=== PATIENT | female | born 1975 | race Caucasian/White ===

== ENCOUNTER → 2019-05-12 | Outpatient (CLI) | payer BC ==
[2019-05-12 15:09] LABS: FREE T4 (FREE THYROXINE) 0.85 NG/DL (0.70-1.48)
--- NOTE | 2019-05-12 15:35 | Diagnostic Imaging Report ---
PROCEDURE: US Thyroid. TECHNIQUE: Multiple real-time grayscale images were obtained of the thyroid in various projections. INDICATION: Hoarseness. COMPARISON: No prior studies are available for comparison. FINDINGS: Right lobe of thyroid measures 5.0 x 1.3 x 1.2 cm and the left lobe measures 5.2 x 2.8 x 2.4 cm. Isthmus is 4 mm in thickness. Hypoechoic nodule in lower pole right lobe measures 7 mm x 3 mm x 5 mm. Left lobe contains numerous solid nodules. Nodule in the upper pole measures 2.0 x 2.2 x 1.0 cm. This is wider than it is tall. No associated microcalcifications are seen. Midlobe solid nodule also is wider than tall measuring 1.3 x 1.0 x 1.5 cm. No microcalcifications are seen. Lower pole nodule is solid measuring 1.1 x 0.8 x 1.0 cm. No microcalcifications are seen. IMPRESSION: Multinodular thyroid with the largest nodule upper pole left lobe. Fine-needle aspiration of the dominant nodule in the left upper lobe could be performed. Dictated by: Dictated on workstation # [id number]
== END ==
LOC: RAD 14:20
PROVIDERS: ATTEND Otolaryngology Otolaryngology/Facial Plastic Surgery
DX: E04.2 Nontoxic multinodular goiter (principal)
CPT/HCPCS: 36415; 76536; 84439; 84443

== ENCOUNTER → 2019-06-11 | Outpatient (CLI) | payer OTHER ==
[~2019-06-11] VITALS: Ht 165.1 cm; Wt 129.5 kg
[~2019-06-11] MED LIST: LIDOCAINE 1% INJ 20 ML 20 ML VIAL INJ ONE
--- NOTE | 2019-06-11 12:13 | Diagnostic Imaging Report ---
INDICATION: Left thyroid nodule. Patient presents for ultrasound-guided fine-needle aspiration. FINDINGS: Patient was brought to the procedure room and placed on the table in the supine position. Ultrasound imaging of the left neck was performed to evaluate appropriate entry site. The left neck was then prepped and draped in the usual sterile fashion. A small amount of 1% lidocaine was utilized for local anesthesia. Total of four passes were made into the dominant nodule in the left isthmus/upper pole of the left lobe, utilizing 25-gauge needles and fine-needle aspiration technique. Patient tolerated the procedure well and left the department in stable condition. IMPRESSION: Successful ultrasound-guided fine-needle aspiration of left isthmus nodule. Pathology results are currently pending. Dictated by: Dictated on workstation # [id number]
== END ==
LOC: RAD 09:48
PROVIDERS: ATTEND Otolaryngology Otolaryngology/Facial Plastic Surgery
DX: E04.1 Nontoxic single thyroid nodule (principal)
CPT/HCPCS: 88173; 88305

== ENCOUNTER 2019-06-18 12:42 | Outpatient (RCR) | payer OTHER | END 2019-06-18 14:00 | disposition home or self-care (01) | PROVIDERS: ATTEND Otolaryngology Otolaryngology/Facial Plastic Surgery | DX: R49.0 Dysphonia (principal) ==

== ENCOUNTER → 2020-01-21 | Outpatient (CLI) | payer OTHER ==
[~2020-01-21] MED LIST changes: +ACET-2840 PO; +ACET325T49 PO; +APIX2.5T PO; +BISA10SU8 RC; +BLOO1EAC87 MC; +BUSP10TA95 PO; +COLE1TAB PO; +DOCU100C37 PO; +ELDE1CAP PO; +ENOX40DI13 SQ; +FEN12TD TD; +GLIP10TA13 PO; +GLIP5TAB13 PO; +HYDR4TAB PO; +INSU100I34 SQ; +LANC1COM6 MC; +LEVO75TA6 PO; -LIDOCAINE 1% INJ 20 ML 20 ML VIAL INJ ONE; +LORA10TA7 PO; +MOM10U PO; +MULT-1021 PO; +MULT-1136 PO; +NEED1DIS MC; +OMEP20CA18 PO; +OXYC1TAB87 PO; +PEN-53 MC; +SENN-20 PO
--- NOTE | 2020-01-21 11:55 | Diagnostic Imaging Report ---
INDICATION: Right wrist pain. Time of exam 11:06 AM 3 views right wrist were obtained. Distal radius and ulna are intact. Carpus is intact. Metacarpals are unremarkable. No fractures are seen. IMPRESSION: No acute bony abnormality is detected. Dictated by: Dictated on workstation # [id number]
== END ==
LOC: RAD FS 10:53
PROVIDERS: ATTEND Nurse Practitioner Family
DX: M25.531 Pain in right wrist (principal)
CPT/HCPCS: 73110

== ENCOUNTER 2020-03-31 20:39 | Outpatient (CLI) | payer OTHER | END 2020-04-01 06:47 | disposition home or self-care (01) | LOC: SLEEP 20:39 | PROVIDERS: ATTEND Nurse Practitioner Family | DX: G47.33 Obstructive sleep apnea (adult) (pediatric) (principal); G47.36 Sleep related hypoventilation in conditions classified elsewhere; G47.61 Periodic limb movement disorder | CPT/HCPCS: 95810 ==

== ENCOUNTER → 2020-05-16 | Outpatient (CLI) | payer OTHER | LOC: LAB FS 10:40 | PROVIDERS: ATTEND Nurse Practitioner Family | DX: Z01.812 Encounter for preprocedural laboratory examination (principal); Z20.828 Contact with and (suspected) exposure to other viral communicable diseases | CPT/HCPCS: 87635 ==

== ENCOUNTER → 2020-05-23 | Outpatient (CLI) | payer OTHER | LOC: SLEEP 19:17 | PROVIDERS: ATTEND Nurse Practitioner Family | DX: G47.33 Obstructive sleep apnea (adult) (pediatric) (principal) | CPT/HCPCS: 95811 ==

== ENCOUNTER 2020-06-28 12:15 | Inpatient (IN) | payer OTHER ==
[~2020-06-28] VITALS: Ht 165 cm; Wt 134.1 kg
[2020-06-28] MEDS ORDERED: CYAN-41 PO (13:14)
[2020-06-28] MEDS ORDERED: HYDR2TAB6 PO (13:14)
[2020-06-28] MEDS ORDERED: INSU100I34 SQ (13:14)
[2020-06-28] MEDS ORDERED: ACET-2650 PO (13:14)
[2020-06-28] MEDS ORDERED: CALC500T64 PO (13:14)
[2020-06-28] MEDS ORDERED: CYCL10TA9 PO (13:14)
[2020-06-28] MEDS ORDERED: DULA1.5P2 SQ (13:14)
[2020-06-28] MEDS ORDERED: ACET-2267 PO (13:14)
[2020-06-28] MEDS ORDERED: ASPI-1238 PO (13:14)
[2020-06-28] MEDS ORDERED: FOLI1TAB33 PO (13:14)
[2020-06-28] MEDS ORDERED: FLUO20CA46 PO (13:14)
[2020-06-28] MEDS ORDERED: L.AC1CAP6 PO (13:14)
[2020-06-28] MEDS ORDERED: MULT-1136 PO (13:14)
[2020-06-28] MEDS ORDERED: GLIP-30 PO (13:14)
[2020-06-28] MEDS ORDERED: NAPR-915 PO (13:14)
[2020-06-28] MEDS ORDERED: BUSP10TA95 PO (13:14)
[2020-06-28] MEDS ORDERED: diphenhydrAMINE 25 MG TAB (BENADRYL) PO PRN (14:00)
[2020-06-28] MEDS ORDERED: ALPRAZolam 0.25 MG (XANAX) TAB PO PRN (14:00)
[2020-06-28] MEDS ORDERED: MELATONIN 3 MG TABLET PO PRN (14:00)
[2020-06-28] MEDS ORDERED: LACTULOSE SYRUP 10GM/15ML (ENULOSE) 30ML UDC PO PRN (14:00)
[2020-06-28] MEDS ORDERED: guaiFENesin/CODEINE (ROBITUSSIN AC) 10ML UDC PO PRN (14:00)
[2020-06-28] MEDS ORDERED: DOCUSATE SODIUM 100 MG (COLACE) CAP PO PRN (14:00)
[2020-06-28] MEDS ORDERED: LOPERAMIDE 2 MG (IMODIUM) TABLET PO PRN (14:00)
[2020-06-28] MEDS ORDERED: CALCIUM CARBONATE 500 MG (TUMS) TAB.CHEW PO PRN (14:00)
[2020-06-28] MEDS ORDERED: BISACODYL 10 MG SUPP (DULCOLAX) PR PRN (14:00)
[2020-06-28] MEDS ORDERED: ONDANSETRON 4 MG (ZOFRAN) ORAL DISSOLVE TAB PO PRN (14:00)
[2020-06-28] MEDS ORDERED: FLEET ENEMA ADULT 1 EA BTL PR PRN (14:00)
[2020-06-28] MEDS ORDERED: ERGO50006 PO (15:00)
[2020-06-28] MEDS ORDERED: GLIP5TAB13 PO (15:00)
[2020-06-28] MEDS ORDERED: CNC1KV IM (15:00)
--- NOTE | 2020-06-28 15:21 | Occupational Therapy Eval ---
OT Evaluation-General/PLF Medical Diagnosis Admission Date Jun 28, 2020 at 15:06 Medical Diagnosis: ORIF R femur with IMN Onset Date: Jun 23, 2020 Therapy Diagnosis Therapy Diagnosis: debility, decreased ADL Status Precautions Precautions/Isolations: Fall Prevention, Standard Precautions Weight Bear Status Weight Bearing Restriction: Touch Toe Bearing Location Restriction: R LE Referral Physician: Jung Ignacio Reason: Evaluation/Treatment Medical History Pertinent Medical History: DM, HTN Additional Medical History cholecystectomy, hypothyroidism, obesity. Current History 12/20/2019 ORIF RLE with plates/screws. 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 06/23/2020 ORIF R femur with IMN Social History Home: Single Level Current Living Status: Alone Entry Into Home: Stairs With Railing Steps Into Home: 3 Pt's Parents house: ramp. Pt's house 3 steps to enter with rails. Plans to return to parents if needed at discharge, but wants to return to her apartment. ADL-Prior Level of Function SCALE: Activities may be completed with or without assistive devices. 9-Qypmhtcuyj-qtmxjan completes the activity by him/herself with no assistance from a helper. 5-Set-up or Clean-up Assistance-helper sets up or cleans up; patient completes activity. [place] assists only prior to or following the activity. 4-Supervision or Touching Assistance-helper provides verbal cues and/or touching/steadying and/or contact guard assistance as patient completes activity. Assistance may be provided throughout the activity or intermittently. 3-Partial/Moderate Assistance-helper does LESS THAN HALF the effort. [place] lifts, holds or supports trunk or limbs, but provides less than half the effort. 2-Substantial/Maximal Assistance-helper does MORE THAN HALF the effort. [place] lifts or holds trunk or limbs and provides more than half the effort. 5-Zhuhwqgwf-onimgo does ALL the effort. Patient does none of the effort to complete the activity. Or, the assistance of 2 or more helpers is required for the patient to complete the activity. If activity was not attempted, code reason: 7-Patient Refused. 9-Not Applicable-not attempted and the patient did not perform the activity before the current illness, exacerbation or injury. 10-Not Attempted due to Environmental Limitations-(lack of equipment, weather restraints, etc.). 88-Not Attempted due to Medical Conditions or Safety Concerns. ADL PLOF Comments Pt independent with all ADLS/IADLS at PLOF, and functional mobility using bilateral canes. Pt has a tub/shower at both parents house and her own house. She owns a commode for over the toilet, umbrella finisher, tub bench, w/c with elevated leg rests, and BUE platform walker. In pt's apartment there is 1 grab bar in her shower, and in her parent's house, grab bars in shower and by toilet. Self Care: Independent Functional Cognition: Independent DME/Equipment: Bath Bench, Bedside Commode, Grab Bars, Reachers, Tub/Shower Drive Self: Yes OT Current Status Subjective Pt agreeable to OT evaluation then OT/PT cotreat. Pt reports 3/10 pain at start of tx, asking for pain medicine, nurse notified. Mental Status/Objective Patient Orientation: Person, Place, Time, Situation Attachments: Drains, Knee Immobilizer Current Glasses/Contacts: Yes Hearing Aids: No Dentures/Partials: No Hand Dominance: Right Upper Extremity ROM WFL, BUE shoulder flexion to approx 150 degrees, able to touch back of head with hands. Upper Extremity Coordination WFL thumb to finger opposition Upper Extremity Sensation WFL, pt denies tingling/numbness BUEs Upper Extremity Strength grossly 4+/5 MMT ADL-Treatment Eating (QC): 6 (Per pt report and clinical judgement) Oral Hygiene (QC): 7 Shower/Bathe Self (QC): 3 (Min A, pt able to wash UEs, chest/abdomen, periarea, buttocks, and LEs. Slight assistance washing R foot.) Upper Body Dressing (QC): 5 (set up assist, pt doffed/donned bra and pulley mortiser operator shirt.) Lower Body Dressing (QC): 3 (Pt able to doff/don pants, assist with donning/doffing knee immobilizer due to difficulty reaching lower straps.) On/Off Footwear (QC): 3 (Pt able to doff bilateral gripper socks, don L sock. Pt able to thread R sock over toes but assist managing up.) Toileting Hygiene (QC): 4 (CGA, pt able to manage clothing and perform hygiene.) Other Treatments R knee immobilizer with activity, can be off in bed or recliner with legs elevated. OT evaluation complete. OT/PT cotreat due to skill of 2 clinicians required which a rehabilitation psychologist could not perform in order to coordinate UE/LEs with tasks, and due to pt's limitations in strength, activity tolerance, standing balance, and mobility. OT focused on UE placement, cues for sequencing and safety and ADLs. PT focused on LE placement, gross overall movement, transfers, and ambulation. Pt used BUE platform walker to perform functional mobility over uneven surface, then transfer in/out of car simulation (see PT eval for QC). Pt then went to room, transferring onto toilet, completed toileting, then used platform walker to stand at sink to wash hands. Pt transferred to recliner, stating fatigue requiring rest break. Pt completed dressing and sponge bath at recliner, assistance with knee immobilizer. Pt then transferred to bed, polar pack in place. Post tx, pt laying in bed, call light in reach and all needs met. Education OT Patient Education: Correct positioning, Energy conservation, Modified ADL techniques, Progress toward Goal/Update tx plan, Purpose of tx/functional activities, Rehab process, Safety issues Teaching Recipient: Patient Teaching Methods: Discussion Response to Teaching: Verbalize Understanding OT Short Term Goals Short Term Goals Time Frame: Jul 05, 2020 Oral hygiene: 5 Toileting hygiene: 5 Shower/bathe self: 5 Lower body dressin OT Alf Goals Gyroscopic Instrument Tester Goals Time Frame: Jul 14, 2020 Eating (QC): 6 Oral Hygiene (QC): 6 Toileting Hygiene (QC): 6 Shower/Bathe Self (QC): 6 Upper Body Dressing (QC): 6 Lower Body Dressing (QC): 6 On/Off Footwear (QC): 6 Additional Goals: 1-Demonstrate ADL Tasks, 2-Verbalize Understanding, 3-Improv eStrength/Zoë 1=Demonstrate adherence to instructed precautions during ADL tasks. 2=Patient will verbalize/demonstrate understanding of assistive devices/modifications for ADL. 3=Patient will improve strength/tolerance for activity to enable patient to p erform ADL's. OT Education/Plan Problem List/Assessment Assessment: Decreased Activ Tolerance, Decreased UE Strength, Impaired Funct Balance, Impaired I ADL's, Impaired Self-Care Skills Discharge Recommendations Plan/Recommendations: Continue POC Treatment Plan/Plan of Care Patient would benefit from OT for education, treatment and training to promote independence in ADL's, mobility, safety and/or upper extremity function for ADL's. Plan of Care: ADL Retraining, Functional Mobility, Group Exercise/Act as Ind, U E Funct Exercise/Act Treatment Duration: Jul 14, 2020 Frequency: At least 5 of 7 days/Wk (IRF) Estimated Hrs Per Day: 1.5 hours per day Agreement: Yes Rehab Potential: Good Time/GCodes Start Time: 14:50 Stop Time: 16:00 Total Time Billed (hr/min): 70 Billed Treatment Time 7047-8841 OT evaluation, [id number] OT/PT cotreat 1, EVM (10'), FA (15'), ADL 3 (45') LETY MACARIO OT Jun 28, 2020 15:21
[2020-06-28] MEDS ORDERED: busPIRone 10 MG (BUSPAR) TAB PO PRN (15:30)
[2020-06-28] MEDS ORDERED: NON-FORMULARY MEDICATION 1 EA EA (Dulaglutide (Trulicity) 1.5 MG) SQ SCH (15:30)
[2020-06-28] MEDS ORDERED: CYANOCOBALAMIN INJ 1000 MCG/ML IM SCH (15:30)
[2020-06-28] MEDS ORDERED: VITAMIN D2 1.25 MG (50,000 UNITS) CAP PO SCH (15:30)
--- NOTE | 2020-06-28 15:32 | Physical Therapy Evaluation ---
PT Evaluation-General Medical Diagnosis Admission Date Jun 28, 2020 at 15:06 Medical Diagnosis: ORIF R femur with IMN Onset Date: Jun 23, 2020 Therapy Diagnosis Therapy Diagnosis: impaired mobility, strength, endurance, ROM Precautions Precautions/Isolations: Fall Prevention, Standard Precautions Weight Bear Status Right Lower Extremity: Right Touch Toe Bearing right knee immobilizer on with activity, she can have it off when in bed or in recliner with legs elevated Referral Physician: Yarelis Feng DO Reason for Referral: Evaluation/Treatment Medical History Pertinent Medical History: DM, Heart Failure, HTN Reviewed History: Yes Social History Home: Single Level Current Living Status: Alone Entry Into Home: Stairs With Railing PT Steps Into Home: 3 Patient states she has been staying with her parents since her issues with her leg and their house has a ramp. Prior Prior Level of Function SCALE: Activities may be completed with or without assistive devices. 6-Zzutoujwua-ductwin completes the activity by him/herself with no assistance from a helper. 5-Set-up or Clean-up Assistance-helper sets up or cleans up; patient completes activity. [place] assists only prior to or following the activity. 4-Supervision or Touching Assistance-helper provides verbal cues and/or touching/steadying and/or contact guard assistance as patient completes activity. Assistance may be provided throughout the activity or intermittently. 3-Partial/Moderate Assistance-helper does LESS THAN HALF the effort. [place] lifts, holds or supports trunk or limbs, but provides less than half the effort. 2-Substantial/Maximal Assistance-helper does MORE THAN HALF the effort. [place] lifts or holds trunk or limbs and provides more than half the effort. 5-Btbmuygid-dpplvh does ALL the effort. Patient does none of the effort to complete the activity. Or, the assistance of 2 or more helpers is required for the patient to complete the activity. If activity was not attempted, code reason: 7-Patient Refused. 9-Not Applicable-not attempted and the patient did not perform the activity before the current illness, exacerbation or injury. 10-Not Attempted due to Environmental Limitations-(lack of equipment, weather restraints, etc.). 88-Not Attempted due to Medical Conditions or Safety Concerns. Bed Mobility: 6 Transfers (B,C,W/C): 6 Gait: 6 Indoor Mobility (Ambulation): Independent Prior Device Use: bilateral platform walker and two single point canes PT Evaluation-Current Subjective Patient in WC pre tx, agrees to PT, has 3/10 pain in right leg. Will be co- treating with OT for part of tx due to poor patient mobility, strength, endurance, coordinate UE and LE during activity, safety and reduce risk of falls. Pt/Family Goals to be independent at home Objective Patient Orientation: Person, Place, Situation right knee immobilizer ROM/Strength ROM Lower Extremities WNL in LLE Strength Lower Extremities LLE hip flexion 4+/5, knee flexion 5/5, knee extension 5/5, dorsiflexion 5/5 Sensory Vision: Wears Glasses Hearing: Functional Sensation Right Lower Extremit: Intact Sensation Left Lower Extremity: Intact Transfers Roll Left & Right (QC): 6 Sit to Lying (QC): 3 Lying to Sitting/Side of Bed(Q: 3 Sit to Stand (QC): 4 Chair/Zog-nq-Zycei Xfer(QC): 4 Toilet Transfer (QC): 4 Car Transfer (QC): 4 Patient performs bed mobility with independence, supine <-> sit min assist, sit <-> stand CGA, transfers CGA, car transfer CGA. Occasional cues for positioning. Gait Does the Patient Walk?: Yes Mode of Locomotion: Walk Anticipated Mode of Locomotion: Walk Walk 10 feet (QC): 4 Walk 50 ft with 2 Turns(QC): 4 Walk 150 ft (QC): 88 Walking 10ft/uneven surface-QC: 4 Distance: 60'x2 Gait Assistive Device: Walker Platform (bilateral) Comments/Gait Description Patient can ambulate 60' with a bilateral platform walker with CGA (including 50' with at least 2 turns of 90 degrees and 10' over an uneven surface). P malia has occasional unsteadiness but no LOB, she needs occasional cues to maintain TTWB on the right side but is mostly compliant. Wheelchair Training Does the Pt Use a Wheelchair?: No Wheel 50 ft with 2 turns (QC): 9 Wheel 150 ft (QC): 9 Stairs 1 Step (curb) (QC): 88 4 Steps (QC): 88 12 Steps (QC): 88 Balance Sitting Static: Normal Sitting Dynamic: Normal Standing Static: Good Standing Dynamic: Good Picking up an Object (QC): 88 Treatment PT performed bed mobility and transfers, ambulation, assisted with positioning and standing during toileting and bathing and dressing, OT worked on toileting and bathing and dressing, UE positioning and safety during activity. Assessment/Needs Patient has impaired mobility, strength, endurance, ROM. Patient in bed post tx with nurse call, phone, tray, [facility] care on, all needs met. Patient cannot ambulate with a regular rolling walker because it hurts her hands/wrists, patient is CGA with transfers and ambulation. Rehab Potential: Fair PT Short Term Goals Short Term Goals Time Frame: Jul 05, 2020 Roll Left & Right: 6 Sit to lyin Lying to sitting on side of be: 6 Sit to stand: 6 Chair/lnt-to-qmidi transfer: 5 Walk 10 feet: 5 Walk 50 feet with two turns: 5 Walk 150 feet: 5 PT Senior Care Goals Senior Care Goals PT Cardiac Nurse Goals Time Frame: Jul 19, 2020 Roll Left & Right (QC): 6 Sit to Lying (QC): 6 Lying-Sitting on Side/Bed(QC): 6 Sit to Stand (QC): 6 Chair/Jtr-bp-Pxvhx Xfer(QC): 6 Toilet Transfer (QC): 6 Car Transfer (QC): 6 Does the Patient Walk: Yes Walk 10 feet (QC): 6 Walk 50ft with 2 Turns (QC): 6 Walk 150 ft (QC): 6 Walking 10ft on Uneven Surface: 6 1 Step (curb) (QC): 6 4 Steps (QC): 3 12 Steps (QC): 88 Picking up an Object (QC): 88 Wheel 50 feet with 2 turns (QC: 9 Wheel 150 feet: 9 PT Plan Problem List Problem List: Activity Tolerance, Functional Strength, Safety, Balance, Gait, Transfer, Bed Mobility, ROM Treatment/Plan Treatment Plan: Continue Plan of Care Treatment Plan: Bed Mobility, Education, Functional Activity Zoë, Functional Strength, Group Therapy, Gait, Safety, Therapeutic Exercise, Transfers Treatment Duration: Jul 19, 2020 Frequency: At least 5 of 7 days/Wk (IRF) Estimated Hrs Per Day: 1.5 hours per day Patient and/or Family Agrees t: Yes Safety Risks/Education Patient Education: Gait Training, Transfer Techniques, Reviewed Precautions, Correct Positioning, Reviewed Don/Doff Brace, Disease Process Teaching Recipient: Patient Teaching Methods: Demonstration, Discussion Response to Teaching: Reinforcement Needed Discharge Recommendations Plan Patient will perform bed mobility and transfer training, balance and endurance training, functional strengthening, stair training, gait training, and education, to improve functional mobility and independence at home. Therapy Discharge Recommendati: Home & Family Time/GCodes Time In: 1440 Time Out: 1600 Total Billed Treatment Time: 70 Total Billed Treatment 1 visit EVM 10' FA 60' PT eval from [id number], OT eval from [id number], co-treat from [id number]. LORI CHAMBERLAIN PT Jun 28, 2020 15:32
--- NOTE | 2020-06-28 15:37 | PM&R Post Admission Assessment ---
PM&R Date of Visit: Jun 28, 2020 Time of Visit: 18:00 History of Present Illness CC: Right femur fracture bucky breakage with ORIF Revision HPI: This is a 45yoWF known to us from rehab stay December of last year for a right femur fracture- was non-weight bearing at that point and went home with her parents, she is S/P revision of the ORIF of the right femur on 06/23/[address] Randhawa along with Dr Kerr with bone graft and removal of deep-ortho implant, she has a history of type II DM, obesity, hypothyroidism and post-op anemia, her Hgb is 8.6, she will return home with her parents, she is at this current time minimum assist for bed mobility, transfers, and gait is 40 feet with a platform walker. Overall she is doing very well and will benefit from inpatient rehab. BM+ today. Received iron infusions while at [facility]. Diet changed to accommodate her choices. Assessment: s/p right distal hip fracture Morbid obesity BMI 51 RAY on CPAP Night time hypoxia DM with variable sugars Plan: Monitor sugar closely May need DC OHA and transition to insulin IRF protocol Previous IRF stay 12/25/19: Monitor sugar 200's consistently Dietary consult Friday Pain control but decrease as much as possible 12/26/19: Fentanyl patch 12mcg low dose in addition to Dilaudid breakthrough BM regimen Carb restriction working well Dietary consult tomorrow 12/27/19: Continue Fentanyl Hemoglobin 8.4 dropped 2 points will check Iron level will likely need Iron Infusions Pain only at a 4 right now Needs to have a bowel movement will be given Laxatives Dietary consult for minimizing carbs 12/28/19: Work on decreasing Carbohydrates Dietary consult appreciated Pain control improved 12/29/19: Start low dose Levemir Blood sugar management aggressively Minimize Carbohydrates 12/30/19: Continue Fentanyl patch may need to increase to the 25 Increase Diabetic medication Monitor closely 12/31/19: Iron infusions to complete Blood sugar management Monitor closely 01/01/2020: Continue insulin Glyburide 5 mg twice daily has been a good change Anxiety treatment Pain control with Fentanyl patch 01/02/20: Pain controlled Bowel regimen Monitor closely DC 01/03/20: Hemoglobin 9.3 Will need one more dose of IV Iron before she goes home on Friday Bowels moved yesterday Continue pain control 01/04/20: It [birth year] birthday today Mid line was replaced yesterday Blood sugars are reasonable Giving her her own insulin injections Bowels moved yesterday Discharge tomorrow Hospital course: Pt had an uneventful hospital course for twelve days after suffering a right distal femur fracture. She did respond to Fentanyl patch of 12 micrograms along with Dilaudid along with Tylenol with good results. Narcotic bowel resolved with laxatives and she was able to participate in therapy with wheelchair mobility and regain enough of her ADLs in order to return home. Overall she did well, was discharged in improved condition, started her on insulin and will monitor pt closely with a close follow-up with PCP. Past Ympwujo-Bglpwd-Vtcius Hx Past Med/Social Hx: Reviewed Nursing Past Med/Soc Hx, Reviewed and Corrections made Patient Social History Marrital Status: single Employed/Student: employed Alcohol Use: Denies Use Smoking Status: Never a Smoker Recent Hopitalizations: Yes Seasonal Allergies Seasonal Allergies: No Past Medical History Surgeries: Orthopedic (right femur x 2) Respiratory: Sleep Apnea Currently Using CPAP: Yes Currently Using BIPAP: No Cardiac: High Cholesterol, Hypertension Neurological: Neuropathy Gastrointestinal: Gastroesophageal Reflux, Chronic Diarrhea Musculoskeletal: Arthritis Endocrine: Diabetes, Non-Insulin dep History of Blood Disorders: No Adverse Reaction to Blood [place]: No Self Care: Independent Functional Cognition: Independent 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 Drive Self: Yes PM&R Allergy/Meds/Data Review Allergies Coded Allergies: tramadol (Unverified Allergy, Unknown, Nausea, 12/24/19) dizzy, nausea, inability to think hydrocodone (Unverified Adverse Reaction, Unknown, Nausea, 12/24/19) dizzy, nausea, inability to think oxycodone (Unverified Adverse Reaction, Unknown, Nausea, 12/24/19) dizzy, nausea, inabiity to think Home Medications Scheduled Acetaminophen (Tylenol Extra Strength), 1,000 MG PO Q8H, (Reported) Aspirin (Aspirin EC), 81 MG PO BID, (Reported) Calcium Carbonate (Calcium Carbonate), 500 MG PO DAILY, (Reported) Colestipol HCl (Colestipol HCl), 1 GM PO BID, (Reported) Cyanocobalamin (Cyanocobalamin Injection), 1,000 MCG IM MONTHLY, (Reported) Cyanocobalamin (Vitamin B-12) (Vitamin B-12), 1,000 MCG PO DAILY, (Reported) Dulaglutide (Trulicity), 1.5 MG SQ WED, (Reported) Elderberry Fruit and Flower (Black Elderberry 575 mg Cap), 1 EACH PO DAILY, (Reported) Ergocalciferol (Vitamin D2) (Vitamin D2), 1,250 MCG PO TU,FRI, (Reported) Fluoxetine HCl (Fluoxetine HCl), 20 MG PO DAILY, (Reported) Folic Acid (Folic Acid), 1 MG PO DAILY, (Reported) Glipizide (Glipizide), 5 MG PO DAILY, (Reported) Insulin Glargine,Hum.rec.anlog (Basaglar Kwikpen U-100), 10 UNIT SQ BID, (Rep orted) L.acidoph & Paracasei,B.lactis (Probiotic), 1 EACH PO DAILY, (Reported) Levothyroxine Sodium (Levothyroxine Sodium), 75 MCG PO DAILY, (Reported) Loratadine (Loratadine), 10 MG PO HS, (Reported) Multivitamin (Multivitamin), 1 EACH PO DAILY, (Reported) Naproxen (Naproxen), 500 MG PO BID, (Reported) Omeprazole (Omeprazole), 20 MG PO BID, (Reported) Scheduled PRN Acetaminophen (Tylenol Arthritis), 650 MG PO TID PRN for PAIN-MILD (1-4), (Reported) Buspirone HCl (Buspirone HCl), 10 MG PO TID PRN for ANXIETY, (Reported) Cyclobenzaprine HCl (Cyclobenzaprine HCl), 10 MG PO Q8H PRN for SPASMS, (Reported) Hydromorphone HCl (Hydromorphone HCl), 1 MG PO Q4H PRN for PAIN-SEVERE (8-10), (Reported) Discontinued Medications Acetaminophen (Acetaminophen), 650 MG PO Q4H PRN for PAIN-MILD (1-4) Discontinued Reason: Duplicate Order Apixaban (Eliquis), 2.5 MG PO BID Discontinued Reason: No Longer Taking Blood-Glucose Meter (Blood Glucose Meter), EACH , (DME) Discontinued Reason: Duplicate Order Buspirone HCl (Buspirone HCl), 10 MG PO TID PRN for ANXIETY Discontinued Reason: Duplicate Order Fentanyl (Fentanyl Patch 12 MCG), 12 MCG TD Q72H Discontinued Reason: Duplicate Order Glipizide (Glipizide), 5 MG PO BIDAC Discontinued Reason: Duplicate Order Glipizide (Glipizide Xl), 5 MG PO, (Reported) Discontinued Reason: Duplicate Order Hydromorphone HCl (Hydromorphone HCl), 4 MG PO Q6HR PRN for PAIN-SEVERE (5-10) Discontinued Reason: Duplicate Order Insulin Glargine,Hum.rec.anlog (Basaglar Kwikpen U-100), 10 UNIT SQ BID Discontinued Reason: Duplicate Order Lancets/Blood Glucose Strips (Lancet 30G-Glucose Test Strip), EACH MC, (DME) Discontinued Reason: Duplicate Order Multivits-Min/Iron/FA/Lutein (Centrum Silver Women Tablet), 1 EACH PO DAILY, (Reported) Discontinued Reason: Duplicate Order [place], Insulin Disposable (Pen [place]), EACH MC, (DME) Discontinued Reason: Duplicate Order Pen Needle, Diabetic (Advocate Pen Needle), EACH MC BID, (DME) Discontinued Reason: Duplicate Order Sennosides/Docusate Sodium (Senna-Time S Tablet), 1 EA PO BID Discontinued Reason: Duplicate Order Current Medications Current Medications Reviewed Review of Systems Constitutional: see HPI, malaise, weakness EENTM: no symptoms reported Respiratory: no symptoms reported Cardiovascular: no symptoms reported Gastrointestinal: no symptoms reported Genitourinary: no symptoms reported Musculoskeletal: joint pain (right leg pain) Skin: no symptoms reported Psychiatric/Neurological: No Symptoms Reported All Other Systems Reviewed Negative Unless Noted: Yes Physical Exam Physical Exam Vital Signs Capillary Refill : Height, Weight, BMI Height: '" Weight: lbs. oz. kg; 51.50 BMI Method: General Appearance: No Apparent Distress, WD/WN, Obese, Other (pale) Eyes: Bilateral Eye Normal Inspection, Bilateral Eye PERRL HEENT: PERRL/EOMI, Normal ENT Inspection, Pharynx Normal Neck: Full Range of Motion, Normal Inspection, Non Tender, Supple, Carotid Bruit Respiratory: Chest Non Tender, Lungs Clear, Normal Breath Sounds, No Accessory Muscle Use, No Respiratory Distress Cardiovascular: Regular Rate, Rhythm, No Edema, No Gallop, No JVD, No Murmur, Normal Peripheral Pulses Gastrointestinal: Normal Bowel Sounds, No Organomegaly, No Pulsatile Mass, Non Tender, Soft Back: Normal Inspection, No CVA Tenderness, No Vertebral Tenderness Extremity: Normal Capillary Refill, Normal Inspection, Normal Range of Motion (except right leg), Non Tender, No Calf Tenderness, No Pedal Edema Neurologic/Psychiatric: Alert, Oriented x3, No Motor/Sensory Deficits, Normal Mood/Affect, Motor Weakness (right leg) Skin: Normal Color, Warm/Dry Lymphatic: No Adenopathy PM&R Medical Assessment & Plan REHAB/MEDICAL ASSESSMENT AND PLAN: REHAB IMPAIRMENT GROUP: Right hip fracture revision due to breakage of bucky ETIOLOGIC DIAGNOSIS: Right hip fracture revision due to breakage of bucky The comorbidities that impact the patients function and/or functional outcome by: obesity, DM, anxiety, severe pain issues, anemia, iron deficiency, RAY on CPAP REHAB PLAN: The patient is being admitted to our comprehensive inpatient rehabilitation facility and can tolerate the intensity of service consisting of at least: 180 minutes of therapy a day, 5 out of 7 days a week Rehab treatment will consist of: PT OT will focus on regaining function of ambulation with right leg limitations and gain independence in ADL's in order to return home to live independently The patient/family has a good understanding of our discharge process and will benefit from an interdisciplinary inpatient rehabilitation program. The patient has potential to make improvement and is in need of at least two of the following multidisciplinary therapies including but not limited to physical, occupational, speech, and prosthetics and orthotics. Additionally the patient will need services from respiratory, nutritional services, wound care, ps ychology, etc. (Customize this to each patient). Given the patients complex condition and risk of further medical complications, rehabilitation services cannot be safely or effectively provided at a lower level of care such as a custodial facility. BARRIERS TO DISCHARGE: weight bearing limitations ESTIMATED LOS: 14 days DISPOSITION: Home RELEVANT CHANGES SINCE PREADMISSION SCREENING: I have compared the patients medical and functional status at the time of the preadmission screening and there are: no changes PROGNOSIS: Good REHABILITATION GOALS: 1. PT OT will focus on regaining function of ambulation with right leg limitations and gain independence in ADL's in order to return home to live independently All the above goals were reviewed with the patient and he/she is in agreement. By signing this document, I acknowledge that I have personally performed a full physical examination on this patient within 24 hours of admission to this inpatient rehabilitation facility and have determined the patient to be able to tolerate the above course of treatment at an intensive level for a reasonable period of time. I will be completing a detailed individualized Plan of Care for this patient by day #4 of the patients stay based upon the Preadmission Screen, the Post-Admission Evaluation, and the therapy evaluations. Admission Dx/Comorbidities: (1) History of revision of total replacement of right hip joint ICD Codes: Z96.641 - Presence of right artificial hip joint (2) Diabetes ICD Codes: E11.9 - Type 2 diabetes mellitus without complications (3) Obesity, morbid, BMI 50 or higher ICD Codes: E66.01 - Morbid (severe) obesity due to excess calories (4) RAY on CPAP ICD Codes: G47.33 - Obstructive sleep apnea (adult) (pediatric); Z99.89 - Dependence on other enabling machines and devices Assessment/Plan Assessment and Plan Assess & Plan/Chief Complaint Assessment: s/p right distal hip fracture bucky breakage s/p revision 06/23/[address] [facility] [address] Randhawa with removal of deep implant and replacement Morbid obesity BMI 47 RAY on CPAP Night time hypoxia DM with variable sugars Post op anemia due to acute blood loss HTN GERD Plan: IRF protocol Pain control Monitor hgb Iron infusions? RAHUL BRIDGES DO Jun 28, 2020 15:37
[2020-06-28] MEDS: inSUlin ASPART (NovoLOG) 1 UNIT/0.01 ML (CHARGE PER UNIT) SC SCH ×2 (16:00→20:28)
[2020-06-28] MEDS: HYDROmorphone (DILAUDID) 2 MG TAB PO PRN ×2 (16:23→20:50)
--- NOTE | 2020-06-28 16:39 | Progress Note ---
CALLY ROSENBERG MED STUDENT 06/28/20 0476: Progress Note CC: Revision ORIF R femur HPI: This is a 45 year old female presenting to the inpatient rehab facility transferred from [facility] complaining of 3/10 pain along her femur. She had a commuted distal femur fracture after ORIF in 2019. On 06/23/2020, she had a revision of the ORIF of the right femur with IMN, bone graft, and removal of deep ortho implant. She had a unilateral right hip fract ure prothesis that was a nonunion of the fracture site and plate breakage. She states that she received 2 blood transfusions during the surgery. She received iron yesterday and today. She states she needs 2 more iron transfusions and then a repeat of the series. Hb was 8.6. She has a Prevena plus VAC placed on the right hip/knee incision s/p revision of ORIF. She cannot function independently or do ALDs. She states she is on nonweightbearing exercises and can flex her foot. She is unable to flex at the knee but hoping she will regain some function. Her goal is to function enough to become independent and not have to go back to live with her parents. She is on fall precautions. Her PCP is Amisha Clemens NP. PMH: DM2, obesity, hypothyroid ([place]), post op anemia (Hb 8.6), arthritis PSH: cholecystectomy. ORIF right femur, right ankle surgery ALL: tramadol, hydrocodone, oxycodoneHome Meds: colestipol (for diarrhea from gallbadder removal), loratadine, multivitamins, omeprazole, acetaminophen, buspirone (for anxiety after surgery), calcium carbonate, diphenhydramine, dulaglutide, fluoxetine, glipizide, insulin glargine, levothyroixine, mecobalamin, meloxicam (for arthritis in shoulder after fall), probiotics, sambuscus SH: previously independent with ADLs. 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 Negative for DUKES, cough, SOB, fever. Exam: Patient is WN and in no acute distress. Lungs are clear bilaterally without retractions. Heart is RRR. Right leg is in brace. A&O x3. Labs/Imaging: Labs: N/A CT - large area of fibrous union X-ray - 06/23/20. Femur 2 views Rt. Thigh 2 views RT. Reason: post op. There is a long intramedullary bucky in place stabilizing the distal femoral metaphysics. Screws are in place stabilizing the metaphysics region. Considerations again given for osteomyelitis distal femur now stabilized by intramedullary bucky. Prominent arthritic change of the knee is noted. The hip shoes moderate osteoarthritis. Cutaneous surgical clips are multiple. Danilo Love DO A:Revision ORIF right femur Post operative anemia DM Hypothyroid P: Revision ORIF right femur - consult PT/OT. continue PT and OT Post op anemia - follow up with Luis about the blood and iron transfusions whether they need to be continued. DM - continue medications Hypothyroid - continue Levothyroxine Supervisory-Addendum Brief Verification & Attestation Results interpretation: Verified all documentation YARELIS BRIDGES DO 06/29/20 1102: Supervisory-Addendum Brief Verification & Attestation Participated in pt care: history, MDM, physical Personally performed: exam, history, MDM, supervision of care Care discussed with: Medical Student Procedures: n/a Results interpretation: Verified all documentation Verification and Attestation of Medical Student E/M Service A medical student performed and documented this service in my presence. I reviewed and verified all information documented by the medical student and made modifications to such information, when appropriate. I personally performed the physical exam and medical decision making. Yarelis Bridges, Jun 29, 2020,11:02 CALLY ROSENBERG MED STUDENT Jun 28, 2020 16:39 YARELIS BRIDGES DO Jun 29, 2020 11:02
[2020-06-28] MEDS: ACETAMINOPHEN 500 MG TAB (TYLENOL) PO SCH (17:34)
[2020-06-28 17:49] VITALS: BP 133/55
[2020-06-28] MEDS ORDERED: ACETAMINOPHEN 325 MG TABLET PO PRN (18:00)
[2020-06-28] MEDS: NAPROXEN 250 MG (NAPROSYN) TABLET PO SCH (20:49)
[2020-06-28] MEDS: LORATADINE (CLARITIN) 10 MG TAB PO SCH (20:49)
[2020-06-28] MEDS: ASPIRIN E.C. 81 MG (ECOTRIN) TAB PO SCH (20:49)
[2020-06-28] MEDS: SENNA W/DOCUSATE (SENOKOT S) TABLET PO SCH (20:50)
[2020-06-28] MEDS: COLESTIPOL 1 GM (COLESTID) TAB PO SCH (20:50)
[2020-06-28] MEDS: DOCUSATE SODIUM 100 MG (COLACE) CAP PO SCH (20:50)
[2020-06-28] MEDS: polyethylene glycoL POWDER 17 GM (MIRALAX) PACK PO SCH (20:50)
[2020-06-29] MEDS: ACETAMINOPHEN 500 MG TAB (TYLENOL) PO SCH ×3 (00:47→15:37)
[2020-06-29] MEDS: HYDROmorphone (DILAUDID) 2 MG TAB PO PRN ×5 (01:06→20:51)
[2020-06-29 05:21] LABS: HEMATOCRIT 26 % (35-52); MONOCYTES # (AUTO) 0.4 10^3/uL (0.0-1.0); MONOCYTES % (AUTO) 7 % (0-12)
[2020-06-29 05:22] LABS: BASOPHILS % (AUTO) 1 % (0-10); EOSINOPHILS # (AUTO) 0.2 10^3/uL (0.0-0.3); EOSINOPHILS % (AUTO) 3 % (0-10); HEMOGLOBIN 8.6 g/dL (11.5-16.0); LYMPHOCYTES # (AUTO) 1.4 10^3/uL (1.0-4.0); LYMPHOCYTES % (AUTO) 23 % (12-44); MEAN CORPUSCULAR HEMOGLOBIN 31 pg (25-34); MEAN CORPUSCULAR HGB CONC 33 g/dL (32-36); MEAN CORPUSCULAR VOLUME 93 fL (80-99); MEAN PLATELET VOLUME 10.4 fL (9.0-12.2); NEUTROPHILS # (AUTO) 3.9 10^3/uL (1.8-7.8); NEUTROPHILS % (AUTO) 63 % (42-75); PLATELET COUNT 145 10^3/uL (130-400); WHITE BLOOD COUNT 6.1 10^3/uL (4.3-11.0)
[2020-06-29 05:39] LABS: ALANINE AMINOTRANSFERASE 16 U/L (0-55); ALBUMIN 2.7 GM/DL (3.2-4.5); ALKALINE PHOSPHATASE 79 U/L (40-136); BILIRUBIN,TOTAL 0.4 MG/DL (0.1-1.0); BUN/CREATININE RATIO 12; CALCIUM 8.8 MG/DL (8.5-10.1); CARBON DIOXIDE 24 MMOL/L (21-32); CHLORIDE 107 MMOL/L (98-107); GFR ESTIMATED > 60; GLUCOSE 149 MG/DL (70-105); SODIUM 140 MMOL/L (135-145); TOTAL PROTEIN 5.3 GM/DL (6.4-8.2)
[2020-06-29 06:25] VITALS: BP 109/54
[2020-06-29] MEDS: inSUlin ASPART (NovoLOG) 1 UNIT/0.01 ML (CHARGE PER UNIT) SC SCH ×4 (06:25→20:59)
[2020-06-29] MEDS: glipiZIDE 5 MG (GLUCOTROL) TAB PO SCH (08:07)
[2020-06-29] MEDS: SENNA W/DOCUSATE (SENOKOT S) TABLET PO SCH ×2 (08:07→20:59)
[2020-06-29] MEDS: COLESTIPOL 1 GM (COLESTID) TAB PO SCH ×2 (08:07→20:59)
[2020-06-29] MEDS: DOCUSATE SODIUM 100 MG (COLACE) CAP PO SCH ×2 (08:07→20:58)
[2020-06-29] MEDS: ASPIRIN E.C. 81 MG (ECOTRIN) TAB PO SCH ×2 (08:07→20:49)
[2020-06-29] MEDS: PANTOPRAZOLE 20 MG TABLET (PROTONIX) PO SCH (08:07)
[2020-06-29] MEDS: FLUoxetine HCL 20 MG (PROzac) CAP PO SCH (08:07)
[2020-06-29] MEDS: CALCIUM CARBONATE 500 MG (TUMS) TAB.CHEW PO SCH (08:07)
[2020-06-29] MEDS: MULTIVIT W/MINERALS TAB (THERAGRAN M) PO SCH (08:07)
[2020-06-29] MEDS: CYANOCOBALAMIN 1,000 MCG (VITAMIN B-12) TABLET PO SCH (08:07)
[2020-06-29] MEDS: NAPROXEN 250 MG (NAPROSYN) TABLET PO SCH ×2 (08:08→20:49)
[2020-06-29] MEDS: LEVOTHYROXINE 75 MCG (LEVOTHROID) TABLET PO SCH (08:08)
[2020-06-29] MEDS: FOLIC ACID 1 MG TAB PO SCH (08:08)
[2020-06-29] MEDS: polyethylene glycoL POWDER 17 GM (MIRALAX) PACK PO SCH ×2 (08:08→20:50)
[2020-06-29] MEDS: LACTOBACILLUS ACIDOPHILUS (PROBIOTIC) CAPSULE PO SCH (08:08)
[2020-06-29] MEDS ORDERED: NON-FORMULARY MEDICATION 1 EA EA (Elderberry Fruit and Flower (Black Elderberry 575 mg Cap PO SCH (09:00)
--- NOTE | 2020-06-29 09:00 | Physical Therapy Daily Note ---
PT Daily Note-Current Subjective Patient in WC pre tx, agrees to PT, has 4/10 pain in right leg, has to get her bra on and brush her teeth which she does without assist. Appearance Patient in WC post tx with nurse call, phone, tray, polar care on. Mental Status Patient Orientation: Person, Place, Situation Attachments: Polar Pack Transfers SCALE: Activities may be completed with or without assistive devices. 9-Sllhicsyoa-krxszjp completes the activity by him/herself with no assistance from a helper. 5-Set-up or Clean-up Assistance-helper sets up or cleans up; patient completes activity. [place] assists only prior to or following the activity. 4-Supervision or Touching Assistance-helper provides verbal cues and/or touching/steadying and/or contact guard assistance as patient completes activity. Assistance may be provided throughout the activity or intermittently. 3-Partial/Moderate Assistance-helper does LESS THAN HALF the effort. [place] lifts, holds or supports trunk or limbs, but provides less than half the effort. 2-Substantial/Maximal Assistance-helper does MORE THAN HALF the effort. [place] lifts or holds trunk or limbs and provides more than half the effort. 8-Wjumqzqmt-xpueda does ALL the effort. Patient does none of the effort to complete the activity. Or, the assistance of 2 or more helpers is required for the patient to complete the activity. If activity was not attempted, code reason: 7-Patient Refused. 9-Not Applicable-not attempted and the patient did not perform the activity before the current illness, exacerbation or injury. 10-Not Attempted due to Environmental Limitations-(lack of equipment, weather restraints, etc.). 88-Not Attempted due to Medical Conditions or Safety Concerns. Roll Left & Right (QC): 6 Sit to Lying (QC): 6 Lying to Sitting/Side of Bed(Q: 6 Sit to Stand (QC): 6 Chair/Lcd-bm-Sbixd Xfer(QC): 6 Weight Bearing Right Lower Extremity: Right Touch Toe Bearing right knee immobilizer on with activity, she can have it off when in bed or in recliner with legs elevated Gait Training Distance: 60'x4 Walk 10 feet (QC): 4 Walk 50 ft with 2 Turns(QC): 4 Gait Persons Needed: 1 Gait Assistive Device: Parallel Bars (bilateral) SBA, compliant with TTWB on the right side Wheelchair Training Does the Pt Use a Wheelchair?: Yes Wheel 150 ft (QC): 6 Type of Wheelchair: Manual Exercises Supine Ex: Ankle pumps, Quad Set, Glut sets Supine Reps: 20 (right side) standing hip flexion on right side with extended knee x20, ankle pumps on right side, heel raises on left side and mini squats on left side, all x20 Treatments bed mobility and transfers, ambulation, LE ROM Assessment Current Status: Fair Progress improving general mobility PT Short Term Goals Short Term Goals Time Frame: Jul 05, 2020 Roll Left & Right: 6 Sit to lyin Lying to sitting on side of be: 6 Sit to stand: 6 Chair/zhe-sw-jtuwq transfer: 5 Walk 10 feet: 5 Walk 50 feet with two turns: 5 Walk 150 feet: 5 PT Assisted Goals Assisted Goals PT Assisted Goals Time Frame: Jul 19, 2020 Roll Left & Right (QC): 6 Sit to Lying (QC): 6 Lying-Sitting on Side/Bed(QC): 6 Sit to Stand (QC): 6 Chair/Ush-gd-Tnclf Xfer(QC): 6 Toilet Transfer (QC): 6 Car Transfer (QC): 6 Does the Patient Walk: Yes Walk 10 feet (QC): 6 Walk 50ft with 2 Turns (QC): 6 Walk 150 ft (QC): 6 Walking 10ft on Uneven Surface: 6 1 Step (curb) (QC): 6 4 Steps (QC): 3 12 Steps (QC): 88 Picking up an Object (QC): 88 Wheel 50 feet with 2 turns (QC: 9 Wheel 150 feet: 9 PT Plan Problem List Problem List: Activity Tolerance, Functional Strength, Safety, Balance, Gait, Transfer, Bed Mobility, ROM Treatment/Plan Treatment Plan: Continue Plan of Care Treatment Plan: Bed Mobility, Education, Functional Activity Zoë, Functional Strength, Group Therapy, Gait, Safety, Therapeutic Exercise, Transfers Treatment Duration: Jul 19, 2020 Frequency: At least 5 of 7 days/Wk (IRF) Estimated Hrs Per Day: 1.5 hours per day Patient and/or Family Agrees t: Yes Safety Risks/Education Patient Education: Gait Training, Transfer Techniques, Correct Positioning, Safety Issues Teaching Recipient: Patient Teaching Methods: Demonstration, Discussion Response to Teaching: Reinforcement Needed Time/GCodes Time In: 0800 Time Out: 0900 Total Billed Treatment Time: 60 Total Billed Treatment 1 visit GT 30' EX 30' LORI CHAMBERLAIN PT Jun 29, 2020 09:00
--- NOTE | 2020-06-29 10:24 | ST Cognitive Linguistic Eval ---
Speech Evaluation-General Medical Diagnosis ORIF R femur with IMN Onset Date: Jun 23, 2020 Therapy Diagnosis Therapy Diagnosis: Cognitive-communication Referral Referring Physician: Dr. Feng Medical History Pertinent Medical History: DM, HTN Reviewed History: Yes Social History Current Living Status: Alone Speech PLF-Current Status Prior Level of Function Patient lives in her home alone and was independent with her daily needs. 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 Subjective Patient was pleasant and cooperative with the cognitive assessment. Language Eval: Auditory Comprehends Simple Yes/No Ques: Functional Indent/Objects Multiple [place]: Functional Ident/Pics in Multiple [place]: Functional Follows 1-Step Commands: Functional Follows Complex Directions: Functional Follows General Conversations: Functional Language Eval: Verbal Language Completes Spontaneous Greeting: Functional Produces Auto, Serial Info: Functional Imitates Simple Words/Phrases: Functional Word Finding: Functional Requests Basic Needs: Functional States Basic Personal Info: Functional Expresses Complex Ideas: Functional Objective Cognitive Domain Attention: WNL Memory: WNL Problem Solving: Functional Executive Functions: WNL Visuospatial Skills: WNL Composite Severity Rating: WNL Clock Drawing Severity Rating: WNL Objective Formal/Standardized Tests [facility] Mental Status ([facility]) Results 29/30, within normal range of function Oral Motor/Speech Production Within Normal Limits Impression Patient is a pleasant 45 y/o female who was admitted to the ARU following a revision surgery of her right leg. Patient was given the SLUMS with a score of 29/30 obtained. Patient's score is within the normal range of function and does not indicate the need for further ST services at this time. Speech Patient Assess Expression of Ideas/Wants: Expression (4) Understanding Verbal Content: Understands (4) Brief Interview-Mental Status: Yes Repetition of Three Words: Three (3) Temporal Orientation: Year: Correct (3) Temporal Orientation: Month: Accurate within 5 days(2) Temporal Orientation: Day: Correct (1) Recall : Wear to say "Sock": Yes, no cue required (2) Recall : Color: Yes, no cue required (2) Recall : Bed: Yes, no cue required (2) Memory/Recall Ability: Current season, Location of own room, Staff names and faces, That he or she is in a hsp/hsp unit Speech-Plan Patient/Family Goals Patient/Family Goals: Patient plans on returning to her home where she lives alone. She will have family and episcopal support for her needs. Treatment Plan Speech Therapy Treatment Plan: Discontinue ST Treatment Duration: Jun 29, 2020 Frequency: 1 time per week Estimated Hrs Per Day: .5 hour per day Rehab Potential: Fair Barriers to Learning: None identified Pt/Family Agrees to Plan: Yes Safety Risks/Education Teaching Recipient: Patient Teaching Methods: Discussion Response to Teaching: Verbalize Understanding Education Topics Provided: Safety within her room and communication of wants/needs Time Speech Therapy Time In: 09:30 Speech Therapy Time Out: 10:00 Total Billed Time: 30 Billed Treatment Time 1, SPSNDCOMP SHRADDHA Marin Jun 29, 2020 10:24
--- NOTE | 2020-06-29 11:24 | PM&R Progress Note ---
Subjective HPI/CC On Admission Date Seen by Provider: Jun 29, 2020 Time Seen by Provider: 11:30 Subjective/Events-last exam 06/29/20: Wound vac management graciously accepted by Dr Sosa Midline will be placed for additional iron infusions Vit B12 maintained also Hgb stable at 8.6 Pain controlled Sugar low this am so will monitor that closely Objective Exam Vital Signs Vital Signs Date Time Temp Pulse Resp B/P (MAP) Pulse Ox O2 Delivery O2 Flow Rate FiO2 06/29/20 20:55 Room Air 06/29/20 18:00 36.6 81 18 128/58 (81) 96 Capillary Refill : Less Than 3 Seconds General Appearance: No Apparent Distress, WD/WN, Obese, Other (pale) HEENT: PERRL/EOMI, Normal ENT Inspection, Pharynx Normal Neck: Full Range of Motion, Normal Inspection, Non Tender, Supple, Carotid Bruit Respiratory: Chest Non Tender, Lungs Clear, Normal Breath Sounds, No Accessory Muscle Use, No Respiratory Distress Cardiovascular: Regular Rate, Rhythm, No Edema, No Gallop, No JVD, No Murmur, Normal Peripheral Pulses Gastrointestinal: Normal Bowel Sounds, No Organomegaly, No Pulsatile Mass, Non Tender, Soft Back: Normal Inspection, No CVA Tenderness, No Vertebral Tenderness Extremity: Normal Capillary Refill, Normal Inspection, Normal Range of Motion (except right leg), Non Tender, No Calf Tenderness, No Pedal Edema Neurologic/Psychiatric: Alert, Oriented x3, No Motor/Sensory Deficits, Normal Mood/Affect, Motor Weakness (right leg) Skin: Normal Color, Warm/Dry Lymphatic: No Adenopathy Results/Procedures Lab Patient resulted labs reviewed. FIM Transfers Therapy Code Descriptions/Definitions Functional [place] Measure: 0=Not Assessed/NA 4=Minimal Assistance 1=Total Assistance 5=Supervision or Setup 2=Maximal Assistance 6=Modified [place] 3=Moderate Assistance 7=Complete IndependenceSCALE: Activities may be completed with or without assistive devices. 0-Asfeyegplo-mlhxsbv completes the activity by him/herself with no assistance from a helper. 5-Set-up or Clean-up Assistance-helper sets up or cleans up; patient completes activity. [place] assists only prior to or following the activity. 4-Supervision or Touching Assistance-helper provides verbal cues and/or touching/steadying and/or contact guard assistance as patient completes activity. Assistance may be provided throughout the activity or intermittently. 3-Partial/Moderate Assistance-helper does LESS THAN HALF the effort. [place] lifts, holds or supports trunk or limbs, but provides less than half the effort. 2-Substantial/Maximal Assistance-helper does MORE THAN HALF the effort. [place] lifts or holds trunk or limbs and provides more than half the effort. 8-Kcpmtbkja-ocgsuh does ALL the effort. Patient does none of the effort to complete the activity. Or, the assistance of 2 or more helpers is required for the patient to complete the activity. If activity was not attempted, code reason: 7-Patient Refused. 9-Not Applicable-not attempted and the patient did not perform the activity before the current illness, exacerbation or injury. 10-Not Attempted due to Environmental Limitations-(lack of equipment, weather restraints, etc.). 88-Not Attempted due to Medical Conditions or Safety Concerns. Roll Left to Right (QC): 6 Sit to Lying (QC): 6 Sit to Stand (QC): 6 Chair/Phu-rc-Pbddp Xfer(QC): 6 Car Transfer (QC): 4 Gait Training Does the Patient Walk?: Yes Distance: 60'x4 Walk 10 feet (QC): 4 Walk 50 ft with 2 Turns(QC): 4 Walk 150 ft (QC): 88 Walking 10ft/uneven surface-QC: 4 Gait Persons Needed: 1 Gait Assistive Device: Parallel Bars (bilateral) Wheelchair Training Does the Pt Use a Wheelchair?: Yes Wheel 50 ft with 2 turns (QC): 9 Wheel 150 ft (QC): 6 Type of Wheelchair: Manual Stair Training 1 Step (curb) (QC): 88 4 Steps (QC): 88 12 Steps (QC): 88 Balance Picking up an Object (QC): 88 ADL-Treatment Eating (QC): 6 (Per pt report and clinical judgement) Oral Hygiene (QC): 7 Shower/Bathe Self (QC): 3 (Min A, pt able to wash UEs, chest/abdomen, periarea, buttocks, and LEs. Slight assistance washing R foot.) Upper Body Dressing (QC): 5 (set up assist, pt doffed/donned bra and chute puller shirt.) Lower Body Dressing (QC): 3 (Pt able to doff/don pants, assist with donning/doffing knee immobilizer due to difficulty reaching lower straps.) On/Off Footwear (QC): 3 (Pt able to doff bilateral gripper socks, don L sock. Pt able to thread R sock over toes but assist managing up.) Toileting Hygiene (QC): 4 (CGA, pt able to manage clothing and perform hygiene.) Assessment/Plan Assessment and Plan Assess & Plan/Chief Complaint Assessment: s/p right distal hip fracture bucky breakage s/p revision 06/23/[address] [facility] [address] [facility] with removal of deep implant and replacement Morbid obesity BMI 47 RAY on CPAP Night time hypoxia DM with variable sugars Post op anemia due to acute blood loss HTN GERD Plan: IRF protocol Pain control Monitor hgb Iron infusions? 06/29/20: Midline Venofer Dr Sosa for wound vac management and is appreciated Pain control Monitor hypoglycemia (1) History of revision of total replacement of right hip joint (2) Diabetes (3) Obesity, morbid, BMI 50 or higher (4) RAY on CPAP RAHUL BRIDGES DO Jun 29, 2020 11:24
--- NOTE | 2020-06-29 11:25 | Individualized Plan of Care ---
Individualized Plan of Care Rehab Nursing IPOC Order Admission Date Jun 28, 2020 at 15:06 Current Orders Orders Admission Order(Inpt,Obs,Sdc) (06/28/20 13:57) Vital Signs: Per Unit Policy ( ,16,00 (06/28/20 13:57) Bart Keita (06/28/20 13:57) Sequential Compression Device Q4H (06/28/20 13:57) Dance Historian-Inpt Rehab Con (06/28/20 13:57) Rehab Nursing Orders-Ipoc (06/28/20 13:57) Physical Therapy Rehab Orders (06/28/20 13:57) Occupational Therapy Rehab Ord (06/28/20 13:57) Speech Therapy Rehab Orders (06/28/20 13:57) Cbc With Automated Diff (06/29/20 06:00) Comprehensive Metabolic Panel (06/29/20 06:00) Intake & Output 06,14,22 (06/28/20 13:57) Precautions (Aru) (06/28/20 13:57) Weekly Weight WEEK (06/28/20 13:57) Rehab-Intensity Of Therapy (06/28/20 13:57) Initiate Admission Nursing Pro .admission (06/28/20 13:57) Alprazolam Tablet (Xanax Tablet) (06/28/20 14:00) Calcium Carbonate Chew Tablet (Antacid C (06/28/20 14:00) Diphenhydramine Tablet (Benadryl Tablet) (06/28/20 14:00) Docusate Sodium Capsule (Colace Capsule) (06/28/20 21:00) Docusate Sodium Capsule (Colace Capsule) (06/28/20 14:00) Bisacodyl Suppository (Dulcolax Supposit (06/28/20 14:00) Lactulose Oral Solution (Enulose Oral So (06/28/20 14:00) Na Phos/Na Biphos Enema (Fleet Enema [place] (06/28/20 14:00) Guaifenesin/Codeine Syrup (Robitussin Ac (06/28/20 14:00) Loperamide Tablet (Imodium Tablet) (06/28/20 14:00) Melatonin Tablet (Melatonin Tablet) (06/28/20 14:00) Polyethylene Glycol Powder Pkt (Miralax (06/28/20 21:00) Ondansetron Oral Dissolve Tab (Zofran (06/28/20 14:00) Senna S Tablet (Senokot S Tablet) (06/28/20 21:00) Code/Resuscitation (06/28/20 13:57) Initiate Admission Nursing Pro .admission (06/28/20 13:57) Accucheck Achs ACHS (06/28/20 14:07) Cho 60g/M 1snack (16-2000 [place]) (06/28/20 Lunch) Acetaminophen Tablet (Tylenol Tablet) (06/28/20 15:30) Aspirin Enteric Coated Tablet (Ecotrin T (06/28/20 21:00) Buspirone Tablet (Buspar Tablet) (06/28/20 15:30) Colestipol Tablet (Colestid Tablet) (06/28/20 21:00) Cyanocobalamin Injection (Vitamin B-12 I (06/28/20 15:30) Cyanocobalamin Tablet (Vitamin B-12 Tabl (06/29/20 09:00) Cyclobenzaprine Tablet (Flexeril Tablet) (06/28/20 15:30) Ergocalciferol Capsule (Vitamin D2 Capsu (06/28/20 15:30) Fluoxetine Capsule (Prozac Capsule) (06/29/20 09:00) Folic Acid Tablet (Folic Acid Tablet) (06/29/20 09:00) Glipizide Tablet (Glucotrol Tablet) (06/29/20 09:00) Hydromorphone Tablet (Dilaudid Tablet) (06/28/20 15:30) Levothyroxine Tablet (Synthroid Tablet) (06/29/20 09:00) Loratadine Tablet (Claritin Tablet) (06/28/20 21:00) Acetaminophen Tablet/Caplet (Tylenol T (06/28/20 18:00) Calcium Carbonate Chew Tablet (Antacid C (06/29/20 09:00) (Nf) Dulaglutide (Trulicity) (06/28/20 15:30) Insulin Determir (Per Unit) (Levemir (Pe (06/28/20 21:00) Lactobacillus Acidophilus Cap (Acidophil (06/29/20 09:00) Therapeutic Multivitamin Tab (Vitamins, (06/29/20 09:00) Naproxen Tablet (Naprosyn Tablet) (06/28/20 21:00) Cho 75g/M 0snack (21-2400 E[place]) (06/28/20 Dinner) Accucheck Achs ACHS (06/28/20 15:31) Insulin Aspart (Novolog) (Novolog (Charg (06/28/20 16:00) Patient Visit (06/28/20 ) Pt Eval Moderate Complexity (06/28/20 ) Functional Activities, Ea 15 (06/28/20 ) Glucerna (06/28/20 16:23) Pantoprazole Tablet (Protonix Tablet) (06/29/20 09:00) Iron Test (Fe) (06/29/20 05:28) Venous Access Request Order (06/29/20 10:57) Iron Sucrose Injection (Venofer Injectio (06/29/20 11:00) Consult General Surgery (06/29/20 11:46) Venous Access Request Order (06/29/20 11:48) Midline Cap Change Q3D (06/29/20 11:48) Midline Dressing Change Q7D (06/29/20 11:48) Ergocalciferol Capsule (Vitamin D2 Capsu (06/30/20 13:15) Cyanocobalamin Injection (Vitamin B-12 I (06/29/20 13:15) Patient Visit (06/29/20 ) Speech Sound Lang Comp (06/29/20 ) Patient Visit (06/29/20 ) Exercise Therap, Ea 15 Min (06/29/20 ) Gait Training, Ea 15 Min (06/29/20 ) Ex Neuromuscular, Ea 15 Min (06/29/20 ) Rehab Nursing Orders: Ongoing Assess. of Cognitive Status, Ongoing Assess. of Function Status, Bladder Management, Bladder Scan, Bladder Training, Bowel Management, Bowel Training, Disease Management & Educaiton, DVT Prophylaxis, Fall Prevention, Fluid/Electrolyte/Nutrition Mgmt, Infection Prevention, Medication Management & Education, Management of Risks & Complications, Management of Skin Intergrity, Nutrition Management, Pain Management, Patient/Family Support, Safety Management, Swallow Precautions, Weight Bearing Precaution, Wound Management Intensity of Therapy to be met Patient to be seen: Min.3h per day/5 of 7d PT IPOC Problem List: Activity Tolerance, Functional Strength, Safety, Balance, Gait, Transfer, Bed Mobility, ROM Treatment Plan: Continue Plan of Care Bed Mobility, Education, Functional Activity Zoë, Functional Strength, Group Therapy, Gait, Safety, Therapeutic Exercise, Transfers Treatment Duration: Jul 19, 2020 Frequency: At least 5 of 7 days/Wk (IRF) Estimated Hrs Per Day: 1.5 hours per day OT IPOC Problems: Decreased Activ Tolerance, Decreased UE Strength, Impaired Funct Balance, Impaired I ADL's, Impaired Self-Care Skills OT Treatment, Training and Edu: Yes Plan of Care: ADL Retraining, Functional Mobility, Group Exercise/Act as Ind, UE Funct Exercise/Act Treatment Duration: Jul 14, 2020 Frequency: At least 5 of 7 days/Wk (IRF) Estimated Hrs Per Day: 1.[address] IPOC Speech Therapy Treatment Plan: Discontinue ST Treatment Duration: Jun 29, 2020 Frequency: 1 time per week Estimated Hrs Per Day: .5 hour per day Dance Historian/Case Mgmt Dance Historian/Case Managemen: Discharge Planning Dietitian/Automatic Screwmaker Dietitian/Automatic Screwmaker to monitor nutritional status and make changes and/or recommendations as needed and work with speech pathology on dietary upgrades as the occur. Physician IPOC Medical Issues being managed closely and that require the 24 hour availability of a physician: Recent complex revision of right leg with severe acute blood loss anemia and labile sugars and severe pain will need close monitoring for decompensation Medical Issues: Bowel/Bladder Function, DVT Prophylaxis, Falls Precautions, Fl uid/Electrolyte/Nutrition Balance, Infection Protection, Pain Management, Weight Bearing Precautions, Wound Care Brief Synthesis of Preadmission Screen, Post-Admission Evaluation, and Therapy Evaluations: PT OT will work on regaining ADL's while in weight bearing restrictions and monitor needs for assistive devices Medical Prognosis: Good Anticipated Length of Stay: 14 days RAHUL BRIDGES DO Jun 29, 2020 11:25
--- NOTE | 2020-06-29 12:55 | Occupational Ther Daily Note ---
OT Current Status-Daily Note Subjective Pt alert, sitting in w/c. Pt agrees to therapy. Pt c/o pain, rated 7/10, nrsg brought pain meds. Mental Status/Objective Patient Orientation: Person, Place, Time, Situation Attachments: Drains (wound vac), Other-See Comments (knee immobilizer) ADL-Treatment Pt completed sponge bath today. Independent with transfer from w/c to toilet using grabbars. Independent with hygiene and clothing manipulation using grabbars. Pt sat at sink to complete oral care independently. Pt bathed upper body and B LE sitting in w/c, independently. SBA while pt stood to cleanse stephan area and buttocks. Independent with upper body dressing. Pt threaded wound vac tubing through pants and threaded over feet independently then SBA while pt stood to hike pants over hips. Independent with donning/doffing L sock, doffing R sock independently and min A donning R sock. Pt doffed brace independently then required assist to position and hook bottom straps. Therapy Code Descriptions/Definitions Functional [place] Measure: 0=Not Assessed/NA 4=Minimal Assistance 1=Total Assistance 5=Supervision or Setup 2=Maximal Assistance 6=Modified [place] 3=Moderate Assistance 7=Complete IndependenceSCALE: Activities may be completed with or without assistive devices. 7-Qxpewpyzzx-gqkckfa completes the activity by him/herself with no assistance from a helper. 5-Set-up or Clean-up Assistance-helper sets up or cleans up; patient completes activity. [place] assists only prior to or following the activity. 4-Supervision or Touching Assistance-helper provides verbal cues and/or touching/steadying and/or contact guard assistance as patient completes activity. Assistance may be provided throughout the activity or intermittently. 3-Partial/Moderate Assistance-helper does LESS THAN HALF the effort. [place] lifts, holds or supports trunk or limbs, but provides less than half the effort. 2-Substantial/Maximal Assistance-helper does MORE THAN HALF the effort. [place] lifts or holds trunk or limbs and provides more than half the effort. 0-Srcsxuyof-xeerzd does ALL the effort. Patient does none of the effort to complete the activity. Or, the assistance of 2 or more helpers is required for the patient to complete the activity. If activity was not attempted, code reason: 7-Patient Refused. 9-Not Applicable-not attempted and the patient did not perform the activity before the current illness, exacerbation or injury. 10-Not Attempted due to Environmental Limitations-(lack of equipment, weather restraints, etc.). 88-Not Attempted due to Medical Conditions or Safety Concerns. Oral Hygiene (QC): 6 Shower/Bathe Self (QC): 4 Upper Body Dressing (QC): 6 Lower Body Dressing (QC): 4 On/Off Footwear: 3 Toileting Hygiene (QC): 6 Toilet Transfer (QC): 6 Other Treatment Co-treat with PT ([id number]), skilled care and instruction requiring 2 clinicians due to pt's fatigue and higher level balance challenges. PT focusing on standing balance and ambulation while OT focusing on functional dynamic balance and B UE strengthening. Pt able to manipulate objects and toss at designated area with B UE while maintaining WB precautions in standing. After session, pt sitting in w/c with call light/phone in reach. All needs met in room. OT Short Term Goals Short Term Goals Time Frame: Jul 05, 2020 Oral hygiene: 5 Toileting hygiene: 5 Shower/bathe self: 5 Lower body dressin OT Long-Term Goals Machine Technician Goals Time Frame: Jul 14, 2020 Eating (QC): 6 Oral Hygiene (QC): 6 Toileting Hygiene (QC): 6 Shower/Bathe Self (QC): 6 Upper Body Dressing (QC): 6 Lower Body Dressing (QC): 6 On/Off Footwear (QC): 6 Additional Goals: 1-Demonstrate ADL Tasks, 2-Verbalize Understanding, 3-ImproveStrength/Zo[place] 1=Demonstrate adherence to instructed precautions during ADL tasks. 2=Patient will verbalize/demonstrate understanding of assistive devices/modifications for ADL. 3=Patient will improve strength/tolerance for activity to enable patient to perform ADL's. OT Education/Plan Problem List/Assessment Assessment: Decreased Activ Tolerance, Decreased UE Strength, Impaired Funct Balance, Impaired Self-Care Skills Discharge Recommendations Plan/Recommendations: Continue POC Treatment Plan/Plan of Care Patient would benefit from OT for education, treatment and training to promote independence in ADL's, mobility, safety and/or upper extremity function for ADL's. Plan of Care: ADL Retraining, Functional Mobility, Group Exercise/Act as Ind, UE Funct Exercise/Act Treatment Duration: Jul 14, 2020 Frequency: At least 5 of 7 days/Wk (IRF) Estimated Hrs Per Day: 1.5 hours per day Agreement: Yes Rehab Potential: Fair Time/GCodes Start Time: 11:00 Stop Time: 12:00 Total Time Billed (hr/min): 60 Billed Treatment Time 1 visit-ADL 3 (45 min) FA 1 (15 min) co-treat with PT [id number], individual [id number] AGUILAR MAYFIELD Jun 29, 2020 12:55
[2020-06-29] MEDS ORDERED: CYANOCOBALAMIN INJ 1000 MCG/ML IM SCH (13:15)
[2020-06-29] MEDS: CYCLOBENZAPRINE 10 MG (FLEXERIL) TAB PO PRN (13:39)
--- NOTE | 2020-06-29 13:46 | Occupational Ther Daily Note ---
OT Current Status-Daily Note Subjective Pt alert, sitting in w/c. Pt agrees to therapy. No c/o pain at this time. Mental Status/Objective Patient Orientation: Person, Place, Time, Situation Attachments: Drains (wound vac) ADL-Treatment Therapy Code Descriptions/Definitions Functional [place] Measure: 0=Not Assessed/NA 4=Minimal Assistance 1=Total Assistance 5=Supervision or Setup 2=Maximal Assistance 6=Modified [place] 3=Moderate Assistance 7=Complete IndependenceSCALE: Activities may be completed with or without assistive devices. 7-Whumfloool-qrpdpts completes the activity by him/herself with no assistance from a helper. 5-Set-up or Clean-up Assistance-helper sets up or cleans up; patient completes activity. [place] assists only prior to or following the activity. 4-Supervision or Touching Assistance-helper provides verbal cues and/or touching/steadying and/or contact guard assistance as patient completes activity. Assistance may be provided throughout the activity or intermittently. 3-Partial/Moderate Assistance-helper does LESS THAN HALF the effort. [place] lifts, holds or supports trunk or limbs, but provides less than half the effort. 2-Substantial/Maximal Assistance-helper does MORE THAN HALF the effort. [place] lifts or holds trunk or limbs and provides more than half the effort. 7-Evakpmcsr-shnvxy does ALL the effort. Patient does none of the effort to complete the activity. Or, the assistance of 2 or more helpers is required for the patient to complete the activity. If activity was not attempted, code reason: 7-Patient Refused. 9-Not Applicable-not attempted and the patient did not perform the activity before the current illness, exacerbation or injury. 10-Not Attempted due to Environmental Limitations-(lack of equipment, weather restraints, etc.). 88-Not Attempted due to Medical Conditions or Safety Concerns. Toileting Hygiene (QC): 6 Toilet Transfer (QC): 6 Other Treatment Pt able to proficiently propel w/c around ARU and into therapy gym. Pt completed B UE arm bike to increase strength and activity tolerance for daily functional tasks, 12 min at 20 bravo resistance. After session, pt lying in bed with call light/phone in reach. All needs met in room. OT Short Term Goals Short Term Goals Time Frame: Jul 05, 2020 Oral hygiene: 5 Toileting hygiene: 5 Shower/bathe self: 5 Lower body dressin OT Electronic Controls Repairer Supervisor Goals Skilled Nursing Goals Time Frame: Jul 14, 2020 Eating (QC): 6 Oral Hygiene (QC): 6 Toileting Hygiene (QC): 6 Shower/Bathe Self (QC): 6 Upper Body Dressing (QC): 6 Lower Body Dressing (QC): 6 On/Off Footwear (QC): 6 Additional Goals: 1-Demonstrate ADL Tasks, 2-Verbalize Understanding, 3- ImproveStrength/Zo[place] 1=Demonstrate adherence to instructed precautions during ADL tasks. 2=Patient will verbalize/demonstrate understanding of assistive dev ices/modifications for ADL. 3=Patient will improve strength/tolerance for activity to enable patient to perform ADL's. OT Education/Plan Problem List/Assessment Assessment: Decreased Activ Tolerance, Decreased UE Strength Discharge Recommendations Plan/Recommendations: Continue POC Treatment Plan/Plan of Care Patient would benefit from OT for education, treatment and training to promote independence in ADL's, mobility, safety and/or upper extremity function for ADL's. Plan of Care: ADL Retraining, Functional Mobility, Group Exercise/Act as Ind, UE Funct Exercise/Act Treatment Duration: Jul 14, 2020 Frequency: At least 5 of 7 days/Wk (IRF) Estimated Hrs Per Day: 1.5 hours per day Agreement: Yes Rehab Potential: Fair Time/GCodes Start Time: 13:00 Stop Time: 13:30 Total Time Billed (hr/min): 30 Billed Treatment Time 1 visit-FA 1 (15 min) EX 1 (15 min) AGUILAR MAYFIELD Jun 29, 2020 13:46
--- NOTE | 2020-06-29 13:58 | Physical Therapy Daily Note ---
PT Daily Note-Current Subjective Patient in WC pre tx, agrees to PT, has unrated pain in right leg, will be co- treating with OT for more advance balance activities, and due to poor patient endurance, strength, coordinate UE and LE during activity, safety and reduce risk of falls. Appearance Patient in WC post tx with nurse call, phone, tray, polar care on. Mental Status Patient Orientation: Normal For Age Attachments: Polar Pack right leg brace Transfers SCALE: Activities may be completed with or without assistive devices. 6-Pyophwtidi-totoljs completes the activity by him/herself with no assistance from a helper. 5-Set-up or Clean-up Assistance-helper sets up or cleans up; patient completes activity. [place] assists only prior to or following the activity. 4-Supervision or Touching Assistance-helper provides verbal cues and/or touching/steadying and/or contact guard assistance as patient completes activity. Assistance may be provided throughout the activity or intermittently. 3-Partial/Moderate Assistance-helper does LESS THAN HALF the effort. [place] lifts, holds or supports trunk or limbs, but provides less than half the effort. 2-Substantial/Maximal Assistance-helper does MORE THAN HALF the effort. [place] lifts or holds trunk or limbs and provides more than half the effort. 6-[place]-mceuhz does ALL the effort. Patient does none of the effort to complete the activity. Or, the assistance of 2 or more helpers is required for the patient to complete the activity. If activity was not attempted, code reason: 7-Patient Refused. 9-Not Applicable-not attempted and the patient did not perform the activity before the current illness, exacerbation or injury. 10-Not Attempted due to Environmental Limitations-(lack of equipment, weather restraints, etc.). 88-Not Attempted due to Medical Conditions or Safety Concerns. Sit to Stand (QC): 6 Chair/Rhd-bx-Wtpoh Xfer(QC): 6 Weight Bearing Right Lower Extremity: Right Touch Toe Bearing right knee immobilizer on with activity, she can have it off when in bed or in recliner with legs elevated Gait Training Distance: 120'x2 Walk 10 feet (QC): 4 Walk 50 ft with 2 Turns(QC): 4 Gait Assistive Device: Walker Platform (bilateral) SBA, compliant with TTWB Exercises standing balance activities throwing rings and torres bags. Treatments PT worked on transfers, ambulation, standing balance, OT worked on balance activity, assist with UE positioning and safety during activity. Assessment Current Status: Fair Progress improving general mobility PT Short Term Goals Short Term Goals Time Frame: Jul 05, 2020 Roll Left & Right: 6 Sit to lyin Lying to sitting on side of be: 6 Sit to stand: 6 Chair/qhi-zl-fljol transfer: 5 Walk 10 feet: 5 Walk 50 feet with two turns: 5 Walk 150 feet: 5 PT Nut Feeder Goals Nut Feeder Goals PT Nut Feeder Goals Time Frame: Jul 19, 2020 Roll Left & Right (QC): 6 Sit to Lying (QC): 6 Lying-Sitting on Side/Bed(QC): 6 Sit to Stand (QC): 6 Chair/Qdd-ti-Kumpo Xfer(QC): 6 Toilet Transfer (QC): 6 Car Transfer (QC): 6 Does the Patient Walk: Yes Walk 10 feet (QC): 6 Walk 50ft with 2 Turns (QC): 6 Walk 150 ft (QC): 6 Walking 10ft on Uneven Surface: 6 1 Step (curb) (QC): 6 4 Steps (QC): 3 12 Steps (QC): 88 Picking up an Object (QC): 88 Wheel 50 feet with 2 turns (QC: 9 Wheel 150 feet: 9 PT Plan Problem List Problem List: Activity Tolerance, Functional Strength, Safety, Balance, Gait, Transfer Treatment/Plan Treatment Plan: Continue Plan of Care Treatment Plan: Bed Mobility, Education, Functional Activity Zoë, Functional Strength, Group Therapy, Gait, Safety, Therapeutic Exercise, Transfers Treatment Duration: Jul 19, 2020 Frequency: At least 5 of 7 days/Wk (IRF) Estimated Hrs Per Day: 1.5 hours per day Patient and/or Family Agrees t: Yes Safety Risks/Education Patient Education: Gait Training, Transfer Techniques, Correct Positioning, Safety Issues Teaching Recipient: Patient Teaching Methods: Demonstration, Discussion Response to Teaching: Reinforcement Needed Time/GCodes Time In: 1130 Time Out: 1200 Total Billed Treatment Time: 30 Total Billed Treatment 1 visit NM 15' GT 15' co-treated with OT for 30' LORI CHAMBERLAIN PT Jun 29, 2020 13:58
[2020-06-29] MEDS: IRON SUCROSE 200 MG/10 ML (VENOFER) VIAL IV SCH (15:32)
--- NOTE | 2020-06-29 17:01 | CONSULTATION REPORT ---
DATE OF SERVICE: 06/29/2020 ATTENDING PRIMARY SEATER GRINDER: [facility]. ADMITTING PHYSICIAN: Yarelis Feng DO HISTORY OF PRESENT ILLNESS: The patient is a 45-year-old female who was transferred to inpatient rehabilitation from [facility] post open reduction and internal fixation of the right femur. She reports in 11/2019, she fell and suffered a comminuted distal femur fracture and underwent an open reduction and internal fixation with an intramedullary bucky as well as bone graft. She also had a unilateral right hip fracture and underwent a prosthesis placement. Her most recent surgery was revisional surgery done on 06/23/2020. Since her surgery, she has had a significant amount of serosanguineous oozing coming from the wound; however, she does have a higher body mass index with significant amount of adipose tissue. She does have a Prevena VAC placed, which appears intact with no surrounding redness or erythema. PAST MEDICAL HISTORY: Diabetes, obesity, Juanita's thyroiditis, degenerative joint disease. PAST SURGICAL HISTORY: Laparoscopic cholecystectomy, ORIF with revision of the right femur, right ankle surgery. ALLERGIES: TRAMADOL, HYDROCODONE, OXYCODONE. MEDICATIONS: Colestipol, loratadine, omeprazole, acetaminophen, diphenhydramine, dulaglutide, fluoxetine, glipizide, insulin, levothyroxine, meloxicam. SOCIAL HISTORY: Negative smoke, negative alcohol. FAMILY HISTORY: Father, testicular cancer. Mother, renal cell cancer. VITAL SIGNS: Temperature 36.1, blood pressure 109/45, pulse 84, respirations 16, pulse ox 98% on room air. REVIEW OF SYSTEMS: Well-nourished female, currently in no acute distress. She is not experiencing any shortness of breath or difficulty breathing. No chest pain, palpitations, diaphoresis. No nausea, vomiting. No diarrhea or constipation. No fever, chills. No recent inadvertent weight loss. All other review of systems negative. PHYSICAL EXAMINATION: CHEST: Diffuse scattered rales bilaterally. HEART: Regular, no murmurs. EXTREMITIES: +1/3 bilateral lower extremity edema, negative Homans sign with long Prevena wound VAC to pull moisture and edema from the wound. There were no signs of infection at this time. HEENT: No scleral icterus. NECK: No cervical lymphadenopathy. ABDOMEN: Soft, nontender, nondistended. SKIN: Warm, dry. LABORATORY DATA: WBC 6.1, hemoglobin 8.6, hematocrit 26, platelets 145. BUN 7, creatinine 0.60. ASSESSMENT AND PLAN: A 45-year-old female with comminuted fracture of the right femur as well as the femoral head, status post open reduction and internal fixation with intramedullary bucky placement and recent revisional surgery. She will require a significant rehabilitation to reach her goals of activities of daily living and will require inpatient rehabilitation. The Prevena wound VAC is more for keeping the wound dry and for evacuating any serosanguineous drainage or seroma formation and decreased edema to prevent the risk of infection and at this time, there does not appear to be any infection and does not require any antibiotics. These wound VACs do not need to be changed only every 2 weeks. She may proceed with all of her normal physical and occupational therapy requirements and diet as tolerated as well. Job ID: [id number] DocumentID: [id number] Dictated Date: 06/29/2020 16:17:50 Store Grocery Merchandiser Date: 06/29/2020 17:00:04 Dictated By: LOURDES RODRIGUEZ MD MTDD
[2020-06-29 18:00] VITALS: BP 128/58
[2020-06-29] MEDS: LORATADINE (CLARITIN) 10 MG TAB PO SCH (20:49)
[2020-06-30] MEDS: ACETAMINOPHEN 500 MG TAB (TYLENOL) PO SCH ×4 (00:08→23:44)
[2020-06-30] MEDS: CYCLOBENZAPRINE 10 MG (FLEXERIL) TAB PO PRN ×2 (00:09→22:03)
[2020-06-30] MEDS: HYDROmorphone (DILAUDID) 2 MG TAB PO PRN ×5 (02:05→22:04)
[2020-06-30 05:43] VITALS: BP 108/71
[2020-06-30] MEDS: inSUlin ASPART (NovoLOG) 1 UNIT/0.01 ML (CHARGE PER UNIT) SC SCH ×4 (06:20→21:10)
[2020-06-30] MEDS: LEVOTHYROXINE 75 MCG (LEVOTHROID) TABLET PO SCH (08:51)
[2020-06-30] MEDS: PANTOPRAZOLE 20 MG TABLET (PROTONIX) PO SCH (08:51)
[2020-06-30] MEDS: ASPIRIN E.C. 81 MG (ECOTRIN) TAB PO SCH ×2 (08:51→21:55)
[2020-06-30] MEDS: FLUoxetine HCL 20 MG (PROzac) CAP PO SCH (08:51)
[2020-06-30] MEDS: glipiZIDE 5 MG (GLUCOTROL) TAB PO SCH (08:51)
[2020-06-30] MEDS: MULTIVIT W/MINERALS TAB (THERAGRAN M) PO SCH (08:51)
[2020-06-30] MEDS: FOLIC ACID 1 MG TAB PO SCH (08:51)
[2020-06-30] MEDS: NAPROXEN 250 MG (NAPROSYN) TABLET PO SCH ×2 (08:51→21:55)
[2020-06-30] MEDS: CYANOCOBALAMIN 1,000 MCG (VITAMIN B-12) TABLET PO SCH (08:51)
[2020-06-30] MEDS: LACTOBACILLUS ACIDOPHILUS (PROBIOTIC) CAPSULE PO SCH (08:52)
[2020-06-30] MEDS: CALCIUM CARBONATE 500 MG (TUMS) TAB.CHEW PO SCH (08:52)
[2020-06-30] MEDS: polyethylene glycoL POWDER 17 GM (MIRALAX) PACK PO SCH ×2 (08:56→21:55)
--- NOTE | 2020-06-30 08:56 | Physical Therapy Daily Note ---
PT Daily Note-Current Subjective Patient in WC pre tx, agrees to PT, has unrated pain in right leg. Appearance Patient in WC post tx with nurse call, phone, tray, [facility] care on. Mental Status Patient Orientation: Normal For Age right leg brace Transfers SCALE: Activities may be completed with or without assistive devices. 1-Xmwbxjuuge-yliphca completes the activity by him/herself with no assistance from a helper. 5-Set-up or Clean-up Assistance-helper sets up or cleans up; patient completes activity. [place] assists only prior to or following the activity. 4-Supervision or Touching Assistance-helper provides verbal cues and/or touch ing/steadying and/or contact guard assistance as patient completes activity. Assistance may be provided throughout the activity or intermittently. 3-Partial/Moderate Assistance-helper does LESS THAN HALF the effort. [place] lifts, holds or supports trunk or limbs, but provides less than half the effort. 2-Substantial/Maximal Assistance-helper does MORE THAN HALF the effort. [place] lifts or holds trunk or limbs and provides more than half the effort. 8-Ndhhcyvgg-vhnbqo does ALL the effort. Patient does none of the effort to complete the activity. Or, the assistance of 2 or more helpers is required for the patient to complete the activity. If activity was not attempted, code reason: 7-Patient Refused. 9-Not Applicable-not attempted and the patient did not perform the activity before the current illness, exacerbation or injury. 10-Not Attempted due to Environmental Limitations-(lack of equipment, weather restraints, etc.). 88-Not Attempted due to Medical Conditions or Safety Concerns. Sit to Stand (QC): 4 Chair/Ntl-hl-Oybdy Xfer(QC): 4 SBA Weight Bearing Right Lower Extremity: Right Touch Toe Bearing right knee immobilizer on with activity, she can have it off when in bed or in recliner with legs elevated Gait Training Distance: 120', 150' Walk 10 feet (QC): 4 Walk 50 ft with 2 Turns(QC): 4 Walk 150 ft (QC): 4 Gait Persons Needed: 1 Gait Assistive Device: Walker Platform (bilateral) Patient SBA with ambulation, needed one standing rest break during the 150' back to her room. Exercises Standing: Heel/toe raises (only used left leg), Mini squats (only used left leg) right side straight leg standing flexion and extension in parallel bars x20 NuStep Minutes: 15 NuStep Workload: 4 (right leg not used) Treatments transfers, ambulation, LE exercise Assessment Current Status: Fair Progress improving endurance but needs frequent rest breaks due to SOB and fatigue PT Short Term Goals Short Term Goals Time Frame: Jul 05, 2020 Roll Left & Right: 6 Sit to lyin Lying to sitting on side of be: 6 Sit to stand: 6 Chair/rky-bl-siljk transfer: 5 Walk 10 feet: 5 Walk 50 feet with two turns: 5 Walk 150 feet: 5 PT Half-Way Goals Half-Way Goals PT Derrick Barge Operator Goals Time Frame: Jul 19, 2020 Roll Left & Right (QC): 6 Sit to Lying (QC): 6 Lying-Sitting on Side/Bed(QC): 6 Sit to Stand (QC): 6 Chair/Ivu-vq-Cerrp Xfer(QC): 6 Toilet Transfer (QC): 6 Car Transfer (QC): 6 Does the Patient Walk: Yes Walk 10 feet (QC): 6 Walk 50ft with 2 Turns (QC): 6 Walk 150 ft (QC): 6 Walking 10ft on Uneven Surface: 6 1 Step (curb) (QC): 6 4 Steps (QC): 3 12 Steps (QC): 88 Picking up an Object (QC): 88 Wheel 50 feet with 2 turns (QC: 9 Wheel 150 feet: 9 PT Plan Problem List Problem List: Activity Tolerance, Functional Strength, Safety, Balance, Gait, Transfer, Bed Mobility, ROM Treatment/Plan Treatment Plan: Continue Plan of Care Treatment Plan: Bed Mobility, Education, Functional Activity Zoë, Functional Strength, Group Therapy, Gait, Safety, Therapeutic Exercise, Transfers Treatment Duration: Jul 19, 2020 Frequency: At least 5 of 7 days/Wk (IRF) Estimated Hrs Per Day: 1.5 hours per day Patient and/or Family Agrees t: Yes Safety Risks/Education Patient Education: Gait Training, Transfer Techniques, Reviewed Precautions, Correct Positioning, Safety Issues Teaching Recipient: Patient Teaching Methods: Demonstration, Discussion Response to Teaching: Reinforcement Needed Time/GCodes Time In: 0800 Time Out: 0900 Total Billed Treatment Time: 60 Total Billed Treatment 1 visit EX 30' FA 30' LORI CHAMBERLAIN PT Jun 30, 2020 08:56
[2020-06-30] MEDS: DOCUSATE SODIUM 100 MG (COLACE) CAP PO SCH ×2 (08:59→21:55)
[2020-06-30] MEDS: SENNA W/DOCUSATE (SENOKOT S) TABLET PO SCH ×2 (08:59→21:55)
[2020-06-30] MEDS: COLESTIPOL 1 GM (COLESTID) TAB PO SCH ×2 (08:59→21:55)
--- NOTE | 2020-06-30 09:47 | PM&R Progress Note ---
Subjective HPI/CC On Admission Date Seen by Provider: Jun 30, 2020 Time Seen by Provider: 09:45 Subjective/Events-last exam 06/30/20: Decreasing Levemir and OHA Hypoglycemia noted Accuchecks prn ordered Monitoring closely Wound vac changed to ours and doing well 06/29/20: Wound vac management graciously accepted by Dr Sosa Midline will be placed for additional iron infusions Vit B12 maintained also Hgb stable at 8.6 Pain controlled Sugar low this am so will monitor that closely Review of Systems Musculoskeletal: leg pain Objective Exam Vital Signs Vital Signs Date Time Temp Pulse Resp B/P (MAP) Pulse Ox O2 Delivery O2 Flow Rate FiO2 07/01/20 05:12 36.2 78 20 114/59 (77) 97 Room Air Capillary Refill : Less Than 3 Seconds General Appearance: No Apparent Distress, WD/WN, Obese, Other (pale) HEENT: PERRL/EOMI, Normal ENT Inspection, Pharynx Normal Neck: Full Range of Motion, Normal Inspection, Non Tender, Supple, Carotid Bruit Respiratory: Chest Non Tender, Lungs Clear, Normal Breath Sounds, No Accessory Muscle Use, No Respiratory Distress Cardiovascular: Regular Rate, Rhythm, No Edema, No Gallop, No JVD, No Murmur, Normal Peripheral Pulses Gastrointestinal: Normal Bowel Sounds, No Organomegaly, No Pulsatile Mass, Non Tender, Soft Back: Normal Inspection, No CVA Tenderness, No Vertebral Tenderness Extremity: Normal Capillary Refill, Normal Inspection, Normal Range of Motion (except right leg), Non Tender, No Calf Tenderness, No Pedal Edema Neurologic/Psychiatric: Alert, Oriented x3, No Motor/Sensory Deficits, Normal Mood/Affect, Motor Weakness (right leg) Skin: Normal Color, Warm/Dry Lymphatic: No Adenopathy Results/Procedures Lab Patient resulted labs reviewed. FIM Transfers Therapy Code Descriptions/Definitions Functional [place] Measure: 0=Not Assessed/NA 4=Minimal Assistance 1=Total Assistance 5=Supervision or Setup 2=Maximal Assistance 6=Modified [place] 3=Moderate Assistance 7=Complete IndependenceSCALE: Activities may be completed with or without assistive devices. 9-Ygsklacwvx-ndiovqa completes the activity by him/herself with no assistance from a helper. 5-Set-up or Clean-up Assistance-helper sets up or cleans up; patient completes activity. [place] assists only prior to or following the activity. 4-Supervision or Touching Assistance-helper provides verbal cues and/or touching/steadying and/or contact guard assistance as patient completes activity. Assistance may be provided throughout the activity or intermittently. 3-Partial/Moderate Assistance-helper does LESS THAN HALF the effort. [place] lifts, holds or supports trunk or limbs, but provides less than half the effort. 2-Substantial/Maximal Assistance-helper does MORE THAN HALF the effort. [place] lifts or holds trunk or limbs and provides more than half the effort. 8-Kwwcadbys-jlhtex does ALL the effort. Patient does none of the effort to c omplete the activity. Or, the assistance of 2 or more helpers is required for the patient to complete the activity. If activity was not attempted, code reason: 7-Patient Refused. 9-Not Applicable-not attempted and the patient did not perform the activity before the current illness, exacerbation or injury. 10-Not Attempted due to Environmental Limitations-(lack of equipment, weather restraints, etc.). 88-Not Attempted due to Medical Conditions or Safety Concerns. Roll Left to Right (QC): 6 Sit to Lying (QC): 6 Sit to Stand (QC): 4 Chair/Ebe-vr-Wspqp Xfer(QC): 4 Car Transfer (QC): 4 Gait Training Does the Patient Walk?: Yes Distance: 120', 150' Walk 10 feet (QC): 4 Walk 50 ft with 2 Turns(QC): 4 Walk 150 ft (QC): 4 Walking 10ft/uneven surface-QC: 4 Gait Persons Needed: 1 Gait Assistive Device: Walker Platform (bilateral) Wheelchair Training Does the Pt Use a Wheelchair?: Yes Wheel 50 ft with 2 turns (QC): 9 Wheel 150 ft (QC): 6 Type of Wheelchair: Manual Stair Training 1 Step (curb) (QC): 88 4 Steps (QC): 88 12 Steps (QC): 88 Balance Picking up an Object (QC): 88 ADL-Treatment Eating (QC): 6 (Per pt report and clinical judgement) Oral Hygiene (QC): 6 Shower/Bathe Self (QC): 4 Upper Body Dressing (QC): 6 Lower Body Dressing (QC): 4 On/Off Footwear (QC): 3 Toileting Hygiene (QC): 6 Toilet Transfer (QC): 6 Assessment/Plan Assessment and Plan Assess & Plan/Chief Complaint Assessment: s/p right distal hip fracture bucky breakage s/p revision 06/23/20 at [facility] with removal of deep implant and replacement Morbid obesity BMI 47 RAY on CPAP Night time hypoxia DM with variable sugars Post op anemia due to acute blood loss HTN GERD Plan: IRF protocol Pain control Monitor hgb Iron infusions? 06/29/20: Midline Venofer Dr Sosa for wound vac management and is appreciated Pain control Monitor hypoglycemia 06/30/20: Decrease insulin and OHA Monitor pain Fall risk Wound vac (1) History of revision of total replacement of right hip joint (2) Diabetes (3) Obesity, morbid, BMI 50 or higher (4) RAY on CPAP RAHUL BRIDGES DO Jun 30, 2020 09:47
--- NOTE | 2020-06-30 10:58 | Progress Note ---
Subjective Date Seen by a Provider: Jun 30, 2020 Time Seen by a Provider: 10:30 Subjective/Events-last exam doing well. pain controlled. tolerating PT. tolerating diet and having BM's. Objective Exam Vital Signs Date Time Temp Pulse Resp B/P (MAP) Pulse Ox O2 Delivery O2 Flow Rate FiO2 06/30/20 09:43 Room Air 06/30/20 05:43 36.2 70 16 108/71 (83) 93 Room Air 06/29/20 20:55 Room Air 06/29/20 18:00 36.6 81 18 128/58 (81) 96 Room Air I & O 06/30/20 06:59 Intake Total 1190 ml Balance 1190 ml Capillary Refill : Less Than 3 Seconds General Appearance: No Apparent Distress HEENT: PERRL/EOMI Neck: Full Range of Motion Respiratory: Chest Non Tender, Lungs Clear, Normal Breath Sounds Cardiovascular: Regular Rate, Rhythm Gastrointestinal: normal bowel sounds, non tender, soft Extremity: Normal Capillary Refill Neurologic/Psychiatric: Alert, Oriented x3 Skin: Normal Color Lymphatic: No Adenopathy Results Lab Laboratory Tests 06/29/20 14:42: Glucometer 66L 06/29/20 20:16: Glucometer 111H 06/30/20 05:49: Glucometer 114H 06/30/20 10:01: Glucometer 121H Assessment/Plan Assessment/Plan Assess & Plan/Chief Complaint s/p right femur ORIF with revision and large lateral LE closed wound with provena wound vac. cont all currrent therpies. will consult wound care for provena wound vac change at appropriate time. LOURDES RODRIGUEZ MD Jun 30, 2020 10:58
--- NOTE | 2020-06-30 11:30 | Occupational Ther Daily Note ---
OT Current Status-Daily Note Subjective Pt alert, sitting in w/c. Pt agrees to therapy. No c/o pain at this time. Mental Status/Objective Patient Orientation: Person, Place, Time, Situation Attachments: IV (midline), Other-See Comments (knee immobilizer) ADL-Treatment Pt agrees to shower. Pt independent with toilet transfer and toileting using grabbars and w/c. Pt transfers in<-->out shower with supervision due to wound vac/tubing. IV site and wound sight covered. Pt bathed all areas sitting on shower bench except buttocks, assist only for wound vac/tubing. Pt retrieved clothing before session started. Pt able to don upper body clothing inde pendently. Assist only for wound vac/tubing for lower body dressing, pt able to complete rest by self. Pt requested ALDA hose due to lower legs swelling. Assist to don/doff ALDA hose, pt donned/doffed socks independently. Pt completes oral care independently sitting at sink. Pt is able to doff knee immobilizer independently. Sitting on bed, pt able to don independently though any other sitting position pt requires assistance. After session, pt sitting in recliner with call light/phone in reach. All needs met. Therapy Code Descriptions/Definitions Functional [place] Measure: 0=Not Assessed/NA 4=Minimal Assistance 1=Total Assistance 5=Supervision or Setup 2=Maximal Assistance 6=Modified [place] 3=Moderate Assistance 7=Complete IndependenceSCALE: Activities may be completed with or without assistive devices. 4-Cqxizdtkke-uchsyzg completes the activity by him/herself with no assistance from a helper. 5-Set-up or Clean-up Assistance-helper sets up or cleans up; patient completes activity. [place] assists only prior to or following the activity. 4-Supervision or Touching Assistance-helper provides verbal cues and/or touching/steadying and/or contact guard assistance as patient completes activity. Assistance may be provided throughout the activity or intermittently. 3-Partial/Moderate Assistance-helper does LESS THAN HALF the effort. [place] lifts, holds or supports trunk or limbs, but provides less than half the effort. 2-Substantial/Maximal Assistance-helper does MORE THAN HALF the effort. [place] lifts or holds trunk or limbs and provides more than half the effort. 0-Zvfaggduo-bmjask does ALL the effort. Patient does none of the effort to com plete the activity. Or, the assistance of 2 or more helpers is required for the patient to complete the activity. If activity was not attempted, code reason: 7-Patient Refused. 9-Not Applicable-not attempted and the patient did not perform the activity before the current illness, exacerbation or injury. 10-Not Attempted due to Environmental Limitations-(lack of equipment, weather restraints, etc.). 88-Not Attempted due to Medical Conditions or Safety Concerns. Eating (QC): 6 Oral Hygiene (QC): 6 Shower/Bathe Self (QC): 4 Upper Body Dressing (QC): 6 Lower Body Dressing (QC): 4 On/Off Footwear: 3 Toileting Hygiene (QC): 6 Toilet Transfer (QC): 6 OT Short Term Goals Short Term Goals Time Frame: Jul 05, 2020 Oral hygiene: 5 Toileting hygiene: 5 Shower/bathe self: 5 Lower body dressin OT Admitting Coordinator Goals Fpc Goals Time Frame: Jul 14, 2020 Eating (QC): 6 Oral Hygiene (QC): 6 Toileting Hygiene (QC): 6 Shower/Bathe Self (QC): 6 Upper Body Dressing (QC): 6 Lower Body Dressing (QC): 6 On/Off Footwear (QC): 6 Additional Goals: 1-Demonstrate ADL Tasks, 2-Verbalize Understanding, 3- ImproveStrength/Zoë 1=Demonstrate adherence to instructed precautions during ADL tasks. 2=Patient will verbalize/demonstrate understanding of assistive devic es/modifications for ADL. 3=Patient will improve strength/tolerance for activity to enable patient to perform ADL's. OT Education/Plan Problem List/Assessment Assessment: Decreased Activ Tolerance, Impaired Self-Care Skills Discharge Recommendations Plan/Recommendations: Continue POC Treatment Plan/Plan of Care Patient would benefit from OT for education, treatment and training to promote independence in ADL's, mobility, safety and/or upper extremity function for ADL's. Plan of Care: ADL Retraining, Functional Mobility, Group Exercise/Act as Ind, UE Funct Exercise/Act Treatment Duration: Jul 14, 2020 Frequency: At least 5 of 7 days/Wk (IRF) Estimated Hrs Per Day: 1.5 hours per day Agreement: Yes Rehab Potential: Fair Time/GCodes Start Time: 10:20 Stop Time: 11:50 Total Time Billed (hr/min): 90 Billed Treatment Time 1 visit-ADL 6 (90 min) AGUILAR MAYFIELD Jun 30, 2020 11:30
[2020-06-30] MEDS: VITAMIN D2 1.25 MG (50,000 UNITS) CAP PO SCH (13:39)
--- NOTE | 2020-06-30 15:47 | Physical Therapy Daily Note ---
PT Daily Note-Current Subjective Pt in [facility] prior to session, agreeable to PT treatment at this time. She denies pain in her leg during session. Appearance Following session, pt in [facility] with RLE elevated. Pt father present in room, all needs met at this time. Mental Status Patient Orientation: Person, Place, Situation Transfers SCALE: Activities may be completed with or without assistive devices. 3-Blbkramzyz-yhzolpy completes the activity by him/herself with no assistance from a helper. 5-Set-up or Clean-up Assistance-helper sets up or cleans up; patient completes activity. [place] assists only prior to or following the activity. 4-Supervision or Touching Assistance-helper provides verbal cues and/or touching/steadying and/or contact guard assistance as patient completes activity. Assistance may be provided throughout the activity or intermittently. 3-Partial/Moderate Assistance-helper does LESS THAN HALF the effort. [place] lifts, holds or supports trunk or limbs, but provides less than half the effort. 2-Substantial/Maximal Assistance-helper does MORE THAN HALF the effort. [place] lifts or holds trunk or limbs and provides more than half the effort. 5-Rdaaagfcu-bjctvc does ALL the effort. Patient does none of the effort to complete the activity. Or, the assistance of 2 or more helpers is required for the patient to complete the activity. If activity was not attempted, code reason: 7-Patient Refused. 9-Not Applicable-not attempted and the patient did not perform the activity before the current illness, exacerbation or injury. 10-Not Attempted due to Environmental Limitations-(lack of equipment, weather restraints, etc.). 88-Not Attempted due to Medical Conditions or Safety Concerns. Sit to Stand (QC): 4 Weight Bearing Right Lower Extremity: Right Touch Toe Bearing right knee immobilizer on with activity, she can have it off when in bed or in recliner with legs elevated Gait Training Distance: 150', 120' Walk 50 ft with 2 Turns(QC): 4 Walk 150 ft (QC): 4 Gait Assistive Device: Walker Platform (bilateral platform) Pt ambulates with SBA throughout all, she does require cueing for WB precautions with fatigue as she tends to put more weight through RLE than TTWB. Assessment Current Status: Good Progress Pt with good effort, able to increase ambulation distance without requiring standing rest breaks. Will continue to progress pt activity tolerance as able. PT Short Term Goals Short Term Goals Time Frame: Jul 05, 2020 Roll Left & Right: 6 Sit to lyin Lying to sitting on side of be: 6 Sit to stand: 6 Chair/zrp-hq-iyhgh transfer: 5 Walk 10 feet: 5 Walk 50 feet with two turns: 5 Walk 150 feet: 5 PT Retirement Goals Torch Straightener Goals PT Retirement Goals Time Frame: Jul 19, 2020 Roll Left & Right (QC): 6 Sit to Lying (QC): 6 Lying-Sitting on Side/Bed(QC): 6 Sit to Stand (QC): 6 Chair/Jgk-ic-Mxodb Xfer(QC): 6 Toilet Transfer (QC): 6 Car Transfer (QC): 6 Does the Patient Walk: Yes Walk 10 feet (QC): 6 Walk 50ft with 2 Turns (QC): 6 Walk 150 ft (QC): 6 Walking 10ft on Uneven Surface: 6 1 Step (curb) (QC): 6 4 Steps (QC): 3 12 Steps (QC): 88 Picking up an Object (QC): 88 Wheel 50 feet with 2 turns (QC: 9 Wheel 150 feet: 9 PT Plan Problem List Problem List: Activity Tolerance, Functional Strength, Safety, Balance, Gait, Transfer, Bed Mobility, ROM Treatment/Plan Treatment Plan: Continue Plan of Care Treatment Plan: Bed Mobility, Education, Functional Activity Zoë, Functional Strength, Group Therapy, Gait, Safety, Therapeutic Exercise, Transfers Treatment Duration: Jul 19, 2020 Frequency: At least 5 of 7 days/Wk (IRF) Estimated Hrs Per Day: 1.5 hours per day Patient and/or Family Agrees t: Yes Time/GCodes Time In: 1415 Time Out: 1445 Total Billed Treatment Time: 30 Total Billed Treatment 1 visit GT x 2 (30') SAHIL MCCOY PT Jun 30, 2020 15:47
[2020-06-30 16:00] VITALS: BP 111/53
[2020-06-30] MEDS: LORATADINE (CLARITIN) 10 MG TAB PO SCH (21:55)
[2020-07-01] MEDS: HYDROmorphone (DILAUDID) 2 MG TAB PO PRN ×5 (03:44→20:30)
[2020-07-01 05:12] VITALS: BP 114/59
[2020-07-01] MEDS: inSUlin ASPART (NovoLOG) 1 UNIT/0.01 ML (CHARGE PER UNIT) SC SCH ×4 (06:00→20:23)
[2020-07-01] MEDS ORDERED: glipiZIDE 5 MG (GLUCOTROL) TAB PO SCH (06:30)
[2020-07-01] MEDS: IRON SUCROSE 200 MG/10 ML (VENOFER) VIAL IV SCH (07:59)
[2020-07-01] MEDS: polyethylene glycoL POWDER 17 GM (MIRALAX) PACK PO SCH ×2 (07:59→20:29)
[2020-07-01] MEDS: DOCUSATE SODIUM 100 MG (COLACE) CAP PO SCH ×2 (08:00→20:38)
[2020-07-01] MEDS: PANTOPRAZOLE 20 MG TABLET (PROTONIX) PO SCH (08:00)
[2020-07-01] MEDS: LACTOBACILLUS ACIDOPHILUS (PROBIOTIC) CAPSULE PO SCH (08:00)
[2020-07-01] MEDS: ACETAMINOPHEN 500 MG TAB (TYLENOL) PO SCH ×2 (08:00→15:25)
[2020-07-01] MEDS: CALCIUM CARBONATE 500 MG (TUMS) TAB.CHEW PO SCH (08:00)
[2020-07-01] MEDS: FLUoxetine HCL 20 MG (PROzac) CAP PO SCH (08:00)
[2020-07-01] MEDS: CYANOCOBALAMIN 1,000 MCG (VITAMIN B-12) TABLET PO SCH (08:00)
[2020-07-01] MEDS: NAPROXEN 250 MG (NAPROSYN) TABLET PO SCH ×2 (08:00→20:29)
[2020-07-01] MEDS: FOLIC ACID 1 MG TAB PO SCH (08:00)
[2020-07-01] MEDS: COLESTIPOL 1 GM (COLESTID) TAB PO SCH ×2 (08:01→21:00)
[2020-07-01] MEDS: SENNA W/DOCUSATE (SENOKOT S) TABLET PO SCH ×2 (08:01→20:38)
[2020-07-01] MEDS: LEVOTHYROXINE 75 MCG (LEVOTHROID) TABLET PO SCH (08:01)
[2020-07-01] MEDS: ASPIRIN E.C. 81 MG (ECOTRIN) TAB PO SCH ×2 (08:01→20:29)
[2020-07-01] MEDS: MULTIVIT W/MINERALS TAB (THERAGRAN M) PO SCH (08:01)
--- NOTE | 2020-07-01 11:50 | Physical Therapy Daily Note ---
PT Daily Note-Current Subjective Pt laying Supine in bed upon arrival. Pt finishes ordering lunch. Pt agrees to PT but asks to use BR. Pain Numeric Pain Scale: 5-Moderate Pain Location: Right, Incisional Location Body Site: Thigh Pain Description: Ache Mental Status Patient Orientation: Person, Place, Time, Situation Attachments: Other-See Comments (Knee Immobilizer) Transfers SCALE: Activities may be completed with or without assistive devices. 5-Rpinxtechh-wzbybgq completes the activity by him/herself with no assistance from a helper. 5-Set-up or Clean-up Assistance-helper sets up or cleans up; patient completes activity. [place] assists only prior to or following the activity. 4-Supervision or Touching Assistance-helper provides verbal cues and/or touching/steadying and/or contact guard assistance as patient completes activity. Assistance may be provided throughout the activity or intermittently. 3-Partial/Moderate Assistance-helper does LESS THAN HALF the effort. [place] lifts, holds or supports trunk or limbs, but provides less than half the effort. 2-Substantial/Maximal Assistance-helper does MORE THAN HALF the effort. [place] lifts or holds trunk or limbs and provides more than half the effort. 0-Rewpavwuq-ngcqlh does ALL the effort. Patient does none of the effort to complete the activity. Or, the assistance of 2 or more helpers is required for the patient to complete the activity. If activity was not attempted, code reason: 7-Patient Refused. 9-Not Applicable-not attempted and the patient did not perform the activity before the current illness, exacerbation or injury. 10-Not Attempted due to Environmental Limitations-(lack of equipment, weather restraints, etc.). 88-Not Attempted due to Medical Conditions or Safety Concerns. Lying to Sitting/Side of Bed(Q: 5 Sit to Stand (QC): 5 Toilet Transfer (QC): 5 Weight Bearing Right Lower Extremity: Right Touch Toe Bearing right knee immobilizer on with activity, she can have it off when in bed or in recliner with legs elevated Gait Training Does the Patient Walk?: Yes Distance: 10' x2 Walk 10 feet (QC): 5 Gait Assistive Device: FWW Treatments TF to standing and amb. to BR. After finishing toileting, pt returns to recliner with R LE elevated. All needs met, call light in hand. Assessment Current Status: Good Progress Pt is able to don knee immobilizer. PT Short Term Goals Short Term Goals Time Frame: Jul 05, 2020 Roll Left & Right: 6 Sit to lyin Lying to sitting on side of be: 6 Sit to stand: 6 Chair/yrp-gf-dptyc transfer: 5 Walk 10 feet: 5 Walk 50 feet with two turns: 5 Walk 150 feet: 5 PT Intermediate Goals Compensation Adjuster Goals PT Compensation Adjuster Goals Time Frame: Jul 19, 2020 Roll Left & Right (QC): 6 Sit to Lying (QC): 6 Lying-Sitting on Side/Bed(QC): 6 Sit to Stand (QC): 6 Chair/Esv-bk-Vakhk Xfer(QC): 6 Toilet Transfer (QC): 6 Car Transfer (QC): 6 Does the Patient Walk: Yes Walk 10 feet (QC): 6 Walk 50ft with 2 Turns (QC): 6 Walk 150 ft (QC): 6 Walking 10ft on Uneven Surface: 6 1 Step (curb) (QC): 6 4 Steps (QC): 3 12 Steps (QC): 88 Picking up an Object (QC): 88 Wheel 50 feet with 2 turns (QC: 9 Wheel 150 feet: 9 PT Plan Problem List Problem List: Activity Tolerance, Functional Strength Treatment/Plan Treatment Plan: Continue Plan of Care Treatment Plan: Bed Mobility, Education, Functional Activity Zoë, Functional Strength, Group Therapy, Gait, Safety, Therapeutic Exercise, Transfers Treatment Duration: Jul 19, 2020 Frequency: At least 5 of 7 days/Wk (IRF) Estimated Hrs Per Day: 1.5 hours per day Patient and/or Family Agrees t: Yes Safety Risks/Education Patient Education: Gait Training, Reviewed Don/Doff Brace, Safety Issues Teaching Recipient: Patient Teaching Methods: Discussion Response to Teaching: Verbalize Understanding Time/GCodes Time In: 1035 Time Out: 1110 Total Billed Treatment Time: 35 Total Billed Treatment 1, FA x2 ISMAEL BEARD BENEFITS REPRESENTATIVE Jul 01, 2020 11:50
[2020-07-01] MEDS: CYCLOBENZAPRINE 10 MG (FLEXERIL) TAB PO PRN (11:58)
--- NOTE | 2020-07-01 12:59 | PM&R Progress Note ---
Subjective HPI/CC On Admission Date Seen by Provider: Jul 01, 2020 Time Seen by Provider: 13:00 Subjective/Events-last exam 07/01/20: Patient having a lot of pain currently so we gave pain meds and Xanax and Toradol was ordered Venofer fell and spilled on floor Sugars are improved Monitoring closely 06/30/20: Decreasing Levemir and OHA Hypoglycemia noted Accuchecks prn ordered Monitoring closely Wound vac changed to ours and doing well 06/29/20: Wound vac management graciously accepted by Dr Sosa Midline will be placed for additional iron infusions Vit B12 maintained also Hgb stable at 8.6 Pain controlled Sugar low this am so will monitor that closely Review of Systems General: Fatigue, Malaise Musculoskeletal: leg pain Neurological: Weakness Objective Exam Vital Signs Vital Signs Date Time Temp Pulse Resp B/P (MAP) Pulse Ox O2 Delivery O2 Flow Rate FiO2 07/02/20 06:00 36.1 77 17 112/56 (74) 96 Room Air Capillary Refill : Less Than 3 Seconds General Appearance: No Apparent Distress, WD/WN, Obese, Other (pale) HEENT: PERRL/EOMI, Normal ENT Inspection, Pharynx Normal Neck: Full Range of Motion, Normal Inspection, Non Tender, Supple, Carotid Bruit Respiratory: Chest Non Tender, Lungs Clear, Normal Breath Sounds, No Accessory Muscle Use, No Respiratory Distress Cardiovascular: Regular Rate, Rhythm, No Edema, No Gallop, No JVD, No Murmur, Normal Peripheral Pulses Gastrointestinal: Normal Bowel Sounds, No Organomegaly, No Pulsatile Mass, Non Tender, Soft Back: Normal Inspection, No CVA Tenderness, No Vertebral Tenderness Extremity: Normal Capillary Refill, Normal Inspection, Normal Range of Motion (except right leg), Non Tender, No Calf Tenderness, No Pedal Edema Neurologic/Psychiatric: Alert, Oriented x3, No Motor/Sensory Deficits, Normal Mood/Affect, Motor Weakness (right leg) Skin: Normal Color, Warm/Dry Lymphatic: No Adenopathy Results/Procedures Lab Patient resulted labs reviewed. FIM Transfers Therapy Code Descriptions/Definitions Functional [place] Measure: 0=Not Assessed/NA 4=Minimal Assistance 1=Total Assistance 5=Supervision or Setup 2=Maximal Assistance 6=Modified [place] 3=Moderate Assistance 7=Complete IndependenceSCALE: Activities may be completed with or without assistive devices. 7-Giehwyvnom-iciyxdd completes the activity by him/herself with no assistance from a helper. 5-Set-up or Clean-up Assistance-helper sets up or cleans up; patient completes activity. [place] assists only prior to or following the activity. 4-Supervision or Touching Assistance-helper provides verbal cues and/or touching/steadying and/or contact guard assistance as patient completes activity. Assistance may be provided throughout the activity or intermittently. 3-Partial/Moderate Assistance-helper does LESS THAN HALF the effort. [place] lifts, holds or supports trunk or limbs, but provides less than half the effort. 2-Substantial/Maximal Assistance-helper does MORE THAN HALF the effort. [place] lifts or holds trunk or limbs and provides more than half the effort. 5-Zwgjhebyn-svoejw does ALL the effort. Patient does none of the effort to complete the activity. Or, the assistance of 2 or more helpers is required for the patient to complete the activity. If activity was not attempted, code reason: 7-Patient Refused. 9-Not Applicable-not attempted and the patient did not perform the activity before the current illness, exacerbation or injury. 10-Not Attempted due to Environmental Limitations-(lack of equipment, weather restraints, etc.). 88-Not Attempted due to Medical Conditions or Safety Concerns. Roll Left to Right (QC): 6 Sit to Lying (QC): 6 Sit to Stand (QC): 5 Chair/Gjq-ny-Nzeco Xfer(QC): 4 Car Transfer (QC): 4 Gait Training Does the Patient Walk?: Yes Distance: 10' x2 Walk 10 feet (QC): 5 Walk 50 ft with 2 Turns(QC): 4 Walk 150 ft (QC): 4 Walking 10ft/uneven surface-QC: 4 Gait Persons Needed: 1 Gait Assistive Device: FWW Wheelchair Training Does the Pt Use a Wheelchair?: Yes Wheel 50 ft with 2 turns (QC): 9 Wheel 150 ft (QC): 6 Type of Wheelchair: Manual Stair Training 1 Step (curb) (QC): 88 4 Steps (QC): 88 12 Steps (QC): 88 Balance Picking up an Object (QC): 88 ADL-Treatment Eating (QC): 6 Oral Hygiene (QC): 6 Shower/Bathe Self (QC): 4 Upper Body Dressing (QC): 6 Lower Body Dressing (QC): 4 On/Off Footwear (QC): 3 Toileting Hygiene (QC): 6 Toilet Transfer (QC): 6 Assessment/Plan Assessment and Plan Assess & Plan/Chief Complaint Assessment: s/p right distal hip fracture bucky breakage s/p revision 06/23/[address] [place] [address] Demetrio juinor with removal of deep implant and replacement Morbid obesity BMI 47 RAY on CPAP Night time hypoxia DM with variable sugars Post op anemia due to acute blood loss HTN GERD Plan: IRF protocol Pain control Monitor hgb Iron infusions? 06/29/20: Midline Venofer Dr Sosa for wound vac management and is appreciated Pain control Monitor hypoglycemia 06/30/20: Decrease insulin and OHA Monitor pain Fall risk Wound vac 07/01/20: Pain control Added Toradol Monitor closely (1) History of revision of total replacement of right hip joint (2) Diabetes (3) Obesity, morbid, BMI 50 or higher (4) RAY on CPAP RAHUL BRIDGES DO Jul 01, 2020 12:59
[2020-07-01] MEDS ORDERED: KETOROLAC 30 MG/ML VIAL IVP PRN (13:00)
[2020-07-01 16:37] VITALS: BP 116/55
[2020-07-01] MEDS: LORATADINE (CLARITIN) 10 MG TAB PO SCH (20:29)
[2020-07-02] MEDS: ACETAMINOPHEN 500 MG TAB (TYLENOL) PO SCH ×4 (00:22→23:52)
[2020-07-02] MEDS: HYDROmorphone (DILAUDID) 2 MG TAB PO PRN ×5 (00:32→21:38)
[2020-07-02] MEDS: inSUlin ASPART (NovoLOG) 1 UNIT/0.01 ML (CHARGE PER UNIT) SC SCH ×4 (05:49→21:45)
[2020-07-02 06:00] VITALS: BP 112/56
[2020-07-02] MEDS: LEVOTHYROXINE 75 MCG (LEVOTHROID) TABLET PO SCH (06:42)
--- NOTE | 2020-07-02 07:10 | PM&R Progress Note ---
Subjective HPI/CC On Admission Date Seen by Provider: Jul 02, 2020 Time Seen by Provider: 13:00 Subjective/Events-last exam 07/02/20: In much better mood today Pain is controlled Toradol only given once BM+ Sugars 150's improved no hypoglycemia 07/01/20: Patient having a lot of pain currently so we gave pain meds and Xanax and Toradol was ordered Venofer fell and spilled on floor Sugars are improved Monitoring closely 06/30/20: Decreasing Levemir and OHA Hypoglycemia noted Accuchecks prn ordered Monitoring closely Wound vac changed to ours and doing well 06/29/20: Wound vac management graciously accepted by Dr Sosa Midline will be placed for additional iron infusions Vit B12 maintained also Hgb stable at 8.6 Pain controlled Sugar low this am so will monitor that closely Review of Systems Musculoskeletal: leg pain Objective Exam Vital Signs Vital Signs Date Time Temp Pulse Resp B/P (MAP) Pulse Ox O2 Delivery O2 Flow Rate FiO2 07/02/20 18:14 36.4 71 18 127/61 (83) 97 Room Air Capillary Refill : Less Than 3 Seconds General Appearance: No Apparent Distress, WD/WN, Obese, Other (pale) HEENT: PERRL/EOMI, Normal ENT Inspection, Pharynx Normal Neck: Full Range of Motion, Normal Inspection, Non Tender, Supple, Carotid Bruit Respiratory: Chest Non Tender, Lungs Clear, Normal Breath Sounds, No Accessory Muscle Use, No Respiratory Distress Cardiovascular: Regular Rate, Rhythm, No Edema, No Gallop, No JVD, No Murmur, Normal Peripheral Pulses Gastrointestinal: Normal Bowel Sounds, No Organomegaly, No Pulsatile Mass, Non Tender, Soft Back: Normal Inspection, No CVA Tenderness, No Vertebral Tenderness Extremity: Normal Capillary Refill, Normal Inspection, Normal Range of Motion (except right leg), Non Tender, No Calf Tenderness, No Pedal Edema Neurologic/Psychiatric: Alert, Oriented x3, No Motor/Sensory Deficits, Normal Mood/Affect, Motor Weakness (right leg) Skin: Normal Color, Warm/Dry Lymphatic: No Adenopathy Results/Procedures Lab Patient resulted labs reviewed. FIM Transfers Therapy Code Descriptions/Definitions Functional [place] Measure: 0=Not Assessed/NA 4=Minimal Assistance 1=Total Assistance 5=Supervision or Setup 2=Maximal Assistance 6=Modified [place] 3=Moderate Assistance 7=Complete IndependenceSCALE: Activities may be completed with or without assistive devices. 5-Cafmnavxjf-vtlrxxs completes the activity by him/herself with no assistance from a helper. 5-Set-up or Clean-up Assistance-helper sets up or cleans up; patient completes activity. [place] assists only prior to or following the activity. 4-Supervision or Touching Assistance-helper provides verbal cues and/or touching/steadying and/or contact guard assistance as patient completes activity. Assistance may be provided throughout the activity or intermittently. 3-Partial/Moderate Assistance-helper does LESS THAN HALF the effort. [place] lifts, holds or supports trunk or limbs, but provides less than half the effort. 2-Substantial/Maximal Assistance-helper does MORE THAN HALF the effort. [place] lifts or holds trunk or limbs and provides more than half the effort. 2-Zymgbsjsc-gldxrj does ALL the effort. Patient does none of the effort to complete the activity. Or, the assistance of 2 or more helpers is required for the patient to complete the activity. If activity was not attempted, code reason: 7-Patient Refused. 9-Not Applicable-not attempted and the patient did not perform the activity before the current illness, exacerbation or injury. 10-Not Attempted due to Environmental Limitations-(lack of equipment, weather restraints, etc.). 88-Not Attempted due to Medical Conditions or Safety Concerns. Roll Left to Right (QC): 6 Sit to Lying (QC): 6 Sit to Stand (QC): 5 Chair/Pni-pv-Gxiqv Xfer(QC): 4 Car Transfer (QC): 4 Gait Training Does the Patient Walk?: Yes Distance: 10' x2 Walk 10 feet (QC): 5 Walk 50 ft with 2 Turns(QC): 4 Walk 150 ft (QC): 4 Walking 10ft/uneven surface-QC: 4 Gait Persons Needed: 1 Gait Assistive Device: FWW Wheelchair Training Does the Pt Use a Wheelchair?: Yes Wheel 50 ft with 2 turns (QC): 9 Wheel 150 ft (QC): 6 Type of Wheelchair: Manual Stair Training 1 Step (curb) (QC): 88 4 Steps (QC): 88 12 Steps (QC): 88 Balance Picking up an Object (QC): 88 ADL-Treatment Eating (QC): 6 Oral Hygiene (QC): 6 Shower/Bathe Self (QC): 4 Upper Body Dressing (QC): 6 Lower Body Dressing (QC): 4 On/Off Footwear (QC): 3 Toileting Hygiene (QC): 6 Toilet Transfer (QC): 6 Assessment/Plan Assessment and Plan Assess & Plan/Chief Complaint Assessment: s/p right distal hip fracture bucky breakage s/p revision 06/23/[address] [place] [address] Randhawa with removal of deep implant and replacement Morbid obesity BMI 47 RAY on CPAP Night time hypoxia DM with variable sugars Post op anemia due to acute blood loss HTN GERD Plan: IRF protocol Pain control Monitor hgb Iron infusions? 06/29/20: Midline Venofer Dr Sosa for wound vac management and is appreciated Pain control Monitor hypoglycemia 06/30/20: Decrease insulin and OHA Monitor pain Fall risk Wound vac 07/01/20: Pain control Added Toradol Monitor closely 07/02/20: Monitor pain Monitor sugars (1) History of revision of total replacement of right hip joint (2) Diabetes (3) Obesity, morbid, BMI 50 or higher (4) RAY on CPAP RAHUL BRIDGES DO Jul 02, 2020 07:10
[2020-07-02] MEDS: SENNA W/DOCUSATE (SENOKOT S) TABLET PO SCH ×2 (08:13→21:47)
[2020-07-02] MEDS: polyethylene glycoL POWDER 17 GM (MIRALAX) PACK PO SCH ×2 (08:13→21:47)
[2020-07-02] MEDS: FLUoxetine HCL 20 MG (PROzac) CAP PO SCH (08:13)
[2020-07-02] MEDS: FOLIC ACID 1 MG TAB PO SCH (08:13)
[2020-07-02] MEDS: DOCUSATE SODIUM 100 MG (COLACE) CAP PO SCH ×2 (08:13→21:47)
[2020-07-02] MEDS: MULTIVIT W/MINERALS TAB (THERAGRAN M) PO SCH (08:13)
[2020-07-02] MEDS: LACTOBACILLUS ACIDOPHILUS (PROBIOTIC) CAPSULE PO SCH (08:13)
[2020-07-02] MEDS: CYANOCOBALAMIN 1,000 MCG (VITAMIN B-12) TABLET PO SCH (08:13)
[2020-07-02] MEDS: CALCIUM CARBONATE 500 MG (TUMS) TAB.CHEW PO SCH (08:14)
[2020-07-02] MEDS: COLESTIPOL 1 GM (COLESTID) TAB PO SCH ×2 (08:14→21:39)
[2020-07-02] MEDS: ASPIRIN E.C. 81 MG (ECOTRIN) TAB PO SCH ×2 (08:14→21:38)
[2020-07-02] MEDS: NAPROXEN 250 MG (NAPROSYN) TABLET PO SCH ×2 (08:14→21:38)
[2020-07-02] MEDS: PANTOPRAZOLE 20 MG TABLET (PROTONIX) PO SCH (08:14)
[2020-07-02] MEDS: CYCLOBENZAPRINE 10 MG (FLEXERIL) TAB PO PRN ×2 (10:08→21:38)
[2020-07-02 18:14] VITALS: BP 127/61
[2020-07-02] MEDS: LORATADINE (CLARITIN) 10 MG TAB PO SCH (21:45)
[2020-07-03] MEDS: HYDROmorphone (DILAUDID) 2 MG TAB PO PRN ×4 (03:39→22:02)
--- NOTE | 2020-07-03 05:50 | PM&R Progress Note ---
Subjective HPI/CC On Admission Date Seen by Provider: Jul 03, 2020 Time Seen by Provider: 10:30 Subjective/Events-last exam 07/03/20: Pt very anxious Blood sugar good at 149 Denies any significant new issues Pain is controlled Participating in therapy Wound-vac changed per protocol 07/02/20: In much better mood today Pain is controlled Toradol only given once BM+ Sugars 150's improved no hypoglycemia 07/01/20: Patient having a lot of pain currently so we gave pain meds and Xanax and Toradol was ordered Venofer fell and spilled on floor Sugars are improved Monitoring closely 06/30/20: Decreasing Levemir and OHA Hypoglycemia noted Accuchecks prn ordered Monitoring closely Wound vac changed to ours and doing well 06/29/20: Wound vac management graciously accepted by Dr Sosa Midline will be placed for additional iron infusions Vit B12 maintained also Hgb stable at 8.6 Pain controlled Sugar low this am so will monitor that closely Review of Systems General: Fatigue, Malaise Neurological: Weakness Objective Exam Vital Signs Vital Signs Date Time Temp Pulse Resp B/P (MAP) Pulse Ox O2 Delivery O2 Flow Rate FiO2 07/03/20 21:55 Room Air 07/03/20 16:36 36.5 86 16 132/61 (84) 99 Capillary Refill : Less Than 3 Seconds General Appearance: No Apparent Distress, WD/WN, Obese, Other (pale) HEENT: PERRL/EOMI, Normal ENT Inspection, Pharynx Normal Neck: Full Range of Motion, Normal Inspection, Non Tender, Supple, Carotid Bruit Respiratory: Chest Non Tender, Lungs Clear, Normal Breath Sounds, No Accessory Muscle Use, No Respiratory Distress Cardiovascular: Regular Rate, Rhythm, No Edema, No Gallop, No JVD, No Murmur, Normal Peripheral Pulses Gastrointestinal: Normal Bowel Sounds, No Organomegaly, No Pulsatile Mass, Non Tender, Soft Back: Normal Inspection, No CVA Tenderness, No Vertebral Tenderness Extremity: Normal Capillary Refill, Normal Inspection, Normal Range of Motion (except right leg), Non Tender, No Calf Tenderness, No Pedal Edema Neurologic/Psychiatric: Alert, Oriented x3, No Motor/Sensory Deficits, Normal Mood/Affect, Motor Weakness (right leg) Skin: Normal Color, Warm/Dry Lymphatic: No Adenopathy Results/Procedures Lab Patient resulted labs reviewed. FIM Transfers Therapy Code Descriptions/Definitions Functional [place] Measure: 0=Not Assessed/NA 4=Minimal Assistance 1=Total Assistance 5=Supervision or Setup 2=Maximal Assistance 6=Modified [place] 3=Moderate Assistance 7=Complete IndependenceSCALE: Activities may be completed with or without assistive devices. 3-Upyudecyvy-cmitrtw completes the activity by him/herself with no assistance from a helper. 5-Set-up or Clean-up Assistance-helper sets up or cleans up; patient completes activity. [place] assists only prior to or following the activity. 4-Supervision or Touching Assistance-helper provides verbal cues and/or touching/steadying and/or contact guard assistance as patient completes activity. Assistance may be provided throughout the activity or intermittently. 3-Partial/Moderate Assistance-helper does LESS THAN HALF the effort. [place] lifts, holds or supports trunk or limbs, but provides less than half the effort. 2-Substantial/Maximal Assistance-helper does MORE THAN HALF the effort. [place] lifts or holds trunk or limbs and provides more than half the effort. 3-Yhdybcggr-vcllxt does ALL the effort. Patient does none of the effort to complete the activity. Or, the assistance of 2 or more helpers is required for the patient to complete the activity. If activity was not attempted, code reason: 7-Patient Refused. 9-Not Applicable-not attempted and the patient did not perform the activity before the current illness, exacerbation or injury. 10-Not Attempted due to Environmental Limitations-(lack of equipment, weather restraints, etc.). 88-Not Attempted due to Medical Conditions or Safety Concerns. Roll Left to Right (QC): 6 Sit to Lying (QC): 6 Sit to Stand (QC): 5 Chair/Rqy-vn-Iydhe Xfer(QC): 4 Car Transfer (QC): 4 Gait Training Does the Patient Walk?: Yes Distance: 10' x2 Walk 10 feet (QC): 5 Walk 50 ft with 2 Turns(QC): 4 Walk 150 ft (QC): 4 Walking 10ft/uneven surface-QC: 4 Gait Persons Needed: 1 Gait Assistive Device: FWW Wheelchair Training Does the Pt Use a Wheelchair?: Yes Wheel 50 ft with 2 turns (QC): 9 Wheel 150 ft (QC): 6 Type of Wheelchair: Manual Stair Training 1 Step (curb) (QC): 88 4 Steps (QC): 88 12 Steps (QC): 88 Balance Picking up an Object (QC): 88 ADL-Treatment Eating (QC): 6 Oral Hygiene (QC): 6 Shower/Bathe Self (QC): 4 Upper Body Dressing (QC): 6 Lower Body Dressing (QC): 4 On/Off Footwear (QC): 3 Toileting Hygiene (QC): 6 Toilet Transfer (QC): 6 Assessment/Plan Assessment and Plan Assess & Plan/Chief Complaint Assessment: s/p right distal hip fracture bucky breakage s/p revision 06/23/[address] [place] [address] [place]hawa with removal of deep implant and replacement Morbid obesity BMI 47 RAY on CPAP Night time hypoxia DM with variable sugars Post op anemia due to acute blood loss HTN GERD Plan: IRF protocol Pain control Monitor hgb Iron infusions? 06/29/20: Midline Venofer Dr Sosa for wound vac management and is appreciated Pain control Monitor hypoglycemia 06/30/20: Decrease insulin and OHA Monitor pain Fall risk Wound vac 07/01/20: Pain control Added Toradol Monitor closely 07/02/20: Monitor pain Monitor sugars 07/03/20: Monitor sugars closely Wound vac (1) History of revision of total replacement of right hip joint (2) Diabetes (3) Obesity, morbid, BMI 50 or higher (4) RAY on CPAP RAHUL BIRDGES DO Jul 03, 2020 05:50
[2020-07-03] MEDS: inSUlin ASPART (NovoLOG) 1 UNIT/0.01 ML (CHARGE PER UNIT) SC SCH ×4 (06:00→21:05)
[2020-07-03 06:08] VITALS: BP 124/56
[2020-07-03] MEDS: LEVOTHYROXINE 75 MCG (LEVOTHROID) TABLET PO SCH (06:25)
[2020-07-03] MEDS: CALCIUM CARBONATE 500 MG (TUMS) TAB.CHEW PO SCH (09:08)
[2020-07-03] MEDS: MULTIVIT W/MINERALS TAB (THERAGRAN M) PO SCH (09:08)
[2020-07-03] MEDS: CYANOCOBALAMIN 1,000 MCG (VITAMIN B-12) TABLET PO SCH (09:08)
[2020-07-03] MEDS: LACTOBACILLUS ACIDOPHILUS (PROBIOTIC) CAPSULE PO SCH (09:08)
[2020-07-03] MEDS: COLESTIPOL 1 GM (COLESTID) TAB PO SCH ×3 (09:08→21:50)
[2020-07-03] MEDS: PANTOPRAZOLE 20 MG TABLET (PROTONIX) PO SCH (09:08)
[2020-07-03] MEDS: FOLIC ACID 1 MG TAB PO SCH (09:08)
[2020-07-03] MEDS: NAPROXEN 250 MG (NAPROSYN) TABLET PO SCH ×2 (09:08→21:47)
[2020-07-03] MEDS: ASPIRIN E.C. 81 MG (ECOTRIN) TAB PO SCH ×2 (09:08→21:47)
[2020-07-03] MEDS: ACETAMINOPHEN 500 MG TAB (TYLENOL) PO SCH ×3 (09:08→23:54)
[2020-07-03] MEDS: FLUoxetine HCL 20 MG (PROzac) CAP PO SCH (09:08)
[2020-07-03] MEDS: CYCLOBENZAPRINE 10 MG (FLEXERIL) TAB PO PRN ×2 (09:15→21:59)
[2020-07-03] MEDS: DOCUSATE SODIUM 100 MG (COLACE) CAP PO SCH ×2 (09:16→21:50)
[2020-07-03] MEDS: polyethylene glycoL POWDER 17 GM (MIRALAX) PACK PO SCH ×2 (09:16→21:50)
[2020-07-03] MEDS: SENNA W/DOCUSATE (SENOKOT S) TABLET PO SCH ×2 (09:16→21:50)
--- NOTE | 2020-07-03 10:03 | Physical Therapy Daily Note ---
PT Daily Note-Current Subjective Pt up in recliner chair upon arrival to room, agreeable to PT treatment at this time. Pt has pain levels of 4-5/10 prior to therapy, and reports levels of 7/10 following session. RN notified of pain levels Appearance Following session, pt up in recliner chair with cold pack on and BLE elevated. Mental Status Patient Orientation: Person, Place Attachments: Knee Immobilizer Wound Vac Transfers SCALE: Activities may be completed with or without assistive devices. 3-Sthtolubcl-gyhejpj completes the activity by him/herself with no assistance from a helper. 5-Set-up or Clean-up Assistance-helper sets up or cleans up; patient completes activity. [place] assists only prior to or following the activity. 4-Supervision or Touching Assistance-helper provides verbal cues and/or touching/steadying and/or contact guard assistance as patient completes activity. Assistance may be provided throughout the activity or intermittently. 3-Partial/Moderate Assistance-helper does LESS THAN HALF the effort. [place] lifts, holds or supports trunk or limbs, but provides less than half the effort. 2-Substantial/Maximal Assistance-helper does MORE THAN HALF the effort. [place] lifts or holds trunk or limbs and provides more than half the effort. 6-Stnazxclf-ifoply does ALL the effort. Patient does none of the effort to complete the activity. Or, the assistance of 2 or more helpers is required for the patient to complete the activity. If activity was not attempted, code reason: 7-Patient Refused. 9-Not Applicable-not attempted and the patient did not perform the activity before the current illness, exacerbation or injury. 10-Not Attempted due to Environmental Limitations-(lack of equipment, weather restraints, etc.). 88-Not Attempted due to Medical Conditions or Safety Concerns. Sit to Stand (QC): 4 Chair/Prx-vp-Llgjk Xfer(QC): 4 Weight Bearing Right Lower Extremity: Right Touch Toe Bearing right knee immobilizer on with activity, she can have it off when in bed or in recliner with legs elevated Gait Training Distance: 120', 150' Walk 150 ft (QC): 4 Gait Assistive Device: Walker Platform (bilateral ) Exercises Standing: Heel/toe raises (LLE), Mini squats (LLE) NuStep Minutes: 15 NuStep Workload: 5 (Only LLE used, RLE propped up on step) Treatments Upon arrival to room, pt with cold back on, but she is able to take it off and don knee immobilizer with only assistance to lift RLE to place brace underneath. Pt then ambulated to therapy gym and completed NuStep, then ambulates back to room to complete standing exercise. Assessment Current Status: Good Progress Pt with increased pain levels and requires seated rest breaks during session, due to pain and SOB. Will continue to progress pt as tolerated. PT Short Term Goals Short Term Goals Time Frame: Jul 05, 2020 Roll Left & Right: 6 Sit to lyin Lying to sitting on side of be: 6 Sit to stand: 6 Chair/kui-lj-txobx transfer: 5 Walk 10 feet: 5 Walk 50 feet with two turns: 5 Walk 150 feet: 5 PT Melter Supervisor Oxygen Furnace Goals Senior Care Goals PT Senior Care Goals Time Frame: Jul 19, 2020 Roll Left & Right (QC): 6 Sit to Lying (QC): 6 Lying-Sitting on Side/Bed(QC): 6 Sit to Stand (QC): 6 Chair/Can-li-Nvyzi Xfer(QC): 6 Toilet Transfer (QC): 6 Car Transfer (QC): 6 Does the Patient Walk: Yes Walk 10 feet (QC): 6 Walk 50ft with 2 Turns (QC): 6 Walk 150 ft (QC): 6 Walking 10ft on Uneven Surface: 6 1 Step (curb) (QC): 6 4 Steps (QC): 3 12 Steps (QC): 88 Picking up an Object (QC): 88 Wheel 50 feet with 2 turns (QC: 9 Wheel 150 feet: 9 PT Plan Problem List Problem List: Activity Tolerance, Functional Strength, Safety, Balance, Gait, Transfer, Bed Mobility, ROM Treatment/Plan Treatment Plan: Continue Plan of Care Treatment Plan: Bed Mobility, Education, Functional Activity Zoë, Functional Strength, Group Therapy, Gait, Safety, Therapeutic Exercise, Transfers Treatment Duration: Jul 19, 2020 Frequency: At least 5 of 7 days/Wk (IRF) Estimated Hrs Per Day: 1.5 hours per day Patient and/or Family Agrees t: Yes Time/GCodes Time In: 855 Time Out: 955 Total Billed Treatment Time: 60 Total Billed Treatment 1 visit GT (15') EX (30') FA (15') SAHIL MCCOY PT Jul 03, 2020 10:03
[2020-07-03 10:09] VITALS: BP 121/57
[2020-07-03] MEDS: IRON SUCROSE 200 MG/10 ML (VENOFER) VIAL IV SCH (11:49)
--- NOTE | 2020-07-03 11:58 | Occupational Ther Daily Note ---
OT Current Status-Daily Note Subjective Pt alert, sitting in recliner. Pt states that she feels woozy and her heart is beating hard. Discussed with nrsg and BP and blood sugar WNL. Pt agrees to therapy. Mental Status/Objective Patient Orientation: Person, Place, Time, Situation Attachments: Drains (wound vac), Other-See Comments (knee immobilizer) ADL-Treatment Due to not feeling well, pt decides to complete sponge bath. After set up, pt is able to complete bathing independently. Pt had already gathered clothing. Pt able to don/doff upper and lower body clothing independently. Pt requested to use ALDA hose, assist to don/doff. Pt doffed/donned socks independently. Pt able to don/doff knee immobilizer independently. Pt completed oral care prior to OT. Pt completed toileting and toilet transfer independent from w/c using grabbars. Pt is able to manipulate wound vac to don lower body clothing and to complete mobility/transfers. Therapy Code Descriptions/Definitions Functional [place] Measure: 0=Not Assessed/NA 4=Minimal Assistance 1=Total Assistance 5=Supervision or Setup 2=Maximal Assistance 6=Modified [place] 3=Moderate Assistance 7=Complete IndependenceSCALE: Activities may be completed with or without assistive devices. 7-Obisxdqspu-vtnvyua completes the activity by him/herself with no assistance from a helper. 5-Set-up or Clean-up Assistance-helper sets up or cleans up; patient completes activity. [place] assists only prior to or following the activity. 4-Supervision or Touching Assistance-helper provides verbal cues and/or nadine nikki/steadying and/or contact guard assistance as patient completes activity. Assistance may be provided throughout the activity or intermittently. 3-Partial/Moderate Assistance-helper does LESS THAN HALF the effort. [place] lifts, holds or supports trunk or limbs, but provides less than half the effort. 2-Substantial/Maximal Assistance-helper does MORE THAN HALF the effort. [place] lifts or holds trunk or limbs and provides more than half the effort. 6-Zjjlrocii-gpqnes does ALL the effort. Patient does none of the effort to complete the activity. Or, the assistance of 2 or more helpers is required for the patient to complete the activity. If activity was not attempted, code reason: 7-Patient Refused. 9-Not Applicable-not attempted and the patient did not perform the activity before the current illness, exacerbation or injury. 10-Not Attempted due to Environmental Limitations-(lack of equipment, weather restraints, etc.). 88-Not Attempted due to Medical Conditions or Safety Concerns. Oral Hygiene (QC): 6 Shower/Bathe Self (QC): 5 Upper Body Dressing (QC): 6 Lower Body Dressing (QC): 6 On/Off Footwear: 3 Toileting Hygiene (QC): 6 Toilet Transfer (QC): 6 Other Treatment Simulated home environment tub transfer using w/c, tub transfer bench and rigid leg restaurant hourly manager. Pt was able to complete independently. After session, pt lying in bed with call light/phone in reach. All needs met in room. Education OT Patient Education: Transfer techniques, Use of adapted equipment Teaching Recipient: Patient Teaching Methods: Demonstration, Discussion Response to Teaching: Verbalize Understanding, Return Demonstration OT Short Term Goals Short Term Goals Time Frame: Jul 05, 2020 Oral hygiene: 5 Toileting hygiene: 5 Shower/bathe self: 5 Lower body dressin OT Chcf Goals Chcf Goals Time Frame: Jul 14, 2020 Eating (QC): 6 Oral Hygiene (QC): 6 Toileting Hygiene (QC): 6 Shower/Bathe Self (QC): 6 Upper Body Dressing (QC): 6 Lower Body Dressing (QC): 6 On/Off Footwear (QC): 6 Additional Goals: 1-Demonstrate ADL Tasks, 2-Verbalize Understanding, 3- ImproveStrength/Zoë 1=Demonstrate adherence to instructed precautions during ADL tasks. 2=Patient will verbalize/demonstrate understanding of assistive devices/modifications for ADL. 3=Patient will improve strength/tolerance for activity to enable patient to perform ADL's. OT Education/Plan Problem List/Assessment Assessment: Decreased Activ Tolerance, Impaired Self-Care Skills Discharge Recommendations Plan/Recommendations: Continue POC Treatment Plan/Plan of Care Patient would benefit from OT for education, treatment and training to promote independence in ADL's, mobility, safety and/or upper extremity function for ADL's. Plan of Care: ADL Retraining, Functional Mobility, Group Exercise/Act as Ind, UE Funct Exercise/Act Treatment Duration: Jul 14, 2020 Frequency: At least 5 of 7 days/Wk (IRF) Estimated Hrs Per Day: 1.5 hours per day Agreement: Yes Rehab Potential: Fair Time/GCodes Start Time: 10:15 Stop Time: 11:45 Total Time Billed (hr/min): 90 Billed Treatment Time 1 visit-ADL 4 (60 min) FA 2 (30 min) AGUILAR MAYFIELD Jul 03, 2020 11:58
--- NOTE | 2020-07-03 14:01 | Physical Therapy Daily Note ---
PT Daily Note-Current Subjective Patient in bed pre tx, agrees to PT, has 4/10 pain in right leg. Appearance Patient in bed post tx with nurse call, phone, tray, all needs met, polar care on. Mental Status Patient Orientation: Person, Place, Situation, Normal For Age wound vac and right leg brace Transfers SCALE: Activities may be completed with or without assistive devices. 7-Iorsweiwfe-ulsgeka completes the activity by him/herself with no assistance from a helper. 5-Set-up or Clean-up Assistance-helper sets up or cleans up; patient completes activity. [place] assists only prior to or following the activity. 4-Supervision or Touching Assistance-helper provides verbal cues and/or touching/steadying and/or contact guard assistance as patient completes activit y. Assistance may be provided throughout the activity or intermittently. 3-Partial/Moderate Assistance-helper does LESS THAN HALF the effort. [place] lifts, holds or supports trunk or limbs, but provides less than half the effort. 2-Substantial/Maximal Assistance-helper does MORE THAN HALF the effort. [place] lifts or holds trunk or limbs and provides more than half the effort. 3-Hrhsoxoeo-mbezbj does ALL the effort. Patient does none of the effort to complete the activity. Or, the assistance of 2 or more helpers is required for the patient to complete the activity. If activity was not attempted, code reason: 7-Patient Refused. 9-Not Applicable-not attempted and the patient did not perform the activity before the current illness, exacerbation or injury. 10-Not Attempted due to Environmental Limitations-(lack of equipment, weather restraints, etc.). 88-Not Attempted due to Medical Conditions or Safety Concerns. Roll Left & Right (QC): 6 Sit to Lying (QC): 6 Lying to Sitting/Side of Bed(Q: 6 Sit to Stand (QC): 6 Chair/Rym-li-Ufush Xfer(QC): 6 Patient needs to use the restroom before leaving room and does so without assist. Weight Bearing Right Lower Extremity: Right Touch Toe Bearing right knee immobilizer on with activity, she can have it off when in bed or in recliner with legs elevated Gait Training Distance: 150'x2 Walk 10 feet (QC): 4 Walk 50 ft with 2 Turns(QC): 4 Walk 150 ft (QC): 4 Gait Assistive Device: Walker Platform (bilateral) patient still compliant with TTWB on RLE Exercises Supine Ex: Ankle pumps, Quad Set, Glut sets, Heel Slides (only LLE), Short Arc Quads (only LLE), Straight leg raise (2 sets of 10 on RLE), Hip abd/add (only LLE) Supine Reps: 20 Treatments toileting, ambulation, bed mobility and transfers, LE exercise Assessment Current Status: Fair Progress improving general mobility and LE strength PT Short Term Goals Short Term Goals Time Frame: Jul 05, 2020 Roll Left & Right: 6 Sit to lyin Lying to sitting on side of be: 6 Sit to stand: 6 Chair/pas-cy-pqsjk transfer: 5 Walk 10 feet: 5 Walk 50 feet with two turns: 5 Walk 150 feet: 5 PT Brush Cleaner Goals Brush Cleaner Goals PT Brush Cleaner Goals Time Frame: Jul 19, 2020 Roll Left & Right (QC): 6 Sit to Lying (QC): 6 Lying-Sitting on Side/Bed(QC): 6 Sit to Stand (QC): 6 Chair/Sqm-hj-Hxmmo Xfer(QC): 6 Toilet Transfer (QC): 6 Car Transfer (QC): 6 Does the Patient Walk: Yes Walk 10 feet (QC): 6 Walk 50ft with 2 Turns (QC): 6 Walk 150 ft (QC): 6 Walking 10ft on Uneven Surface: 6 1 Step (curb) (QC): 6 4 Steps (QC): 3 12 Steps (QC): 88 Picking up an Object (QC): 88 Wheel 50 feet with 2 turns (QC: 9 Wheel 150 feet: 9 PT Plan Problem List Problem List: Activity Tolerance, Functional Strength, Safety, Balance, Gait, Transfer, Bed Mobility, ROM Treatment/Plan Treatment Plan: Continue Plan of Care Treatment Plan: Bed Mobility, Education, Functional Activity Zoë, Functional Strength, Group Therapy, Gait, Safety, Therapeutic Exercise, Transfers Treatment Duration: Jul 19, 2020 Frequency: At least 5 of 7 days/Wk (IRF) Estimated Hrs Per Day: 1.5 hours per day Patient and/or Family Agrees t: Yes Safety Risks/Education Patient Education: Gait Training, Transfer Techniques, Correct Positioning, Sa fety Issues Teaching Recipient: Patient Teaching Methods: Demonstration, Discussion Response to Teaching: Reinforcement Needed Time/GCodes Time In: 1330 Time Out: 1400 Total Billed Treatment Time: 30 Total Billed Treatment 1 visit GT 15' EX 15' LORI CHAMBERLAIN PT Jul 03, 2020 14:00
[2020-07-03 16:36] VITALS: BP 132/61
[2020-07-03] MEDS: LORATADINE (CLARITIN) 10 MG TAB PO SCH (21:48)
[2020-07-04] MEDS: HYDROmorphone (DILAUDID) 2 MG TAB PO PRN ×4 (03:36→21:35)
[2020-07-04] MEDS: inSUlin ASPART (NovoLOG) 1 UNIT/0.01 ML (CHARGE PER UNIT) SC SCH ×4 (06:10→21:21)
[2020-07-04] MEDS: LEVOTHYROXINE 75 MCG (LEVOTHROID) TABLET PO SCH (06:41)
[2020-07-04 06:54] VITALS: BP 108/53
[2020-07-04] MEDS: PANTOPRAZOLE 20 MG TABLET (PROTONIX) PO SCH (07:58)
[2020-07-04] MEDS: CALCIUM CARBONATE 500 MG (TUMS) TAB.CHEW PO SCH (07:58)
[2020-07-04] MEDS: LACTOBACILLUS ACIDOPHILUS (PROBIOTIC) CAPSULE PO SCH (07:58)
[2020-07-04] MEDS: FOLIC ACID 1 MG TAB PO SCH (07:58)
[2020-07-04] MEDS: ASPIRIN E.C. 81 MG (ECOTRIN) TAB PO SCH ×2 (07:58→21:45)
[2020-07-04] MEDS: CYANOCOBALAMIN 1,000 MCG (VITAMIN B-12) TABLET PO SCH (07:58)
[2020-07-04] MEDS: FLUoxetine HCL 20 MG (PROzac) CAP PO SCH (07:58)
[2020-07-04] MEDS: NAPROXEN 250 MG (NAPROSYN) TABLET PO SCH ×2 (07:59→21:35)
[2020-07-04] MEDS: MULTIVIT W/MINERALS TAB (THERAGRAN M) PO SCH (07:59)
[2020-07-04] MEDS: SENNA W/DOCUSATE (SENOKOT S) TABLET PO SCH ×2 (08:02→20:06)
[2020-07-04] MEDS: COLESTIPOL 1 GM (COLESTID) TAB PO SCH ×2 (08:03→21:36)
[2020-07-04] MEDS: polyethylene glycoL POWDER 17 GM (MIRALAX) PACK PO SCH ×2 (08:03→20:06)
[2020-07-04] MEDS: DOCUSATE SODIUM 100 MG (COLACE) CAP PO SCH ×2 (08:03→20:06)
[2020-07-04] MEDS: ACETAMINOPHEN 500 MG TAB (TYLENOL) PO SCH ×2 (08:04→15:41)
--- NOTE | 2020-07-04 08:34 | PM&R Progress Note ---
Subjective HPI/CC On Admission Date Seen by Provider: Jul 04, 2020 Time Seen by Provider: 08:40 Subjective/Events-last exam 07/04/20: Doing pretty well Blood sugars stable Wound vac in place No significant new issues 07/03/20: Pt very anxious Blood sugar good at 149 Denies any significant new issues Pain is controlled Participating in therapy Wound-vac changed per protocol 07/02/20: In much better mood today Pain is controlled Toradol only given once BM+ Sugars 150's improved no hypoglycemia 07/01/20: Patient having a lot of pain currently so we gave pain meds and Xanax and Toradol was ordered Venofer fell and spilled on floor Sugars are improved Monitoring closely 06/30/20: Decreasing Levemir and OHA Hypoglycemia noted Accuchecks prn ordered Monitoring closely Wound vac changed to ours and doing well 06/29/20: Wound vac management graciously accepted by Dr Sosa Midline will be placed for additional iron infusions Vit B12 maintained also Hgb stable at 8.6 Pain controlled Sugar low this am so will monitor that closely Review of Systems General: Fatigue, Malaise Musculoskeletal: leg pain Objective Exam Vital Signs Vital Signs Date Time Temp Pulse Resp B/P (MAP) Pulse Ox O2 Delivery O2 Flow Rate FiO2 07/04/20 20:30 Room Air 07/04/20 16:00 36.6 82 16 123/69 (87) 96 Capillary Refill : Less Than 3 Seconds General Appearance: No Apparent Distress, WD/WN, Obese, Other (pale) HEENT: PERRL/EOMI, Normal ENT Inspection, Pharynx Normal Neck: Full Range of Motion, Normal Inspection, Non Tender, Supple, Carotid Bruit Respiratory: Chest Non Tender, Lungs Clear, Normal Breath Sounds, No Accessory Muscle Use, No Respiratory Distress Cardiovascular: Regular Rate, Rhythm, No Edema, No Gallop, No JVD, No Murmur, Normal Peripheral Pulses Gastrointestinal: Normal Bowel Sounds, No Organomegaly, No Pulsatile Mass, Non Tender, Soft Back: Normal Inspection, No CVA Tenderness, No Vertebral Tenderness Extremity: Normal Capillary Refill, Normal Inspection, Normal Range of Motion (except right leg), Non Tender, No Calf Tenderness, No Pedal Edema Neurologic/Psychiatric: Alert, Oriented x3, No Motor/Sensory Deficits, Normal Mood/Affect, Motor Weakness (right leg) Skin: Normal Color, Warm/Dry Lymphatic: No Adenopathy Results/Procedures Lab Patient resulted labs reviewed. FIM Transfers Therapy Code Descriptions/Definitions Functional [place] Measure: 0=Not Assessed/NA 4=Minimal Assistance 1=Total Assistance 5=Supervision or Setup 2=Maximal Assistance 6=Modified [place] 3=Moderate Assistance 7=Complete IndependenceSCALE: Activities may be completed with or without assistive devices. 1-Jmyyjpmgyw-dstbxun completes the activity by him/herself with no assistance from a helper. 5-Set-up or Clean-up Assistance-helper sets up or cleans up; patient completes activity. [place] assists only prior to or following the activity. 4-Supervision or Touching Assistance-helper provides verbal cues and/or touching/steadying and/or contact guard assistance as patient completes activity. Assistance may be provided throughout the activity or intermittently. 3-Partial/Moderate Assistance-helper does LESS THAN HALF the effort. [place] lifts, holds or supports trunk or limbs, but provides less than half the effort. 2-Substantial/Maximal Assistance-helper does MORE THAN HALF the effort. [place] lifts or holds trunk or limbs and provides more than half the effort. 5-Sbxmmsozo-wkymif does ALL the effort. Patient does none of the effort to complete the activity. Or, the assistance of 2 or more helpers is required for the patient to complete the activity. If activity was not attempted, code reason: 7-Patient Refused. 9-Not Applicable-not attempted and the patient did not perform the activity before the current illness, exacerbation or injury. 10-Not Attempted due to Environmental Limitations-(lack of equipment, weather restraints, etc.). 88-Not Attempted due to Medical Conditions or Safety Concerns. Roll Left to Right (QC): 6 Sit to Lying (QC): 6 Sit to Stand (QC): 6 Chair/Jwy-zr-Hwgew Xfer(QC): 6 Car Transfer (QC): 4 Gait Training Does the Patient Walk?: Yes Distance: 150'x2 Walk 10 feet (QC): 4 Walk 50 ft with 2 Turns(QC): 4 Walk 150 ft (QC): 4 Walking 10ft/uneven surface-QC: 4 Gait Persons Needed: 1 Gait Assistive Device: Walker Platform (bilateral) Wheelchair Training Does the Pt Use a Wheelchair?: Yes Wheel 50 ft with 2 turns (QC): 9 Wheel 150 ft (QC): 6 Type of Wheelchair: Manual Stair Training 1 Step (curb) (QC): 88 4 Steps (QC): 88 12 Steps (QC): 88 Balance Picking up an Object (QC): 88 ADL-Treatment Eating (QC): 6 Oral Hygiene (QC): 6 Shower/Bathe Self (QC): 5 Upper Body Dressing (QC): 6 Lower Body Dressing (QC): 6 On/Off Footwear (QC): 3 Toileting Hygiene (QC): 6 Toilet Transfer (QC): 6 Assessment/Plan Assessment and Plan Assess & Plan/Chief Complaint Assessment: s/p right distal hip fracture bucky breakage s/p revision 06/23/[address] [place] [address] [place]hawa with removal of deep implant and replacement Morbid obesity BMI 47 RAY on CPAP Night time hypoxia DM with variable sugars Post op anemia due to acute blood loss HTN GERD Plan: IRF protocol Pain control Monitor hgb Iron infusions? 06/29/20: Midline Venofer Dr Sosa for wound vac management and is appreciated Pain control Monitor hypoglycemia 06/30/20: Decrease insulin and OHA Monitor pain Fall risk Wound vac 07/01/20: Pain control Added Toradol Monitor closely 07/02/20: Monitor pain Monitor sugars 07/03/20: Monitor sugars closely Wound vac 07/04/20: Monitor pain Wound vac per Dr Sosa Minimize insulin (1) History of revision of total replacement of right hip joint (2) Diabetes (3) Obesity, morbid, BMI 50 or higher (4) RAY on CPAP RAHUL BRIDGES DO Jul 04, 2020 08:34
--- NOTE | 2020-07-04 10:55 | Occupational Ther Daily Note ---
OT Current Status-Daily Note Subjective Pt alert, sitting in w/c. Took over care from PT. Pt agrees to therapy. No c/o pain. Mental Status/Objective Patient Orientation: Person, Place, Time, Situation Attachments: Drains (wound vac), IV, Other-See Comments (knee immobilizer) ADL-Treatment Pt agrees to shower. Assisted to cover wound vac and IV site. Pt able to complete shower independently. Pt gathers own clothing at w/c level then dons/doffs independently. Pt completes oral care sitting at sink, independently. Pt takes increased time due to decreased mobility. Pt independent with toileting and toilet transfer. Therapy Code Descriptions/Definitions Functional [place] Measure: 0=Not Assessed/NA 4=Minimal Assistance 1=Total Assistance 5=Supervision or Setup 2=Maximal Assistance 6=Modified [place] 3=Moderate Assistance 7=Complete IndependenceSCALE: Activities may be completed with or without assistive devices. 7-Lmizogblzn-bztxqtq completes the activity by him/herself with no assistance from a helper. 5-Set-up or Clean-up Assistance-helper sets up or cleans up; patient completes activity. [place] assists only prior to or following the activity. 4-Supervision or Touching Assistance-helper provides verbal cues and/or touching/steadying and/or contact guard assistance as patient completes activity. Assistance may be provided throughout the activity or intermittently. 3-Partial/Moderate Assistance-helper does LESS THAN HALF the effort. [place] lifts, holds or supports trunk or limbs, but provides less than half the effort. 2-Substantial/Maximal Assistance-helper does MORE THAN HALF the effort. [place] lifts or holds trunk or limbs and provides more than half the effort. 2-Wizbfbxaq-fgizdr does ALL the effort. Patient does none of the effort to complete the activity. Or, the assistance of 2 or more helpers is required for the patient to complete the activity. If activity was not attempted, code reason: 7-Patient Refused. 9-Not Applicable-not attempted and the patient did not perform the activity before the current illness, exacerbation or injury. 10-Not Attempted due to Environmental Limitations-(lack of equipment, weather restraints, etc.). 88-Not Attempted due to Medical Conditions or Safety Concerns. Eating (QC): 6 (Per clinical judgement, pt able to complete own meal set up and use regular utensils to eat.) Oral Hygiene (QC): 6 Shower/Bathe Self (QC): 6 Upper Body Dressing (QC): 6 Lower Body Dressing (QC): 6 On/Off Footwear: 3 (Using sock aide to don ALDA hose pt required only minimal assist with R sock. Pt independent with all other footwear.) Toileting Hygiene (QC): 6 Toilet Transfer (QC): 6 Other Treatment Pt complete 3 exercises with medium resistance theraband with only 1 cue to slow reps down, horizontal abd/add, bicep flex/ext and diagonal shldr flexion. Introduced tricep extension and lateral shldr abd/add to increase strength. Pt able to complete each with 3 sets 10 reps. After session, pt sitting in w/c with call light/phone in reach. All needs met in room. OT Short Term Goals Short Term Goals Time Frame: Jul 05, 2020 Oral hygiene: 5 Toileting hygiene: 5 Shower/bathe self: 5 Lower body dressin OT Care Home Goals Rail Technician Goals Time Frame: Jul 14, 2020 Eating (QC): 6 (met) Oral Hygiene (QC): 6 (met) Toileting Hygiene (QC): 6 (met) Shower/Bathe Self (QC): 6 (met) Upper Body Dressing (QC): 6 (met) Lower Body Dressing (QC): 6 (met) On/Off Footwear (QC): 6 Additional Goals: 1-Demonstrate ADL Tasks, 2-Verbalize Understanding, 3- ImproveStrength/Zoë 1=Demonstrate adherence to instructed precautions during ADL tasks. 2=Patient will verbalize/demonstrate understanding of assistive devices/modifications for ADL. 3=Patient will improve strength/tolerance for activity to enable patient to perform ADL's. OT Education/Plan Problem List/Assessment Assessment: Decreased UE Strength, Impaired Self-Care Skills Discharge Recommendations Plan/Recommendations: Continue POC Treatment Plan/Plan of Care Patient would benefit from OT for education, treatment and training to promote independence in ADL's, mobility, safety and/or upper extremity function for ADL's. Plan of Care: ADL Retraining, Functional Mobility, Group Exercise/Act as Ind, UE Funct Exercise/Act Treatment Duration: Jul 14, 2020 Frequency: At least 5 of 7 days/Wk (IRF) Estimated Hrs Per Day: 1.5 hours per day Agreement: Yes Rehab Potential: Fair Time/GCodes Start Time: 10:00 Stop Time: 11:30 Total Time Billed (hr/min): 90 Billed Treatment Time 1 visit-ADL 5 (75 min) EX 1 (15 min) AGUILAR MAYFIELD Jul 04, 2020 10:55
--- NOTE | 2020-07-04 12:21 | Physical Therapy Daily Note ---
PT Daily Note-Current Subjective Pt sitting in [facility] in room upon arrival. Pt agrees to PT. Pt reports excited that Wound Vac. might be coming off soon. Pain Numeric Pain Scale: 5-Moderate Pain Location: Right Location Body Site: Thigh Pain Description: Ache Mental Status Patient Orientation: Person, Place, Time, Situation Attachments: Other-See Comments (Knee Immobilizer for R LE & Wound Vac.) Transfers SCALE: Activities may be completed with or without assistive devices. 3-Jmluflqule-yrluhan completes the activity by him/herself with no assistance from a helper. 5-Set-up or Clean-up Assistance-helper sets up or cleans up; patient completes activity. [place] assists only prior to or following the activity. 4-Supervision or Touching Assistance-helper provides verbal cues and/or touching/steadying and/or contact guard assistance as patient completes activity. Assistance may be provided throughout the activity or intermittently. 3-Partial/Moderate Assistance-helper does LESS THAN HALF the effort. [place] lifts, holds or supports trunk or limbs, but provides less than half the effort. 2-Substantial/Maximal Assistance-helper does MORE THAN HALF the effort. [place] lifts or holds trunk or limbs and provides more than half the effort. 1-Uyqixwzwh-wovyyx does ALL the effort. Patient does none of the effort to complete the activity. Or, the assistance of 2 or more helpers is required for the patient to complete the activity. If activity was not attempted, code reason: 7-Patient Refused. 9-Not Applicable-not attempted and the patient did not perform the activity before the current illness, exacerbation or injury. 10-Not Attempted due to Environmental Limitations-(lack of equipment, weather restraints, etc.). 88-Not Attempted due to Medical Conditions or Safety Concerns. Sit to Stand (QC): 5 Weight Bearing Right Lower Extremity: Right Touch Toe Bearing right knee immobilizer on with activity, she can have it off when in bed or in recliner with legs elevated Gait Training Does the Patient Walk?: Yes Distance: 150' Walk 10 feet (QC): 5 Walk 50 ft with 2 Turns(QC): 5 Walk 150 ft (QC): 5 Gait Persons Needed: 1 Gait Assistive Device: Walker Platform Wheelchair Training Does the Pt Use a Wheelchair?: Yes Wheel 50 ft with 2 turns (QC): 5 Wheel 150 ft (QC): 5 Type of Wheelchair: Manual Exercises Seated Therapy Exercises: Ankle pumps, Long arc quads, Hip flexion, Kicking activity, Hamstring Curls, Glut set NuStep Minutes: 20 NuStep Workload: 5 Treatments TF from [facility] to standing and amb. in hallway. Pt completes Seated EX on therapy mat then uses NuStep for 20m at WL 5. Pt rests then propels [facility] back to room to start OT tx. All needs met. Assessment Current Status: Good Progress Pt has improved with strength and activity tolerance as well as gaining independence with mobility. PT Short Term Goals Short Term Goals Time Frame: Jul 05, 2020 Roll Left & Right: 6 Sit to lyin Lying to sitting on side of be: 6 Sit to stand: 6 Chair/esg-by-pmlyc transfer: 5 Walk 10 feet: 5 Walk 50 feet with two turns: 5 Walk 150 feet: 5 PT Licensed Embalmer Goals [facility] Goals PT [facility] Goals Time Frame: Jul 19, 2020 Roll Left & Right (QC): 6 Sit to Lying (QC): 6 Lying-Sitting on Side/Bed(QC): 6 Sit to Stand (QC): 6 Chair/Rpp-ck-Avjlv Xfer(QC): 6 Toilet Transfer (QC): 6 Car Transfer (QC): 6 Does the Patient Walk: Yes Walk 10 feet (QC): 6 Walk 50ft with 2 Turns (QC): 6 Walk 150 ft (QC): 6 Walking 10ft on Uneven Surface: 6 1 Step (curb) (QC): 6 4 Steps (QC): 3 12 Steps (QC): 88 Picking up an Object (QC): 88 Wheel 50 feet with 2 turns (QC: 9 Wheel 150 feet: 9 PT Plan Treatment/Plan Treatment Plan: Continue Plan of Care Treatment Plan: Bed Mobility, Education, Functional Activity Zoë, Functional Strength, Group Therapy, Gait, Safety, Therapeutic Exercise, Transfers Treatment Duration: Jul 19, 2020 Frequency: At least 5 of 7 days/Wk (IRF) Estimated Hrs Per Day: 1.5 hours per day Patient and/or Family Agrees t: Yes Safety Risks/Education Patient Education: Gait Training, Correct Positioning Teaching Recipient: Patient Teaching Methods: Discussion Response to Teaching: Verbalize Understanding Time/GCodes Time In: 900 Time Out: 1000 Total Billed Treatment Time: 60 Total Billed Treatment 1, GT (15m), EX x2 (30m) & FA (15m) ISMAEL BEARD NOZZLE WORKER Jul 04, 2020 12:21
[2020-07-04] MEDS: VITAMIN D2 1.25 MG (50,000 UNITS) CAP PO SCH (13:22)
[2020-07-04] MEDS ORDERED: DIPH25TA65 PO (14:47)
[2020-07-04] MEDS ORDERED: MELO15TA39 PO (14:47)
[2020-07-04] MEDS ORDERED: ACET325C7 PO (14:47)
[2020-07-04] MEDS ORDERED: APIX2.5T PO (14:47)
--- NOTE | 2020-07-04 15:28 | Physical Therapy Daily Note ---
PT Daily Note-Current Subjective Pt in room with WATCH ASSEMBLY INSTRUCTOR after just returning from [place] as JUNIOR NETWORK ADMINISTRATOR arrives. Pt agrees to PT. Pain Location: No Pain Reported Mental Status Patient Orientation: Person, Place, Time, Situation Attachments: Other-See Comments (R Knee Immobilizer & Wound Vac.) Transfers SCALE: Activities may be completed with or without assistive devices. 9-Lrxloaeqqb-byrbpek completes the activity by him/herself with no assistance from a helper. 5-Set-up or Clean-up Assistance-helper sets up or cleans up; patient completes activity. [place] assists only prior to or following the activity. 4-Supervision or Touching Assistance-helper provides verbal cues and/or touching/steadying and/or contact guard assistance as patient completes activity. Assistance may be provided throughout the activity or intermittently. 3-Partial/Moderate Assistance-helper does LESS THAN HALF the effort. [place] lifts, holds or supports trunk or limbs, but provides less than half the effort. 2-Substantial/Maximal Assistance-helper does MORE THAN HALF the effort. [place] lifts or holds trunk or limbs and provides more than half the effort. 1-Uywpvfgfq-gihomg does ALL the effort. Patient does none of the effort to complete the activity. Or, the assistance of 2 or more helpers is required for the patient to complete the activity. If activity was not attempted, code reason: 7-Patient Refused. 9-Not Applicable-not attempted and the patient did not perform the activity before the current illness, exacerbation or injury. 10-Not Attempted due to Environmental Limitations-(lack of equipment, weather restraints, etc.). 88-Not Attempted due to Medical Conditions or Safety Concerns. Sit to Stand (QC): 5 Weight Bearing Right Lower Extremity: Right Touch Toe Bearing right knee immobilizer on with activity, she can have it off when in bed or in recliner with legs elevated Treatments Pt has questions/concerns about when she might DC, HH for Nursing and Therapy as well as how much more Iron pt will take. JUNIOR NETWORK ADMINISTRATOR advised Friday weekly mtg will give a better answer to this questions. SW is advised of these questions after tx. Assessment Current Status: Good Progress Pt is improving with ambulation as well as strength and is getting healthier as well. PT Short Term Goals Short Term Goals Time Frame: Jul 05, 2020 Roll Left & Right: 6 Sit to lyin Lying to sitting on side of be: 6 Sit to stand: 6 Chair/gjx-ph-tbiix transfer: 5 Walk 10 feet: 5 Walk 50 feet with two turns: 5 Walk 150 feet: 5 PT Senior Living Goals Private Duty Rn Goals PT Senior Living Goals Time Frame: Jul 19, 2020 Roll Left & Right (QC): 6 Sit to Lying (QC): 6 Lying-Sitting on Side/Bed(QC): 6 Sit to Stand (QC): 6 Chair/Pud-fv-Dewsh Xfer(QC): 6 Toilet Transfer (QC): 6 Car Transfer (QC): 6 Does the Patient Walk: Yes Walk 10 feet (QC): 6 Walk 50ft with 2 Turns (QC): 6 Walk 150 ft (QC): 6 Walking 10ft on Uneven Surface: 6 1 Step (curb) (QC): 6 4 Steps (QC): 3 12 Steps (QC): 88 Picking up an Object (QC): 88 Wheel 50 feet with 2 turns (QC: 9 Wheel 150 feet: 9 PT Plan Problem List Problem List: Activity Tolerance, Gait Treatment/Plan Treatment Plan: Continue Plan of Care Treatment Plan: Bed Mobility, Education, Functional Activity Zoë, Functional Strength, Group Therapy, Gait, Safety, Therapeutic Exercise, Transfers Treatment Duration: Jul 19, 2020 Frequency: At least 5 of 7 days/Wk (IRF) Estimated Hrs Per Day: 1.5 hours per day Patient and/or Family Agrees t: Yes Safety Risks/Education Patient Education: Gait Training, Correct Positioning, Safety Issues Teaching Recipient: Patient Teaching Methods: Discussion Response to Teaching: Verbalize Understanding Time/GCodes Time In: 1400 Time Out: 1430 Total Billed Treatment Time: 30 Total Billed Treatment 1, FA x2 (30m) ISMAEL BEARD JUNIOR NETWORK ADMINISTRATOR Jul 04, 2020 15:27
[2020-07-04 16:00] VITALS: BP 123/69
[2020-07-04] MEDS: CYCLOBENZAPRINE 10 MG (FLEXERIL) TAB PO PRN (21:35)
[2020-07-04] MEDS: LORATADINE (CLARITIN) 10 MG TAB PO SCH (21:35)
[2020-07-05] MEDS: ACETAMINOPHEN 500 MG TAB (TYLENOL) PO SCH ×4 (00:06→23:40)
[2020-07-05 06:01] VITALS: BP 122/58
[2020-07-05] MEDS: inSUlin ASPART (NovoLOG) 1 UNIT/0.01 ML (CHARGE PER UNIT) SC SCH ×4 (06:05→20:24)
[2020-07-05] MEDS: HYDROmorphone (DILAUDID) 2 MG TAB PO PRN ×3 (06:40→20:15)
[2020-07-05] MEDS: LEVOTHYROXINE 75 MCG (LEVOTHROID) TABLET PO SCH (06:40)
[2020-07-05] MEDS: ASPIRIN E.C. 81 MG (ECOTRIN) TAB PO SCH ×2 (09:02→20:14)
[2020-07-05] MEDS: LACTOBACILLUS ACIDOPHILUS (PROBIOTIC) CAPSULE PO SCH (09:02)
[2020-07-05] MEDS: MULTIVIT W/MINERALS TAB (THERAGRAN M) PO SCH (09:02)
[2020-07-05] MEDS: FOLIC ACID 1 MG TAB PO SCH (09:02)
[2020-07-05] MEDS: NAPROXEN 250 MG (NAPROSYN) TABLET PO SCH ×2 (09:03→20:14)
[2020-07-05] MEDS: CYANOCOBALAMIN 1,000 MCG (VITAMIN B-12) TABLET PO SCH (09:03)
[2020-07-05] MEDS: FLUoxetine HCL 20 MG (PROzac) CAP PO SCH (09:03)
[2020-07-05] MEDS: PANTOPRAZOLE 20 MG TABLET (PROTONIX) PO SCH (09:03)
[2020-07-05] MEDS: CALCIUM CARBONATE 500 MG (TUMS) TAB.CHEW PO SCH (09:03)
[2020-07-05] MEDS: DOCUSATE SODIUM 100 MG (COLACE) CAP PO SCH ×2 (09:06→20:23)
[2020-07-05] MEDS: COLESTIPOL 1 GM (COLESTID) TAB PO SCH ×2 (09:06→20:17)
[2020-07-05] MEDS: SENNA W/DOCUSATE (SENOKOT S) TABLET PO SCH ×2 (09:07→20:23)
[2020-07-05] MEDS: polyethylene glycoL POWDER 17 GM (MIRALAX) PACK PO SCH ×2 (09:07→20:23)
--- NOTE | 2020-07-05 09:30 | PM&R Progress Note ---
Subjective HPI/CC On Admission Date Seen by Provider: Jul 05, 2020 Time Seen by Provider: 09:30 Subjective/Events-last exam 07/05/20: Pt doing very well Blood sugars reviewed Pain is controlled Wound-vac will be changed to portable if okay with Dr. Sosa 07/04/20: Doing pretty well Blood sugars stable Wound vac in place No significant new issues 07/03/20: Pt very anxious Blood sugar good at 149 Denies any significant new issues Pain is controlled Participating in therapy Wound-vac changed per protocol 07/02/20: In much better mood today Pain is controlled Toradol only given once BM+ Sugars 150's improved no hypoglycemia 07/01/20: Patient having a lot of pain currently so we gave pain meds and Xanax and Toradol was ordered Venofer fell and spilled on floor Sugars are improved Monitoring closely 06/30/20: Decreasing Levemir and OHA Hypoglycemia noted Accuchecks prn ordered Monitoring closely Wound vac changed to ours and doing well 06/29/20: Wound vac management graciously accepted by Dr Sosa Midline will be placed for additional iron infusions Vit B12 maintained also Hgb stable at 8.6 Pain controlled Sugar low this am so will monitor that closely Review of Systems General: Fatigue, Malaise Musculoskeletal: leg pain Objective Exam Vital Signs Vital Signs Date Time Temp Pulse Resp B/P (MAP) Pulse Ox O2 Delivery O2 Flow Rate FiO2 07/05/20 20:15 Room Air 07/05/20 18:44 36.4 82 18 135/62 (86) 97 Capillary Refill : Less Than 3 Seconds General Appearance: No Apparent Distress, WD/WN, Obese, Other (pale) HEENT: PERRL/EOMI, Normal ENT Inspection, Pharynx Normal Neck: Full Range of Motion, Normal Inspection, Non Tender, Supple, Carotid Bruit Respiratory: Chest Non Tender, Lungs Clear, Normal Breath Sounds, No Accessory Muscle Use, No Respiratory Distress Cardiovascular: Regular Rate, Rhythm, No Edema, No Gallop, No JVD, No Murmur, Normal Peripheral Pulses Gastrointestinal: Normal Bowel Sounds, No Organomegaly, No Pulsatile Mass, Non Tender, Soft Back: Normal Inspection, No CVA Tenderness, No Vertebral Tenderness Extremity: Normal Capillary Refill, Normal Inspection, Normal Range of Motion (except right leg), Non Tender, No Calf Tenderness, No Pedal Edema Neurologic/Psychiatric: Alert, Oriented x3, No Motor/Sensory Deficits, Normal Mood/Affect, Motor Weakness (right leg) Skin: Normal Color, Warm/Dry Lymphatic: No Adenopathy Results/Procedures Lab Patient resulted labs reviewed. FIM Transfers Therapy Code Descriptions/Definitions Functional [place] Measure: 0=Not Assessed/NA 4=Minimal Assistance 1=Total Assistance 5=Supervision or Setup 2=Maximal Assistance 6=Modified [place] 3=Moderate Assistance 7=Complete IndependenceSCALE: Activities may be completed with or without assistive devices. 5-Mhfxxzmwyp-vfjitbq completes the activity by him/herself with no assistance from a helper. 5-Set-up or Clean-up Assistance-helper sets up or cleans up; patient completes activity. [place] assists only prior to or following the activity. 4-Supervision or Touching Assistance-helper provides verbal cues and/or touching/steadying and/or contact guard assistance as patient completes activity. Assistance may be provided throughout the activity or intermittently. 3-Partial/Moderate Assistance-helper does LESS THAN HALF the effort. [place] lifts, holds or supports trunk or limbs, but provides less than half the effort. 2-Substantial/Maximal Assistance-helper does MORE THAN HALF the effort. [place] lifts or holds trunk or limbs and provides more than half the effort. 2-Aqorhtjhy-npedvm does ALL the effort. Patient does none of the effort to complete the activity. Or, the assistance of 2 or more helpers is required for the patient to complete the activity. If activity was not attempted, code reason: 7-Patient Refused. 9-Not Applicable-not attempted and the patient did not perform the activity before the current illness, exacerbation or injury. 10-Not Attempted due to Environmental Limitations-(lack of equipment, weather restraints, etc.). 88-Not Attempted due to Medical Conditions or Safety Concerns. Roll Left to Right (QC): 6 Sit to Lying (QC): 6 Sit to Stand (QC): 5 Chair/Eyv-al-Sizdv Xfer(QC): 6 Car Transfer (QC): 4 Gait Training Does the Patient Walk?: Yes Distance: 150' Walk 10 feet (QC): 5 Walk 50 ft with 2 Turns(QC): 5 Walk 150 ft (QC): 5 Walking 10ft/uneven surface-QC: 4 Gait Persons Needed: 1 Gait Assistive Device: Walker Platform Wheelchair Training Does the Pt Use a Wheelchair?: Yes Wheel 50 ft with 2 turns (QC): 5 Wheel 150 ft (QC): 5 Type of Wheelchair: Manual Stair Training 1 Step (curb) (QC): 88 4 Steps (QC): 88 12 Steps (QC): 88 Balance Picking up an Object (QC): 88 ADL-Treatment Eating (QC): 6 (Per clinical judgement, pt able to complete own meal set up and use regular utensils to eat.) Oral Hygiene (QC): 6 Shower/Bathe Self (QC): 6 Upper Body Dressing (QC): 6 Lower Body Dressing (QC): 6 On/Off Footwear (QC): 3 (Using sock aide to don ALDA hose pt required only minimal assist with R sock. Pt independent with all other footwear.) Toileting Hygiene (QC): 6 Toilet Transfer (QC): 6 Assessment/Plan Assessment and Plan Assess & Plan/Chief Complaint Assessment: s/p right distal hip fracture bucky breakage s/p revision 06/23/[address] [place] [address] [place] with removal of deep implant and replacement Morbid obesity BMI 47 RAY on CPAP Night time hypoxia DM with variable sugars Post op anemia due to acute blood loss HTN GERD Plan: IRF protocol Pain control Monitor hgb Iron infusions? 06/29/20: Midline Venofer Dr Sosa for wound vac management and is appreciated Pain control Monitor hypoglycemia 06/30/20: Decrease insulin and OHA Monitor pain Fall risk Wound vac 07/01/20: Pain control Added Toradol Monitor closely 07/02/20: Monitor pain Monitor sugars 07/03/20: Monitor sugars closely Wound vac 07/04/20: Monitor pain Wound vac per Dr Sosa Minimize insulin 07/05/20: Monitor sugar Wound vac Glucerna (1) History of revision of total replacement of right hip joint (2) Diabetes (3) Obesity, morbid, BMI 50 or higher (4) RAY on CPAP RAHUL BRIDGES DO Jul 05, 2020 09:30
--- NOTE | 2020-07-05 10:03 | Physical Therapy Daily Note ---
PT Daily Note-Current Subjective Pt sitting in recliner upon arrival. Pt agrees to PT. Pain Location: No Pain Reported Mental Status Patient Orientation: Person, Place, Time, Situation Attachments: Other-See Comments (R Knee Immobilizer & Wound Vac.) Transfers SCALE: Activities may be completed with or without assistive devices. 8-Cuhezmegyr-lbcdyxe completes the activity by him/herself with no assistance from a helper. 5-Set-up or Clean-up Assistance-helper sets up or cleans up; patient completes activity. [place] assists only prior to or following the activity. 4-Supervision or Touching Assistance-helper provides verbal cues and/or touching/steadying and/or contact guard assistance as patient completes activ ity. Assistance may be provided throughout the activity or intermittently. 3-Partial/Moderate Assistance-helper does LESS THAN HALF the effort. [place] lifts, holds or supports trunk or limbs, but provides less than half the effort. 2-Substantial/Maximal Assistance-helper does MORE THAN HALF the effort. [place] lifts or holds trunk or limbs and provides more than half the effort. 8-Zzdfmeywy-sypkgf does ALL the effort. Patient does none of the effort to complete the activity. Or, the assistance of 2 or more helpers is required for the patient to complete the activity. If activity was not attempted, code reason: 7-Patient Refused. 9-Not Applicable-not attempted and the patient did not perform the activity before the current illness, exacerbation or injury. 10-Not Attempted due to Environmental Limitations-(lack of equipment, weather restraints, etc.). 88-Not Attempted due to Medical Conditions or Safety Concerns. Sit to Stand (QC): 5 Toilet Transfer (QC): 5 Weight Bearing Right Lower Extremity: Right Touch Toe Bearing right knee immobilizer on with activity, she can have it off when in bed or in recliner with legs elevated Gait Training Does the Patient Walk?: Yes Distance: 150', 450' Walk 10 feet (QC): 5 Walk 50 ft with 2 Turns(QC): 5 Walk 150 ft (QC): 5 Gait Persons Needed: 1 Gait Assistive Device: Walker Platform Wheelchair Training Does the Pt Use a Wheelchair?: No Exercises NuStep Minutes: 21 NuStep Workload: 5 Treatments TF to standing and amb. in hallway. Pt uses NuStep for 21 min. at WL 5. Pt takes short RB then amb. in hallway. Pt uses BR before resting in recliner at end of tx. All needs met, call light in hand. Assessment Current Status: Good Progress Pt continues to make progress with ambulation and activity tolerance as well as independence of tasks. PT Short Term Goals Short Term Goals Time Frame: Jul 05, 2020 Roll Left & Right: 6 Sit to lyin Lying to sitting on side of be: 6 Sit to stand: 6 Chair/ktt-lg-gbtam transfer: 5 Walk 10 feet: 5 Walk 50 feet with two turns: 5 Walk 150 feet: 5 PT Computing Systems Mechanic Goals Mcc Goals PT Mcc Goals Time Frame: Jul 19, 2020 Roll Left & Right (QC): 6 Sit to Lying (QC): 6 Lying-Sitting on Side/Bed(QC): 6 Sit to Stand (QC): 6 Chair/Fss-ee-Uvuje Xfer(QC): 6 Toilet Transfer (QC): 6 Car Transfer (QC): 6 Does the Patient Walk: Yes Walk 10 feet (QC): 6 Walk 50ft with 2 Turns (QC): 6 Walk 150 ft (QC): 6 Walking 10ft on Uneven Surface: 6 1 Step (curb) (QC): 6 4 Steps (QC): 3 12 Steps (QC): 88 Picking up an Object (QC): 88 Wheel 50 feet with 2 turns (QC: 9 Wheel 150 feet: 9 PT Plan Problem List Problem List: Activity Tolerance Treatment/Plan Treatment Plan: Continue Plan of Care Treatment Plan: Bed Mobility, Education, Functional Activity Zoë, Functional Strength, Group Therapy, Gait, Safety, Therapeutic Exercise, Transfers Treatment Duration: Jul 19, 2020 Frequency: At least 5 of 7 days/Wk (IRF) Estimated Hrs Per Day: 1.5 hours per day Patient and/or Family Agrees t: Yes Safety Risks/Education Patient Education: Gait Training, Correct Positioning Teaching Recipient: Patient Teaching Methods: Discussion Response to Teaching: Verbalize Understanding Time/GCodes Time In: 900 Time Out: 1000 Total Billed Treatment Time: 60 Total Billed Treatment 1, GT x2 (25m), FA (15m) & EX (20m) ISMAEL BEARD TECHNICAL CONSULTANT Jul 05, 2020 10:03
--- NOTE | 2020-07-05 11:58 | Occupational Ther Daily Note ---
OT Current Status-Daily Note Subjective Pt alert, sitting in w/c. Pt agrees to therapy. No c/o pain. Mental Status/Objective Patient Orientation: Person, Place, Time, Situation Attachments: Drains (wound vac), IV ADL-Treatment At w/c level, pt is independent with gathering clothes and supplies for ADLs. Pt completed shower independently after assistance to cover IV and wound vac. Independent with dressing and oral care at w/c level. Independent with toileting and toilet transfer. Pt takes increased time to complete all tasks. Therapy Code Descriptions/Definitions Functional [place] Measure: 0=Not Assessed/NA 4=Minimal Assistance 1=Total Assistance 5=Supervision or Setup 2=Maximal Assistance 6=Modified [place] 3=Moderate Assistance 7=Complete IndependenceSCALE: Activities may be completed with or without assistive devices. 5-Rebawrwbua-nzrmqxp completes the activity by him/herself with no assistance from a helper. 5-Set-up or Clean-up Assistance-helper sets up or cleans up; patient completes activity. [place] assists only prior to or following the activity. 4-Supervision or Touching Assistance-helper provides verbal cues and/or touching/steadying and/or contact guard assistance as patient completes activity. Assistance may be provided throughout the activity or intermittently. 3-Partial/Moderate Assistance-helper does LESS THAN HALF the effort. [place] lifts, holds or supports trunk or limbs, but provides less than half the effort. 2-Substantial/Maximal Assistance-helper does MORE THAN HALF the effort. [place] lifts or holds trunk or limbs and provides more than half the effort. 8-Tqeffrmkz-cdwgbj does ALL the effort. Patient does none of the effort to com plete the activity. Or, the assistance of 2 or more helpers is required for the patient to complete the activity. If activity was not attempted, code reason: 7-Patient Refused. 9-Not Applicable-not attempted and the patient did not perform the activity before the current illness, exacerbation or injury. 10-Not Attempted due to Environmental Limitations-(lack of equipment, weather restraints, etc.). 88-Not Attempted due to Medical Conditions or Safety Concerns. Oral Hygiene (QC): 6 Shower/Bathe Self (QC): 6 Upper Body Dressing (QC): 6 Lower Body Dressing (QC): 6 On/Off Footwear: 6 Toileting Hygiene (QC): 6 Toilet Transfer (QC): 6 Pt uses sock aide to don ALDA hose and socks with hands. Other Treatment Pt propelled w/c to therapy gym to complete arm bike to increase strength and activity tolerance for daily functional tasks. 15 min at 20 bravo resistance. Pt independent with medium resistance B UE theraband exercises. After therapy, pt sitting in recliner with call light/phone in reach. All needs met in room. OT Short Term Goals Short Term Goals Time Frame: Jul 05, 2020 Oral hygiene: 5 Toileting hygiene: 5 Shower/bathe self: 5 Lower body dressin OT Wire Preparation Worker Goals Wire Preparation Worker Goals Time Frame: Jul 14, 2020 Eating (QC): 6 (met) Oral Hygiene (QC): 6 (met) Toileting Hygiene (QC): 6 (met) Shower/Bathe Self (QC): 6 (met) Upper Body Dressing (QC): 6 (met) Lower Body Dressing (QC): 6 (met) On/Off Footwear (QC): 6 (met) Additional Goals: 1-Demonstrate ADL Tasks, 2-Verbalize Understanding, 3- ImproveStrength/Zoë 1=Demonstrate adherence to instructed precautions during ADL tasks. 2=Patient will verbalize/demonstrate understanding of assistive devices/modifications for ADL. 3=Patient will improve strength/tolerance for activity to enable patient to perform ADL's. OT Education/Plan Problem List/Assessment Assessment: Decreased UE Strength Discharge Recommendations Plan/Recommendations: Continue POC Treatment Plan/Plan of Care Patient would benefit from OT for education, treatment and training to promote independence in ADL's, mobility, safety and/or upper extremity function for ADL's. Plan of Care: ADL Retraining, Functional Mobility, Group Exercise/Act as Ind, UE Funct Exercise/Act Treatment Duration: Jul 14, 2020 Frequency: At least 5 of 7 days/Wk (IRF) Estimated Hrs Per Day: 1.5 hours per day Agreement: Yes Rehab Potential: Fair Time/GCodes Start Time: 10:15 Stop Time: 11:45 Total Time Billed (hr/min): 90 Billed Treatment Time 1 visit-ADL 4 (60 min) EX 2 (30 min) AGUILAR MAYFIELD Jul 05, 2020 11:58
[2020-07-05] MEDS: IRON SUCROSE 200 MG/10 ML (VENOFER) VIAL IV SCH (12:06)
--- NOTE | 2020-07-05 14:42 | Physical Therapy Daily Note ---
PT Daily Note-Current Subjective Patient in WC in room pre tx, agrees to PT, has 6/10 pain in right leg. Appearance Patient in WC in room post tx with nurse call, phone, tray, all needs met. Mental Status Patient Orientation: Person, Place, Situation, Normal For Age wound vac Transfers SCALE: Activities may be completed with or without assistive devices. 7-Zkcbziadmp-qdihcch completes the activity by him/herself with no assistance from a helper. 5-Set-up or Clean-up Assistance-helper sets up or cleans up; patient completes activity. [place] assists only prior to or following the activity. 4-Supervision or Touching Assistance-helper provides verbal cues and/or touching/steadying and/or contact guard assistance as patient completes activity. Assistance may be provided throughout the activity or intermittently. 3-Partial/Moderate Assistance-helper does LESS THAN HALF the effort. [place] lifts, holds or supports trunk or limbs, but provides less than half the effort. 2-Substantial/Maximal Assistance-helper does MORE THAN HALF the effort. [place] lifts or holds trunk or limbs and provides more than half the effort. 7-Qurfcuiqq-etanir does ALL the effort. Patient does none of the effort to complete the activity. Or, the assistance of 2 or more helpers is required for the patient to complete the activity. If activity was not attempted, code reason: 7-Patient Refused. 9-Not Applicable-not attempted and the patient did not perform the activity before the current illness, exacerbation or injury. 10-Not Attempted due to Environmental Limitations-(lack of equipment, weather restraints, etc.). 88-Not Attempted due to Medical Conditions or Safety Concerns. Sit to Stand (QC): 6 Chair/Vai-gu-Hatyf Xfer(QC): 6 Weight Bearing Right Lower Extremity: Right Touch Toe Bearing right knee immobilizer on with activity, she can have it off when in bed or in recliner with legs elevated Gait Training Distance: 150'x2 Walk 10 feet (QC): 6 Walk 50 ft with 2 Turns(QC): 6 Walk 150 ft (QC): 6 Gait Assistive Device: Walker Platform (bilateral) Patient is compliant with TTWB on the right leg Exercises Supine Ex: Ankle pumps, Quad Set, Glut sets, Heel Slides (only LLE), Straight leg raise, Hip abd/add (only LLE) Supine Reps: 20 LAQ LLE with 2# ankle weight for 5 min Treatments transfers, ambulation, LE exercise Assessment Current Status: Fair Progress Patient is now independent with ambulation, she can attach her wound vac to her walker PT Short Term Goals Short Term Goals Time Frame: Jul 05, 2020 Roll Left & Right: 6 Sit to lyin Lying to sitting on side of be: 6 Sit to stand: 6 Chair/vui-mn-xjzca transfer: 5 Walk 10 feet: 5 Walk 50 feet with two turns: 5 Walk 150 feet: 5 PT Hydrogen Treater Goals Jail Goals PT Jail Goals Time Frame: Jul 19, 2020 Roll Left & Right (QC): 6 Sit to Lying (QC): 6 Lying-Sitting on Side/Bed(QC): 6 Sit to Stand (QC): 6 Chair/Has-fg-Cydfm Xfer(QC): 6 Toilet Transfer (QC): 6 Car Transfer (QC): 6 Does the Patient Walk: Yes Walk 10 feet (QC): 6 Walk 50ft with 2 Turns (QC): 6 Walk 150 ft (QC): 6 Walking 10ft on Uneven Surface: 6 1 Step (curb) (QC): 6 4 Steps (QC): 3 12 Steps (QC): 88 Picking up an Object (QC): 88 Wheel 50 feet with 2 turns (QC: 9 Wheel 150 feet: 9 PT Plan Problem List Problem List: Activity Tolerance, Functional Strength, Safety, Balance, Gait, Transfer Treatment/Plan Treatment Plan: Continue Plan of Care Treatment Plan: Bed Mobility, Education, Functional Activity Zoë, Functional Strength, Group Therapy, Gait, Safety, Therapeutic Exercise, Transfers Treatment Duration: Jul 19, 2020 Frequency: At least 5 of 7 days/Wk (IRF) Estimated Hrs Per Day: 1.5 hours per day Patient and/or Family Agrees t: Yes Safety Risks/Education Patient Education: Gait Training, Transfer Techniques, Correct Positioning, Saf ety Issues Teaching Recipient: Patient Teaching Methods: Demonstration, Discussion Response to Teaching: Reinforcement Needed Time/GCodes Time In: 1415 Time Out: 1445 Total Billed Treatment Time: 30 Total Billed Treatment 1 visit EX 15' GT 15' LORI CHAMBERLAIN PT Jul 05, 2020 14:42
[2020-07-05 18:44] VITALS: BP 135/62
[2020-07-05] MEDS: LORATADINE (CLARITIN) 10 MG TAB PO SCH (20:14)
[2020-07-05] MEDS: CYCLOBENZAPRINE 10 MG (FLEXERIL) TAB PO PRN (20:15)
--- NOTE | 2020-07-06 05:52 | PM&R Progress Note ---
Subjective HPI/CC On Admission Date Seen by Provider: Jul 06, 2020 Time Seen by Provider: 10:00 Subjective/Events-last exam 07/06/20: No major issues DC planned for Friday Wound vac DC. Reviewed sugars 07/05/20: Pt doing very well Blood sugars reviewed Pain is controlled Wound-vac will be changed to portable if okay with Dr. Sosa 07/04/20: Doing pretty well Blood sugars stable Wound vac in place No significant new issues 07/03/20: Pt very anxious Blood sugar good at 149 Denies any significant new issues Pain is controlled Participating in therapy Wound-vac changed per protocol 07/02/20: In much better mood today Pain is controlled Toradol only given once BM+ Sugars 150's improved no hypoglycemia 07/01/20: Patient having a lot of pain currently so we gave pain meds and Xanax and Toradol was ordered Venofer fell and spilled on floor Sugars are improved Monitoring closely 06/30/20: Decreasing Levemir and OHA Hypoglycemia noted Accuchecks prn ordered Monitoring closely Wound vac changed to ours and doing well 06/29/20: Wound vac management graciously accepted by Dr Sosa Midline will be placed for additional iron infusions Vit B12 maintained also Hgb stable at 8.6 Pain controlled Sugar low this am so will monitor that closely Review of Systems General: Fatigue Musculoskeletal: leg pain Objective Exam Vital Signs Vital Signs Date Time Temp Pulse Resp B/P (MAP) Pulse Ox O2 Delivery O2 Flow Rate FiO2 07/06/20 21:00 Room Air 07/06/20 18:47 36.4 78 18 116/57 (76) 98 Capillary Refill : Less Than 3 Seconds General Appearance: No Apparent Distress, WD/WN, Obese, Other (pale) HEENT: PERRL/EOMI, Normal ENT Inspection, Pharynx Normal Neck: Full Range of Motion, Normal Inspection, Non Tender, Supple, Carotid Bruit Respiratory: Chest Non Tender, Lungs Clear, Normal Breath Sounds, No Accessory Muscle Use, No Respiratory Distress Cardiovascular: Regular Rate, Rhythm, No Edema, No Gallop, No JVD, No Murmur, Normal Peripheral Pulses Gastrointestinal: Normal Bowel Sounds, No Organomegaly, No Pulsatile Mass, Non Tender, Soft Back: Normal Inspection, No CVA Tenderness, No Vertebral Tenderness Extremity: Normal Capillary Refill, Normal Inspection, Normal Range of Motion (except right leg), Non Tender, No Calf Tenderness, No Pedal Edema Neurologic/Psychiatric: Alert, Oriented x3, No Motor/Sensory Deficits, Normal Mood/Affect, Motor Weakness (right leg) Skin: Normal Color, Warm/Dry Lymphatic: No Adenopathy Results/Procedures Lab Patient resulted labs reviewed. FIM Transfers Therapy Code Descriptions/Definitions Functional [place] Measure: 0=Not Assessed/NA 4=Minimal Assistance 1=Total Assistance 5=Supervision or Setup 2=Maximal Assistance 6=Modified [place] 3=Moderate Assistance 7=Complete IndependenceSCALE: Activities may be completed with or without assistive devices. 1-Xwipgquyfr-abpqqyu completes the activity by him/herself with no assistance from a helper. 5-Set-up or Clean-up Assistance-helper sets up or cleans up; patient completes activity. [place] assists only prior to or following the activity. 4-Supervision or Touching Assistance-helper provides verbal cues and/or touching/steadying and/or contact guard assistance as patient completes activity. Assistance may be provided throughout the activity or intermittently. 3-Partial/Moderate Assistance-helper does LESS THAN HALF the effort. [place] lifts, holds or supports trunk or limbs, but provides less than half the effort. 2-Substantial/Maximal Assistance-helper does MORE THAN HALF the effort. [place] lifts or holds trunk or limbs and provides more than half the effort. 7-Zwyqukgpe-wlxysj does ALL the effort. Patient does none of the effort to complete the activity. Or, the assistance of 2 or more helpers is required for the patient to complete the activity. If activity was not attempted, code reason: 7-Patient Refused. 9-Not Applicable-not attempted and the patient did not perform the activity before the current illness, exacerbation or injury. 10-Not Attempted due to Environmental Limitations-(lack of equipment, weather restraints, etc.). 88-Not Attempted due to Medical Conditions or Safety Concerns. Roll Left to Right (QC): 6 Sit to Lying (QC): 6 Sit to Stand (QC): 6 Chair/Qvy-de-Yuekh Xfer(QC): 6 Car Transfer (QC): 4 Gait Training Does the Patient Walk?: Yes Distance: 150'x2 Walk 10 feet (QC): 6 Walk 50 ft with 2 Turns(QC): 6 Walk 150 ft (QC): 6 Walking 10ft/uneven surface-QC: 4 Gait Persons Needed: 1 Gait Assistive Device: Walker Platform (bilateral) Wheelchair Training Does the Pt Use a Wheelchair?: No Wheel 50 ft with 2 turns (QC): 5 Wheel 150 ft (QC): 5 Stair Training 1 Step (curb) (QC): 88 4 Steps (QC): 88 12 Steps (QC): 88 Balance Picking up an Object (QC): 88 ADL-Treatment Eating (QC): 6 (Per clinical judgement, pt able to complete own meal set up and use regular utensils to eat.) Oral Hygiene (QC): 6 Shower/Bathe Self (QC): 6 Upper Body Dressing (QC): 6 Lower Body Dressing (QC): 6 On/Off Footwear (QC): 6 Toileting Hygiene (QC): 6 Toilet Transfer (QC): 6 Assessment/Plan Assessment and Plan Assess & Plan/Chief Complaint Assessment: s/p right distal hip fracture bucky breakage s/p revision 06/23/[address] [facility] [address] [facility] with removal of deep implant and replacement Morbid obesity BMI 47 RAY on CPAP Night time hypoxia DM with variable sugars Post op anemia due to acute blood loss HTN GERD Plan: IRF protocol Pain control Monitor hgb Iron infusions? 06/29/20: Midline Venofer Dr Sosa for wound vac management and is appreciated Pain control Monitor hypoglycemia 06/30/20: Decrease insulin and OHA Monitor pain Fall risk Wound vac 07/01/20: Pain control Added Toradol Monitor closely 07/02/20: Monitor pain Monitor sugars 07/03/20: Monitor sugars closely Wound vac 07/04/20: Monitor pain Wound vac per Dr Sosa Minimize insulin 07/05/20: Monitor sugar Wound vac Glucerna 07/06/20: Monitor sugars Wound vac DC Improved status (1) History of revision of total replacement of right hip joint (2) Diabetes (3) Obesity, morbid, BMI 50 or higher (4) RAY on CPAP RAHUL BRIDGES DO Jul 06, 2020 05:52
[2020-07-06 06:00] VITALS: BP 127/60
[2020-07-06] MEDS: inSUlin ASPART (NovoLOG) 1 UNIT/0.01 ML (CHARGE PER UNIT) SC SCH ×4 (06:00→21:00)
[2020-07-06] MEDS: LEVOTHYROXINE 75 MCG (LEVOTHROID) TABLET PO SCH (06:57)
[2020-07-06] MEDS: HYDROmorphone (DILAUDID) 2 MG TAB PO PRN ×2 (06:58→18:15)
[2020-07-06] MEDS: CYANOCOBALAMIN 1,000 MCG (VITAMIN B-12) TABLET PO SCH (09:33)
[2020-07-06] MEDS: FLUoxetine HCL 20 MG (PROzac) CAP PO SCH (09:33)
[2020-07-06] MEDS: ACETAMINOPHEN 500 MG TAB (TYLENOL) PO SCH ×3 (09:33→23:59)
[2020-07-06] MEDS: MULTIVIT W/MINERALS TAB (THERAGRAN M) PO SCH (09:33)
[2020-07-06] MEDS: FOLIC ACID 1 MG TAB PO SCH (09:33)
[2020-07-06] MEDS: ASPIRIN E.C. 81 MG (ECOTRIN) TAB PO SCH ×2 (09:33→20:58)
[2020-07-06] MEDS: NAPROXEN 250 MG (NAPROSYN) TABLET PO SCH ×2 (09:33→20:58)
[2020-07-06] MEDS: LACTOBACILLUS ACIDOPHILUS (PROBIOTIC) CAPSULE PO SCH (09:33)
[2020-07-06] MEDS: PANTOPRAZOLE 20 MG TABLET (PROTONIX) PO SCH (09:33)
[2020-07-06] MEDS: SENNA W/DOCUSATE (SENOKOT S) TABLET PO SCH ×2 (09:34→21:00)
[2020-07-06] MEDS: polyethylene glycoL POWDER 17 GM (MIRALAX) PACK PO SCH ×2 (09:34→21:00)
[2020-07-06] MEDS: CALCIUM CARBONATE 500 MG (TUMS) TAB.CHEW PO SCH (09:34)
[2020-07-06] MEDS: DOCUSATE SODIUM 100 MG (COLACE) CAP PO SCH ×2 (09:34→21:00)
[2020-07-06] MEDS: COLESTIPOL 1 GM (COLESTID) TAB PO SCH ×2 (09:35→21:06)
--- NOTE | 2020-07-06 11:22 | Physical Therapy Daily Note ---
PT Daily Note-Current Subjective Pt in BR upon arrival. Pt agrees to PT. Mental Status Patient Orientation: Person, Place, Time, Situation Attachments: Other-See Comments (L Knee Immobilizer) Transfers SCALE: Activities may be completed with or without assistive devices. 0-Yzncssuzwk-wwrdkhn completes the activity by him/herself with no assistance from a helper. 5-Set-up or Clean-up Assistance-helper sets up or cleans up; patient completes activity. [place] assists only prior to or following the activity. 4-Supervision or Touching Assistance-helper provides verbal cues and/or touching/steadying and/or contact guard assistance as patient completes activity. Assistance may be provided throughout the activity or intermittently. 3-Partial/Moderate Assistance-helper does LESS THAN HALF the effort. [place] lifts, holds or supports trunk or limbs, but provides less than half the effort. 2-Substantial/Maximal Assistance-helper does MORE THAN HALF the effort. [place] lifts or holds trunk or limbs and provides more than half the effort. 4-Urbjfemuv-gyqrij does ALL the effort. Patient does none of the effort to complete the activity. Or, the assistance of 2 or more helpers is required for the patient to complete the activity. If activity was not attempted, code reason: 7-Patient Refused. 9-Not Applicable-not attempted and the patient did not perform the activity before the current illness, exacerbation or injury. 10-Not Attempted due to Environmental Limitations-(lack of equipment, weather restraints, etc.). 88-Not Attempted due to Medical Conditions or Safety Concerns. Sit to Stand (QC): 6 Toilet Transfer (QC): 6 Weight Bearing Right Lower Extremity: Right Touch Toe Bearing right knee immobilizer on with activity, she can have it off when in bed or in recliner with legs elevated Gait Training Does the Patient Walk?: Yes Distance: 150' x2 Walk 10 feet (QC): 5 Walk 50 ft with 2 Turns(QC): 5 Walk 150 ft (QC): 5 Gait Persons Needed: 1 Gait Assistive Device: Walker Platform Wheelchair Training Does the Pt Use a Wheelchair?: Yes Type of Wheelchair: Manual Exercises Standing: Sit to Stand, Unilateral stance NuStep Minutes: 21 NuStep Workload: 5 Treatments TF to standing and amb. in hallway. Pt completes hip Flexion & Extension as well as uses NuStep for 21m at 5. Pt returns to room to rest with all needs met, call light in hand. Assessment Current Status: Good Progress Pt shaw. tx well. PT Short Term Goals Short Term Goals Time Frame: Jul 05, 2020 Roll Left & Right: 6 Sit to lyin Lying to sitting on side of be: 6 Sit to stand: 6 Chair/gzt-fm-boqqe transfer: 5 Walk 10 feet: 5 Walk 50 feet with two turns: 5 Walk 150 feet: 5 PT Fdc Goals Fdc Goals PT Spreader Operator Goals Time Frame: Jul 19, 2020 Roll Left & Right (QC): 6 Sit to Lying (QC): 6 Lying-Sitting on Side/Bed(QC): 6 Sit to Stand (QC): 6 Chair/Rdk-yo-Fvrfr Xfer(QC): 6 Toilet Transfer (QC): 6 Car Transfer (QC): 6 Does the Patient Walk: Yes Walk 10 feet (QC): 6 Walk 50ft with 2 Turns (QC): 6 Walk 150 ft (QC): 6 Walking 10ft on Uneven Surface: 6 1 Step (curb) (QC): 6 4 Steps (QC): 3 12 Steps (QC): 88 Picking up an Object (QC): 88 Wheel 50 feet with 2 turns (QC: 9 Wheel 150 feet: 9 PT Plan Treatment/Plan Treatment Plan: Continue Plan of Care Treatment Plan: Bed Mobility, Education, Functional Activity Zoë, Functional Strength, Group Therapy, Gait, Safety, Therapeutic Exercise, Transfers Treatment Duration: Jul 19, 2020 Frequency: At least 5 of 7 days/Wk (IRF) Estimated Hrs Per Day: 1.5 hours per day Patient and/or Family Agrees t: Yes Time/GCodes Time In: 900 Time Out: 945 Total Billed Treatment Time: 45 Total Billed Treatment 1, GT (20m) & EX x2 (25m) ISMAEL BEARD PLAYGROUND DIRECTOR Jul 06, 2020 11:22
--- NOTE | 2020-07-06 11:53 | Occupational Ther Daily Note ---
OT Current Status-Daily Note Subjective Pt alert, sitting in recliner. Pt agrees to therapy. No c/o pain. Mental Status/Objective Patient Orientation: Person, Place, Time, Situation Attachments: IV, Other-See Comments (knee immobilizer) ADL-Treatment Using platform walker, pt is able to ambulate to bathroom and transfer to toilet and complete toileting independently. Pt completes shower independently using grabbars, shower bench and hand held shower. Pt is able to complete all dressing independently. Pt completes oral care sitting at sink independently. Pt takes increase time to complete all tasks. Therapy Code Descriptions/Definitions Functional [place] Measure: 0=Not Assessed/NA 4=Minimal Assistance 1=Total Assistance 5=Supervision or Setup 2=Maximal Assistance 6=Modified [place] 3=Moderate Assistance 7=Complete IndependenceSCALE: Activities may be completed with or without assistive devices. 1-Zhqzvluoak-lflgdsq completes the activity by him/herself with no assistance from a helper. 5-Set-up or Clean-up Assistance-helper sets up or cleans up; patient completes activity. [place] assists only prior to or following the activity. 4-Supervision or Touching Assistance-helper provides verbal cues and/or touching/steadying and/or contact guard assistance as patient completes activity. Assistance may be provided throughout the activity or intermittently. 3-Partial/Moderate Assistance-helper does LESS THAN HALF the effort. [place] lifts, holds or supports trunk or limbs, but provides less than half the effort. 2-Substantial/Maximal Assistance-helper does MORE THAN HALF the effort. [place] lifts or holds trunk or limbs and provides more than half the effort. 4-Uebmwyexi-jehbuy does ALL the effort. Patient does none of the effort to complete the activity. Or, the assistance of 2 or more helpers is required for the patient to complete the activity. If activity was not attempted, code reason: 7-Patient Refused. 9-Not Applicable-not attempted and the patient did not perform the activity before the current illness, exacerbation or injury. 10-Not Attempted due to Environmental Limitations-(lack of equipment, weather restraints, etc.). 88-Not Attempted due to Medical Conditions or Safety Concerns. Oral Hygiene (QC): 6 Shower/Bathe Self (QC): 6 Upper Body Dressing (QC): 6 Lower Body Dressing (QC): 6 On/Off Footwear: 6 Toileting Hygiene (QC): 6 Toilet Transfer (QC): 6 Other Treatment Pt ambulates with platform walker to therapy gym to complete B UE strengthening to increase strength and activity tolerance for daily functional tasks. Arm bike 15 min at 25 bravo resistance. After session, pt sitting in recliner with call light/phone in reach. All needs met in room. OT Short Term Goals Short Term Goals Time Frame: Jul 05, 2020 Oral hygiene: 5 Toileting hygiene: 5 Shower/bathe self: 5 Lower body dressin OT Favor Maker Goals Favor Maker Goals Time Frame: Jul 14, 2020 Eating (QC): 6 (met) Oral Hygiene (QC): 6 (met) Toileting Hygiene (QC): 6 (met) Shower/Bathe Self (QC): 6 (met) Upper Body Dressing (QC): 6 (met) Lower Body Dressing (QC): 6 (met) On/Off Footwear (QC): 6 (met) Additional Goals: 1-Demonstrate ADL Tasks, 2-Verbalize Understanding, 3-ImproveStrength/Zoë 1=Demonstrate adherence to instructed precautions during ADL tasks. 2=Patient will verbalize/demonstrate understanding of assistive devices/modifications for ADL. 3=Patient will improve strength/tolerance for activity to enable patient to perform ADL's. OT Education/Plan Discharge Recommendations Plan/Recommendations: Continue POC Treatment Plan/Plan of Care Patient would benefit from OT for education, treatment and training to promote independence in ADL's, mobility, safety and/or upper extremity function for ADL's. Plan of Care: ADL Retraining, Functional Mobility, Group Exercise/Act as Ind, UE Funct Exercise/Act Treatment Duration: Jul 14, 2020 Frequency: At least 5 of 7 days/Wk (IRF) Estimated Hrs Per Day: 1.5 hours per day Agreement: Yes Rehab Potential: Fair Time/GCodes Start Time: 10:20 Stop Time: 11:50 Total Time Billed (hr/min): 90 Billed Treatment Time 1 visit-ADL 5 (75 min) EX 1 (15 min) AGUILAR MAYFIELD Jul 06, 2020 11:53
--- NOTE | 2020-07-06 16:24 | Physical Therapy Daily Note ---
PT Daily Note-Current Subjective Pt sitting in [facility] in room upon arrival. Pt agrees to PT. Pain Location: No Pain Reported Mental Status Patient Orientation: Person, Place, Time, Situation Attachments: Other-See Comments (L knee immobilizer) Transfers SCALE: Activities may be completed with or without assistive devices. 2-Ugoulhqcnj-xdtuyji completes the activity by him/herself with no assistance from a helper. 5-Set-up or Clean-up Assistance-helper sets up or cleans up; patient completes activity. [place] assists only prior to or following the activity. 4-Supervision or Touching Assistance-helper provides verbal cues and/or touching/steadying and/or contact guard assistance as patient completes activity. Assistance may be provided throughout the activity or intermittently. 3-Partial/Moderate Assistance-helper does LESS THAN HALF the effort. [place] lifts, holds or supports trunk or limbs, but provides less than half the effort. 2-Substantial/Maximal Assistance-helper does MORE THAN HALF the effort. [place] lifts or holds trunk or limbs and provides more than half the effort. 4-Eyopbsjyw-fosvvh does ALL the effort. Patient does none of the effort to complete the activity. Or, the assistance of 2 or more helpers is required for the patient to complete the activity. If activity was not attempted, code reason: 7-Patient Refused. 9-Not Applicable-not attempted and the patient did not perform the activity before the current illness, exacerbation or injury. 10-Not Attempted due to Environmental Limitations-(lack of equipment, weather restraints, etc.). 88-Not Attempted due to Medical Conditions or Safety Concerns. Sit to Stand (QC): 6 Toilet Transfer (QC): 6 Weight Bearing Right Lower Extremity: Right Touch Toe Bearing right knee immobilizer on with activity, she can have it off when in bed or in recliner with legs elevated Wheelchair Training Does the Pt Use a Wheelchair?: Yes Wheel 50 ft with 2 turns (QC): 6 Wheel 150 ft (QC): 6 Type of Wheelchair: Manual Treatments Pt takes self to to BR and is made Ad bradley in room. Nurse aware and agrees. Pt asks to propels [facility] in hallway and to leave ARU for tx for change of scenery. Pt propels [facility] community distances and returns to room at end of tx. All needs met. Assessment Current Status: Good Progress Pt shaw. tx well. PT Short Term Goals Short Term Goals Time Frame: Jul 05, 2020 Roll Left & Right: 6 Sit to lyin Lying to sitting on side of be: 6 Sit to stand: 6 Chair/rjk-bg-ofelk transfer: 5 Walk 10 feet: 5 Walk 50 feet with two turns: 5 Walk 150 feet: 5 PT Senior Living Goals Cctv Technician Goals PT Cctv Technician Goals Time Frame: Jul 19, 2020 Roll Left & Right (QC): 6 Sit to Lying (QC): 6 Lying-Sitting on Side/Bed(QC): 6 Sit to Stand (QC): 6 Chair/Xfg-fq-Eompr Xfer(QC): 6 Toilet Transfer (QC): 6 Car Transfer (QC): 6 Does the Patient Walk: Yes Walk 10 feet (QC): 6 Walk 50ft with 2 Turns (QC): 6 Walk 150 ft (QC): 6 Walking 10ft on Uneven Surface: 6 1 Step (curb) (QC): 6 4 Steps (QC): 3 12 Steps (QC): 88 Picking up an Object (QC): 88 Wheel 50 feet with 2 turns (QC: 9 Wheel 150 feet: 9 PT Plan Treatment/Plan Treatment Plan: Continue Plan of Care Treatment Plan: Bed Mobility, Education, Functional Activity Zoë, Functional Strength, Group Therapy, Gait, Safety, Therapeutic Exercise, Transfers Treatment Duration: Jul 19, 2020 Frequency: At least 5 of 7 days/Wk (IRF) Estimated Hrs Per Day: 1.5 hours per day Patient and/or Family Agrees t: Yes Time/GCodes Time In: 1445 Time Out: 1530 Total Billed Treatment Time: 45 Total Billed Treatment 1, FA (10m) & [facility] x 2 (35m) ISMAEL BEARD BUYER BROKER Jul 06, 2020 16:24
[2020-07-06 18:47] VITALS: BP 116/57
[2020-07-06] MEDS: LORATADINE (CLARITIN) 10 MG TAB PO SCH (20:59)
[2020-07-06] MEDS: CYCLOBENZAPRINE 10 MG (FLEXERIL) TAB PO PRN (21:05)
[2020-07-07] MEDS: inSUlin ASPART (NovoLOG) 1 UNIT/0.01 ML (CHARGE PER UNIT) SC SCH ×4 (05:40→20:28)
[2020-07-07] MEDS: LEVOTHYROXINE 75 MCG (LEVOTHROID) TABLET PO SCH (06:13)
[2020-07-07] MEDS: HYDROmorphone (DILAUDID) 2 MG TAB PO PRN ×3 (06:13→21:13)
[2020-07-07 06:27] VITALS: BP 104/53
[2020-07-07] MEDS: ACETAMINOPHEN 500 MG TAB (TYLENOL) PO SCH ×3 (06:32→23:46)
[2020-07-07] MEDS: FLUoxetine HCL 20 MG (PROzac) CAP PO SCH (08:23)
[2020-07-07] MEDS: MULTIVIT W/MINERALS TAB (THERAGRAN M) PO SCH (08:24)
[2020-07-07] MEDS: LACTOBACILLUS ACIDOPHILUS (PROBIOTIC) CAPSULE PO SCH (08:24)
[2020-07-07] MEDS: polyethylene glycoL POWDER 17 GM (MIRALAX) PACK PO SCH ×2 (08:24→19:49)
[2020-07-07] MEDS: CYANOCOBALAMIN 1,000 MCG (VITAMIN B-12) TABLET PO SCH (08:24)
[2020-07-07] MEDS: NAPROXEN 250 MG (NAPROSYN) TABLET PO SCH ×2 (08:24→21:13)
[2020-07-07] MEDS: ASPIRIN E.C. 81 MG (ECOTRIN) TAB PO SCH ×2 (08:24→21:13)
[2020-07-07] MEDS: CALCIUM CARBONATE 500 MG (TUMS) TAB.CHEW PO SCH (08:24)
[2020-07-07] MEDS: DOCUSATE SODIUM 100 MG (COLACE) CAP PO SCH ×3 (08:24→19:49)
[2020-07-07] MEDS: PANTOPRAZOLE 20 MG TABLET (PROTONIX) PO SCH (08:24)
[2020-07-07] MEDS: FOLIC ACID 1 MG TAB PO SCH (08:24)
[2020-07-07] MEDS: COLESTIPOL 1 GM (COLESTID) TAB PO SCH ×2 (08:56→21:13)
--- NOTE | 2020-07-07 08:57 | Physical Therapy Daily Note ---
PT Daily Note-Current Subjective No c/o pain. States she is very happy with her progress. Agrees to Rx. Pain Location: No Pain Reported Mental Status Patient Orientation: Normal For Age Attachments: Other-See Comments (knee immoblizer RLE) Transfers SCALE: Activities may be completed with or without assistive devices. 4-Ubasfkexok-sgqfwpg completes the activity by him/herself with no assistance from a helper. 5-Set-up or Clean-up Assistance-helper sets up or cleans up; patient completes activity. [place] assists only prior to or following the activity. 4-Supervision or Touching Assistance-helper provides verbal cues and/or touching/steadying and/or contact guard assistance as patient completes activity. Assistance may be provided throughout the activity or intermittently. 3-Partial/Moderate Assistance-helper does LESS THAN HALF the effort. [place] lifts, holds or supports trunk or limbs, but provides less than half the effort. 2-Substantial/Maximal Assistance-helper does MORE THAN HALF the effort. [place] lifts or holds trunk or limbs and provides more than half the effort. 1-Igasohlyi-jddykq does ALL the effort. Patient does none of the effort to complete the activity. Or, the assistance of 2 or more helpers is required for the patient to complete the activity. If activity was not attempted, code reason: 7-Patient Refused. 9-Not Applicable-not attempted and the patient did not perform the activity before the current illness, exacerbation or injury. 10-Not Attempted due to Environmental Limitations-(lack of equipment, weather restraints, etc.). 88-Not Attempted due to Medical Conditions or Safety Concerns. Roll Left & Right (QC): 6 Sit to Lying (QC): 6 Lying to Sitting/Side of Bed(Q: 6 Sit to Stand (QC): 6 Chair/Ntt-bg-Slvgu Xfer(QC): 6 Toilet Transfer (QC): 6 Weight Bearing Right Lower Extremity: Right Touch Toe Bearing right knee immobilizer on with activity, she can have it off when in bed or in recliner with legs elevated Gait Training Does the Patient Walk?: Yes Walk 10 feet (QC): 5 Walk 50 ft with 2 Turns(QC): 5 Walk 150 ft (QC): 5 Gait Persons Needed: 1 Gait Assistive Device: Walker Platform 200ft x 4 SBA, no LOB Wheelchair Training Does the Pt Use a Wheelchair?: Yes Wheel 50 ft with 2 turns (QC): 6 Type of Wheelchair: Manual Exercises Supine Ex: Ankle pumps, Quad Set, Rolling, Glut sets, Heel Slides (left), Short Arc Quads (left), Scooting, Straight leg raise, Hip abd/add (left) Supine Reps: 20 Standing: Heel/toe raises, 3 way Ex=Flex, Abd, Ext (no abd, ex right only) Standing Reps: 15 NuStep Minutes: 8 NuStep Workload: 5 Assessment Current Status: Good Progress PT Short Term Goals Short Term Goals Time Frame: Jul 05, 2020 Roll Left & Right: 6 Sit to lyin Lying to sitting on side of be: 6 Sit to stand: 6 Chair/xjv-mj-eejci transfer: 5 Walk 10 feet: 5 Walk 50 feet with two turns: 5 Walk 150 feet: 5 PT Detention Goals Detention Goals PT Detention Goals Time Frame: Jul 19, 2020 Roll Left & Right (QC): 6 Sit to Lying (QC): 6 Lying-Sitting on Side/Bed(QC): 6 Sit to Stand (QC): 6 Chair/Eoo-ze-Zwywd Xfer(QC): 6 Toilet Transfer (QC): 6 Car Transfer (QC): 6 Does the Patient Walk: Yes Walk 10 feet (QC): 6 Walk 50ft with 2 Turns (QC): 6 Walk 150 ft (QC): 6 Walking 10ft on Uneven Surface: 6 1 Step (curb) (QC): 6 4 Steps (QC): 3 12 Steps (QC): 88 Picking up an Object (QC): 88 Wheel 50 feet with 2 turns (QC: 9 Wheel 150 feet: 9 PT Plan Treatment/Plan Treatment Plan: Continue Plan of Care Treatment Plan: Bed Mobility, Education, Functional Activity Zoë, Functional Strength, Group Therapy, Gait, Safety, Therapeutic Exercise, Transfers Treatment Duration: Jul 19, 2020 Frequency: At least 5 of 7 days/Wk (IRF) Estimated Hrs Per Day: 1.5 hours per day Patient and/or Family Agrees t: Yes Safety Risks/Education Patient Education: Gait Training, Transfer Techniques, Correct Positioning, Disease Process, Safety Issues Teaching Recipient: Patient Teaching Methods: Demonstration, Discussion Response to Teaching: Verbalize Understanding, Return Demonstration, Reinforcement Needed Time/GCodes Time In: 800 Time Out: 900 Total Billed Treatment Time: 60 Total Billed Treatment 1,EX40m,GT20m MICHELLE ROSADO 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
[2020-07-07] MEDS: IRON SUCROSE 200 MG/10 ML (VENOFER) VIAL IV SCH (09:01)
--- NOTE | 2020-07-07 10:24 | PM&R Progress Note ---
Subjective HPI/CC On Admission Date Seen by Provider: Jul 07, 2020 Time Seen by Provider: 10:30 Subjective/Events-last exam 07/07/20: Monitor closely Sugars are reviewed Pain is good DC planned for Friday07/06/20: No major issues DC planned for Friday Wound vac DC. Reviewed sugars 07/05/20: Pt doing very well Blood sugars reviewed Pain is controlled Wound-vac will be changed to portable if okay with Dr. Sosa 07/04/20: Doing pretty well Blood sugars stable Wound vac in place No significant new issues 07/03/20: Pt very anxious Blood sugar good at 149 Denies any significant new issues Pain is controlled Participating in therapy Wound-vac changed per protocol 07/02/20: In much better mood today Pain is controlled Toradol only given once BM+ Sugars 150's improved no hypoglycemia 07/01/20: Patient having a lot of pain currently so we gave pain meds and Xanax and Toradol was ordered Venofer fell and spilled on floor Sugars are improved Monitoring closely 06/30/20: Decreasing Levemir and OHA Hypoglycemia noted Accuchecks prn ordered Monitoring closely Wound vac changed to ours and doing well 06/29/20: Wound vac management graciously accepted by Dr Sosa Midline will be placed for additional iron infusions Vit B12 maintained also Hgb stable at 8.6 Pain controlled Sugar low this am so will monitor that closely Review of Systems Musculoskeletal: leg pain Objective Exam Vital Signs Vital Signs Date Time Temp Pulse Resp B/P (MAP) Pulse Ox O2 Delivery O2 Flow Rate FiO2 07/07/20 20:30 Room Air 07/07/20 17:15 36.8 73 16 122/60 (80) 95 Capillary Refill : Less Than 3 Seconds General Appearance: No Apparent Distress, WD/WN, Obese, Other (pale) HEENT: PERRL/EOMI, Normal ENT Inspection, Pharynx Normal Neck: Full Range of Motion, Normal Inspection, Non Tender, Supple, Carotid Bruit Respiratory: Chest Non Tender, Lungs Clear, Normal Breath Sounds, No Accessory Muscle Use, No Respiratory Distress Cardiovascular: Regular Rate, Rhythm, No Edema, No Gallop, No JVD, No Murmur, Normal Peripheral Pulses Gastrointestinal: Normal Bowel Sounds, No Organomegaly, No Pulsatile Mass, Non Tender, Soft Back: Normal Inspection, No CVA Tenderness, No Vertebral Tenderness Extremity: Normal Capillary Refill, Normal Inspection, Normal Range of Motion (except right leg), Non Tender, No Calf Tenderness, No Pedal Edema Neurologic/Psychiatric: Alert, Oriented x3, No Motor/Sensory Deficits, Normal Mood/Affect, Motor Weakness (right leg) Skin: Normal Color, Warm/Dry Lymphatic: No Adenopathy Results/Procedures Lab Patient resulted labs reviewed. FIM Transfers Therapy Code Descriptions/Definitions Functional [place] Measure: 0=Not Assessed/NA 4=Minimal Assistance 1=Total Assistance 5=Supervision or Setup 2=Maximal Assistance 6=Modified [place] 3=Moderate Assistance 7=Complete IndependenceSCALE: Activities may be completed with or without assistive devices. 4-Pqsewpzlmk-thnymab completes the activity by him/herself with no assistance from a helper. 5-Set-up or Clean-up Assistance-helper sets up or cleans up; patient completes activity. [place] assists only prior to or following the activity. 4-Supervision or Touching Assistance-helper provides verbal cues and/or touching/steadying and/or contact guard assistance as patient completes activity. Assistance may be provided throughout the activity or intermittently. 3-Partial/Moderate Assistance-helper does LESS THAN HALF the effort. [place] lifts, holds or supports trunk or limbs, but provides less than half the effort. 2-Substantial/Maximal Assistance-helper does MORE THAN HALF the effort. [place] lifts or holds trunk or limbs and provides more than half the effort. 4-Scqxoaaxx-xptrzp does ALL the effort. Patient does none of the effort to complete the activity. Or, the assistance of 2 or more helpers is required for the patient to complete the activity. If activity was not attempted, code reason: 7-Patient Refused. 9-Not Applicable-not attempted and the patient did not perform the activity before the current illness, exacerbation or injury. 10-Not Attempted due to Environmental Limitations-(lack of equipment, weather restraints, etc.). 88-Not Attempted due to Medical Conditions or Safety Concerns. Roll Left to Right (QC): 6 Sit to Lying (QC): 6 Sit to Stand (QC): 6 Chair/Djp-qf-Tqqqx Xfer(QC): 6 Car Transfer (QC): 4 Gait Training Does the Patient Walk?: Yes Distance: 150' x2 Walk 10 feet (QC): 5 Walk 50 ft with 2 Turns(QC): 5 Walk 150 ft (QC): 5 Walking 10ft/uneven surface-QC: 4 Gait Persons Needed: 1 Gait Assistive Device: Walker Platform Wheelchair Training Does the Pt Use a Wheelchair?: Yes Wheel 50 ft with 2 turns (QC): 6 Wheel 150 ft (QC): 6 Type of Wheelchair: Manual Stair Training 1 Step (curb) (QC): 88 4 Steps (QC): 88 12 Steps (QC): 88 Balance Picking up an Object (QC): 88 ADL-Treatment Eating (QC): 6 (Per clinical judgement, pt able to complete own meal set up and use regular utensils to eat.) Oral Hygiene (QC): 6 Shower/Bathe Self (QC): 6 Upper Body Dressing (QC): 6 Lower Body Dressing (QC): 6 On/Off Footwear (QC): 6 Toileting Hygiene (QC): 6 Toilet Transfer (QC): 6 Assessment/Plan Assessment and Plan Assess & Plan/Chief Complaint Assessment: s/p right distal hip fracture bucky breakage s/p revision 06/23/[address] [place] [address] Randhawa with removal of deep implant and replacement Morbid obesity BMI 47 RAY on CPAP Night time hypoxia DM with variable sugars Post op anemia due to acute blood loss HTN GERD Plan: IRF protocol Pain control Monitor hgb Iron infusions? 06/29/20: Midline Venofer Dr Sosa for wound vac management and is appreciated Pain control Monitor hypoglycemia 06/30/20: Decrease insulin and OHA Monitor pain Fall risk Wound vac 07/01/20: Pain control Added Toradol Monitor closely 07/02/20: Monitor pain Monitor sugars 07/03/20: Monitor sugars closely Wound vac 07/04/20: Monitor pain Wound vac per Dr Sosa Minimize insulin 07/05/20: Monitor sugar Wound vac Glucerna 07/06/20: Monitor sugars Wound vac DC Improved status 07/07/20: Monitor closely Sugars reviewed Pain meds (1) History of revision of total replacement of right hip joint (2) Diabetes (3) Obesity, morbid, BMI 50 or higher (4) RAY on CPAP RAHUL BRIDGES DO Jul 07, 2020 10:24
[2020-07-07] MEDS: SENNA W/DOCUSATE (SENOKOT S) TABLET PO SCH ×2 (11:31→19:49)
[2020-07-07] MEDS: VITAMIN D2 1.25 MG (50,000 UNITS) CAP PO SCH (11:47)
--- NOTE | 2020-07-07 11:57 | Occupational Ther Daily Note ---
OT Current Status-Daily Note Subjective Pt alert, lying in bed. Pt up ad bradley in room. Pt agrees to therapy. Increase redness at one incision site on R upper thigh, reported to nrsg. Mental Status/Objective Patient Orientation: Person, Place, Time, Situation Attachments: IV ADL-Treatment Pt takes increased time to complete ADLs. Pt independent with shower using long handle sponge, grabbars, hand held shower and shower bench. Pt independent with all dressing. Pt independent donning/doffing knee immobilizer. Independent with eating and oral care (sitting at sink). Independent for all functional transfers. After session, pt sitting in recliner with call light/phone in reach. All needs met in room. Therapy Code Descriptions/Definitions Functional [place] Measure: 0=Not Assessed/NA 4=Minimal Assistance 1=Total Assistance 5=Supervision or Setup 2=Maximal Assistance 6=Modified [place] 3=Moderate Assistance 7=Complete IndependenceSCALE: Activities may be completed with or without assistive devices. 0-Amyotvlxzl-iuffhvr completes the activity by him/herself with no assistance from a helper. 5-Set-up or Clean-up Assistance-helper sets up or cleans up; patient completes activity. [place] assists only prior to or following the activity. 4-Supervision or Touching Assistance-helper provides verbal cues and/or touching/steadying and/or contact guard assistance as patient completes activity. Assistance may be provided throughout the activity or intermittently. 3-Partial/Moderate Assistance-helper does LESS THAN HALF the effort. [place] lifts, holds or supports trunk or limbs, but provides less than half the effort. 2-Substantial/Maximal Assistance-helper does MORE THAN HALF the effort. [place] lifts or holds trunk or limbs and provides more than half the effort. 1-Gubbrtrxr-ilzfti does ALL the effort. Patient does none of the effort to complete the activity. Or, the assistance of 2 or more helpers is required for the patient to complete the activity. If activity was not attempted, code reason: 7-Patient Refused. 9-Not Applicable-not attempted and the patient did not perform the activity before the current illness, exacerbation or injury. 10-Not Attempted due to Environmental Limitations-(lack of equipment, weather restraints, etc.). 88-Not Attempted due to Medical Conditions or Safety Concerns. Eating (QC): 6 Oral Hygiene (QC): 6 Shower/Bathe Self (QC): 6 Upper Body Dressing (QC): 6 Lower Body Dressing (QC): 6 On/Off Footwear: 6 Toileting Hygiene (QC): 6 Toilet Transfer (QC): 6 OT Short Term Goals Short Term Goals Time Frame: Jul 05, 2020 Oral hygiene: 5 Toileting hygiene: 5 Shower/bathe self: 5 Lower body dressin OT Care Home Goals Care Home Goals Time Frame: Jul 14, 2020 Eating (QC): 6 (met) Oral Hygiene (QC): 6 (met) Toileting Hygiene (QC): 6 (met) Shower/Bathe Self (QC): 6 (met) Upper Body Dressing (QC): 6 (met) Lower Body Dressing (QC): 6 (met) On/Off Footwear (QC): 6 (met) Additional Goals: 1-Demonstrate ADL Tasks, 2-Verbalize Understanding, 3- ImproveStrength/Zoë 1=Demonstrate adherence to instructed precautions during ADL tasks. 2=Patient will verbalize/demonstrate understanding of assistive devices/modifications for ADL. 3=Patient will improve strength/tolerance for activity to enable patient to perform ADL's. OT Education/Plan Discharge Recommendations Plan/Recommendations: Continue POC Treatment Plan/Plan of Care Patient would benefit from OT for education, treatment and training to promote independence in ADL's, mobility, safety and/or upper extremity function for ADL's. Plan of Care: ADL Retraining, Functional Mobility, Group Exercise/Act as Ind, UE Funct Exercise/Act Treatment Duration: Jul 14, 2020 Frequency: At least 5 of 7 days/Wk (IRF) Estimated Hrs Per Day: 1.5 hours per day Agreement: Yes Rehab Potential: Fair Time/GCodes Start Time: 10:30 Stop Time: 12:00 Total Time Billed (hr/min): 90 Billed Treatment Time 1 visit-ADL 6 (90 min) AGUILAR MAYFIELD Jul 07, 2020 11:57
--- NOTE | 2020-07-07 13:26 | Physical Therapy Daily Note ---
PT Daily Note-Current Subjective Pt. agrees to Rx. Pain Location: No Pain Reported Mental Status Patient Orientation: Normal For Age Attachments: Other-See Comments (right knee immoblizer) Transfers SCALE: Activities may be completed with or without assistive devices. 2-Fkjahfidgm-xtqtuss completes the activity by him/herself with no assistance from a helper. 5-Set-up or Clean-up Assistance-helper sets up or cleans up; patient completes activity. [place] assists only prior to or following the activity. 4-Supervision or Touching Assistance-helper provides verbal cues and/or touching/steadying and/or contact guard assistance as patient completes activity. Assistance may be provided throughout the activity or intermittently. 3-Partial/Moderate Assistance-helper does LESS THAN HALF the effort. [place] lifts, holds or supports trunk or limbs, but provides less than half the effort. 2-Substantial/Maximal Assistance-helper does MORE THAN HALF the effort. [place] l ifts or holds trunk or limbs and provides more than half the effort. 4-Zpmdqlcgm-bpezfx does ALL the effort. Patient does none of the effort to complete the activity. Or, the assistance of 2 or more helpers is required for the patient to complete the activity. If activity was not attempted, code reason: 7-Patient Refused. 9-Not Applicable-not attempted and the patient did not perform the activity before the current illness, exacerbation or injury. 10-Not Attempted due to Environmental Limitations-(lack of equipment, weather restraints, etc.). 88-Not Attempted due to Medical Conditions or Safety Concerns. Car Transfer (QC): 6 sit to stand and sup to sit and sit to sup all indep, pt trialed car TRF with instruction was indep Weight Bearing Right Lower Extremity: Right Touch Toe Bearing right knee immobilizer on with activity, she can have it off when in bed or in recliner with legs elevated Gait Training Does the Patient Walk?: Yes Gait Assistive Device: Walker Platform 200ft, [id number] SBA, no maru LOB, maintains TTWB ing well Exercises Supine Ex: Ankle pumps, Quad Set, Glut sets, Heel Slides, Short Arc Quads, S traight leg raise, Hip abd/add Supine Reps: 15 PT Short Term Goals Short Term Goals Time Frame: Jul 05, 2020 Roll Left & Right: 6 Sit to lyin Lying to sitting on side of be: 6 Sit to stand: 6 Chair/zgc-ck-cyoli transfer: 5 Walk 10 feet: 5 Walk 50 feet with two turns: 5 Walk 150 feet: 5 PT Assisted Goals Assisted Goals PT [employer] Analyst Goals Time Frame: Jul 19, 2020 Roll Left & Right (QC): 6 Sit to Lying (QC): 6 Lying-Sitting on Side/Bed(QC): 6 Sit to Stand (QC): 6 Chair/Uay-nn-Fzcut Xfer(QC): 6 Toilet Transfer (QC): 6 Car Transfer (QC): 6 Does the Patient Walk: Yes Walk 10 feet (QC): 6 Walk 50ft with 2 Turns (QC): 6 Walk 150 ft (QC): 6 Walking 10ft on Uneven Surface: 6 1 Step (curb) (QC): 6 4 Steps (QC): 3 12 Steps (QC): 88 Picking up an Object (QC): 88 Wheel 50 feet with 2 turns (QC: 9 Wheel 150 feet: 9 PT Plan Treatment/Plan Treatment Plan: Continue Plan of Care Treatment Plan: Bed Mobility, Education, Functional Activity [place], Functional Strength, Group Therapy, Gait, Safety, Therapeutic Exercise, Transfers Treatment Duration: Jul 19, 2020 Frequency: At least 5 of 7 days/Wk (IRF) Estimated Hrs Per Day: 1.5 hours per day Patient and/or Family Agrees t: Yes Safety Risks/Education Patient Education: Gait Training, Transfer Techniques, Correct Positioning, Disease Process, Safety Issues Teaching Recipient: Patient Teaching Methods: Demonstration, Discussion Response to Teaching: Verbalize Understanding, Return Demonstration, Reinforcement Needed Time/GCodes Time In: 1300 Time Out: 1330 Total Billed Treatment Time: 30 Total Billed Treatment 1,FA15m,EX15m MICHELLE ROSADO [employer] FEEDER Jul 07, 2020 13:26
[2020-07-07 17:15] VITALS: BP 122/60
[2020-07-07] MEDS: CEPHALEXIN 250 MG (KEFLEX) CAP PO SCH (21:12)
[2020-07-07] MEDS: CYCLOBENZAPRINE 10 MG (FLEXERIL) TAB PO PRN (21:12)
[2020-07-07] MEDS: LORATADINE (CLARITIN) 10 MG TAB PO SCH (21:13)
[2020-07-08] MEDS: HYDROmorphone (DILAUDID) 2 MG TAB PO PRN ×4 (01:44→19:16)
[2020-07-08] MEDS: inSUlin ASPART (NovoLOG) 1 UNIT/0.01 ML (CHARGE PER UNIT) SC SCH ×4 (05:56→21:46)
[2020-07-08 06:08] VITALS: BP 123/58
[2020-07-08] MEDS: CEPHALEXIN 250 MG (KEFLEX) CAP PO SCH ×3 (06:52→21:57)
[2020-07-08] MEDS: LEVOTHYROXINE 75 MCG (LEVOTHROID) TABLET PO SCH (06:52)
[2020-07-08] MEDS: ACETAMINOPHEN 500 MG TAB (TYLENOL) PO SCH ×3 (06:53→23:45)
[2020-07-08] MEDS: CYANOCOBALAMIN 1,000 MCG (VITAMIN B-12) TABLET PO SCH (08:40)
[2020-07-08] MEDS: COLESTIPOL 1 GM (COLESTID) TAB PO SCH ×2 (08:40→21:45)
[2020-07-08] MEDS: ASPIRIN E.C. 81 MG (ECOTRIN) TAB PO SCH ×2 (08:40→21:56)
[2020-07-08] MEDS: LACTOBACILLUS ACIDOPHILUS (PROBIOTIC) CAPSULE PO SCH (08:40)
[2020-07-08] MEDS: MULTIVIT W/MINERALS TAB (THERAGRAN M) PO SCH (08:41)
[2020-07-08] MEDS: NAPROXEN 250 MG (NAPROSYN) TABLET PO SCH ×2 (08:41→21:46)
[2020-07-08] MEDS: FOLIC ACID 1 MG TAB PO SCH (08:41)
[2020-07-08] MEDS: CALCIUM CARBONATE 500 MG (TUMS) TAB.CHEW PO SCH (08:41)
[2020-07-08] MEDS: PANTOPRAZOLE 20 MG TABLET (PROTONIX) PO SCH (08:41)
[2020-07-08] MEDS: FLUoxetine HCL 20 MG (PROzac) CAP PO SCH (08:41)
[2020-07-08] MEDS: SENNA W/DOCUSATE (SENOKOT S) TABLET PO SCH ×2 (09:00→21:57)
[2020-07-08] MEDS: polyethylene glycoL POWDER 17 GM (MIRALAX) PACK PO SCH ×2 (09:00→21:57)
[2020-07-08] MEDS: DOCUSATE SODIUM 100 MG (COLACE) CAP PO SCH ×2 (09:00→21:56)
--- NOTE | 2020-07-08 11:58 | PM&R Progress Note ---
Subjective HPI/CC On Admission Date Seen by Provider: Jul 08, 2020 Time Seen by Provider: 12:15 Subjective/Events-last exam 07/08/20: Patient doing well Sugars improved No pain reported DC planning 07/07/20: Monitor closely Sugars are reviewed Pain is good DC planned for Friday07/06/20: No major issues DC planned for Friday Wound vac DC. Reviewed sugars 07/05/20: Pt doing very well Blood sugars reviewed Pain is controlled Wound-vac will be changed to portable if okay with Dr. Sosa 07/04/20: Doing pretty well Blood sugars stable Wound vac in place No significant new issues 07/03/20: Pt very anxious Blood sugar good at 149 Denies any significant new issues Pain is controlled Participating in therapy Wound-vac changed per protocol 07/02/20: In much better mood today Pain is controlled Toradol only given once BM+ Sugars 150's improved no hypoglycemia 07/01/20: Patient having a lot of pain currently so we gave pain meds and Xanax and Toradol was ordered Venofer fell and spilled on floor Sugars are improved Monitoring closely 06/30/20: Decreasing Levemir and OHA Hypoglycemia noted Accuchecks prn ordered Monitoring closely Wound vac changed to ours and doing well 06/29/20: Wound vac management graciously accepted by Dr Sosa Midline will be placed for additional iron infusions Vit B12 maintained also Hgb stable at 8.6 Pain controlled Sugar low this am so will monitor that closely Review of Systems General: Fatigue, Malaise Musculoskeletal: leg pain Objective Exam Vital Signs Vital Signs Date Time Temp Pulse Resp B/P (MAP) Pulse Ox O2 Delivery O2 Flow Rate FiO2 07/08/20 20:12 Room Air 07/08/20 16:25 36.4 76 16 119/80 (93) 99 Capillary Refill : Less Than 3 Seconds General Appearance: No Apparent Distress, WD/WN, Obese, Other (pale) HEENT: PERRL/EOMI, Normal ENT Inspection, Pharynx Normal Neck: Full Range of Motion, Normal Inspection, Non Tender, Supple, Carotid Bruit Respiratory: Chest Non Tender, Lungs Clear, Normal Breath Sounds, No Accessory Muscle Use, No Respiratory Distress Cardiovascular: Regular Rate, Rhythm, No Edema, No Gallop, No JVD, No Murmur, Normal Peripheral Pulses Gastrointestinal: Normal Bowel Sounds, No Organomegaly, No Pulsatile Mass, Non Tender, Soft Back: Normal Inspection, No CVA Tenderness, No Vertebral Tenderness Extremity: Normal Capillary Refill, Normal Inspection, Normal Range of Motion (except right leg), Non Tender, No Calf Tenderness, No Pedal Edema Neurologic/Psychiatric: Alert, Oriented x3, No Motor/Sensory Deficits, Normal Mood/Affect, Motor Weakness (right leg) Skin: Normal Color, Warm/Dry Lymphatic: No Adenopathy Results/Procedures Lab Patient resulted labs reviewed. FIM Transfers Therapy Code Descriptions/Definitions Functional [place] Measure: 0=Not Assessed/NA 4=Minimal Assistance 1=Total Assistance 5=Supervision or Setup 2=Maximal Assistance 6=Modified [place] 3=Moderate Assistance 7=Complete IndependenceSCALE: Activities may be completed with or without assistive devices. 0-Ufvztthinf-umuqqoo completes the activity by him/herself with no assistance from a helper. 5-Set-up or Clean-up Assistance-helper sets up or cleans up; patient completes activity. [place] assists only prior to or following the activity. 4-Supervision or Touching Assistance-helper provides verbal cues and/or touching/steadying and/or contact guard assistance as patient completes activity. Assistance may be provided throughout the activity or intermittently. 3-Partial/Moderate Assistance-helper does LESS THAN HALF the effort. [place] lifts, holds or supports trunk or limbs, but provides less than half the effort. 2-Substantial/Maximal Assistance-helper does MORE THAN HALF the effort. [place] lifts or holds trunk or limbs and provides more than half the effort. 6-Qmobugwkb-xhcsds does ALL the effort. Patient does none of the effort to complete the activity. Or, the assistance of 2 or more helpers is required for the patient to complete the activity. If activity was not attempted, code reason: 7-Patient Refused. 9-Not Applicable-not attempted and the patient did not perform the activity before the current illness, exacerbation or injury. 10-Not Attempted due to Environmental Limitations-(lack of equipment, weather restraints, etc.). 88-Not Attempted due to Medical Conditions or Safety Concerns. Roll Left to Right (QC): 6 Sit to Lying (QC): 6 Sit to Stand (QC): 6 Chair/Nfl-iq-Qlixq Xfer(QC): 6 Car Transfer (QC): 6 Gait Training Does the Patient Walk?: Yes Distance: 150' x2 Walk 10 feet (QC): 5 Walk 50 ft with 2 Turns(QC): 5 Walk 150 ft (QC): 5 Walking 10ft/uneven surface-QC: 4 Gait Persons Needed: 1 Gait Assistive Device: Walker Platform Wheelchair Training Does the Pt Use a Wheelchair?: Yes Wheel 50 ft with 2 turns (QC): 6 Wheel 150 ft (QC): 6 Type of Wheelchair: Manual Stair Training 1 Step (curb) (QC): 88 4 Steps (QC): 88 12 Steps (QC): 88 Balance Picking up an Object (QC): 88 ADL-Treatment Eating (QC): 6 Oral Hygiene (QC): 6 Shower/Bathe Self (QC): 6 Upper Body Dressing (QC): 6 Lower Body Dressing (QC): 6 On/Off Footwear (QC): 6 Toileting Hygiene (QC): 6 Toilet Transfer (QC): 6 Assessment/Plan Assessment and Plan Assess & Plan/Chief Complaint Assessment: s/p right distal hip fracture bucky breakage s/p revision 06/23/[address] [place] [address] Randhawa with removal of deep implant and replacement Morbid obesity BMI 47 RAY on CPAP Night time hypoxia DM with variable sugars Post op anemia due to acute blood loss HTN GERD Plan: IRF protocol Pain control Monitor hgb Iron infusions? 06/29/20: Midline Venofer Dr Sosa for wound vac management and is appreciated Pain control Monitor hypoglycemia 06/30/20: Decrease insulin and OHA Monitor pain Fall risk Wound vac 07/01/20: Pain control Added Toradol Monitor closely 07/02/20: Monitor pain Monitor sugars 07/03/20: Monitor sugars closely Wound vac 07/04/20: Monitor pain Wound vac per Dr Sosa Minimize insulin 07/05/20: Monitor sugar Wound vac Glucerna 07/06/20: Monitor sugars Wound vac DC Improved status 07/07/20: Monitor closely Sugars reviewed Pain meds 07/08/20: DC planning Monitor sugar (1) History of revision of total replacement of right hip joint (2) Diabetes (3) Obesity, morbid, BMI 50 or higher (4) RAY on CPAP RAHUL BRIDGES DO Jul 08, 2020 11:58
--- NOTE | 2020-07-08 12:21 | Progress Note ---
Subjective Date Seen by a Provider: Jul 08, 2020 Time Seen by a Provider: 12:00 Subjective/Events-last exam doing well. tolerating rehab well. mild serous weeping from lower lateral incicision. minimal redness. no fluctuance. Objective Exam Vital Signs Date Time Temp Pulse Resp B/P (MAP) Pulse Ox O2 Delivery O2 Flow Rate FiO2 07/08/20 09:00 Room Air 07/08/20 06:08 36.2 68 18 123/58 (79) 97 Room Air 07/07/20 20:30 Room Air 07/07/20 17:15 36.8 73 16 122/60 (80) 95 Room Air l I & O 07/08/20 07:00 Intake Total 1065 ml Balance 1065 ml Capillary Refill : Less Than 3 Seconds General Appearance: No Apparent Distress HEENT: PERRL/EOMI Neck: Full Range of Motion Respiratory: Chest Non Tender, Lungs Clear Cardiovascular: Regular Rate, Rhythm Gastrointestinal: normal bowel sounds, non tender, soft Extremity: Normal Capillary Refill, Other (mild serous weeping with minimal redness, no fluctuance) Neurologic/Psychiatric: Alert, Oriented x3 Skin: Normal Color Lymphatic: No Adenopathy Results Lab Laboratory Tests 07/07/20 16:55: Glucometer 167H 07/07/20 20:18: Glucometer 168H 07/08/20 05:39: Glucometer 140H 07/08/20 11:03: Glucometer 151H Assessment/Plan Assessment/Plan Assess & Plan/Chief Complaint s/p right femur ORIF with revision and large lateral LE closed wound with provena wound vac. cont all currrent therpies. cont keflex and BID dressing change. LOURDES RODRIGUEZ MD Jul 08, 2020 12:21
--- NOTE | 2020-07-08 12:32 | Physical Therapy Daily Note ---
PT Daily Note-Current Subjective Pt. agrees to Rx, likes to walk Pain Location: No Pain Reported Mental Status Patient Orientation: Normal For Age Transfers SCALE: Activities may be completed with or without assistive devices. 2-Ubliopfwli-wuvvhey completes the activity by him/herself with no assistance from a helper. 5-Set-up or Clean-up Assistance-helper sets up or cleans up; patient completes activity. [place] assists only prior to or following the activity. 4-Supervision or Touching Assistance-helper provides verbal cues and/or touching/steadying and/or contact guard assistance as patient completes acti vity. Assistance may be provided throughout the activity or intermittently. 3-Partial/Moderate Assistance-helper does LESS THAN HALF the effort. [place] lifts, holds or supports trunk or limbs, but provides less than half the effort. 2-Substantial/Maximal Assistance-helper does MORE THAN HALF the effort. [place] lifts or holds trunk or limbs and provides more than half the effort. 0-Mymlxevhq-zbhftc does ALL the effort. Patient does none of the effort to complete the activity. Or, the assistance of 2 or more helpers is required for the patient to complete the activity. If activity was not attempted, code reason: 7-Patient Refused. 9-Not Applicable-not attempted and the patient did not perform the activity before the current illness, exacerbation or injury. 10-Not Attempted due to Environmental Limitations-(lack of equipment, weather restraints, etc.). 88-Not Attempted due to Medical Conditions or Safety Concerns. all TRFs mod I Weight Bearing Right Lower Extremity: Right Touch Toe Bearing right knee immobilizer on with activity, she can have it off when in bed or in recliner with legs elevated Gait Training Does the Patient Walk?: Yes Walk 150 ft (QC): 5 Gait Persons Needed: 1 Gait Assistive Device: Walker Platform 200ft x 2, 50 x 1 SBA, good technique, a little fast Exercises Supine Ex: Bridging (left only), Ankle pumps, Quad Set, Glut sets, Heel Slides (left), Straight leg raise, Hip abd/add Supine Reps: 15 Assessment Current Status: Excellent Progress PT Short Term Goals Short Term Goals Time Frame: Jul 05, 2020 Roll Left & Right: 6 Sit to lyin Lying to sitting on side of be: 6 Sit to stand: 6 Chair/mra-so-cjyeq transfer: 5 Walk 10 feet: 5 Walk 50 feet with two turns: 5 Walk 150 feet: 5 PT Detention Goals Detention Goals PT Conductor/Engineer Goals Time Frame: Jul 19, 2020 Roll Left & Right (QC): 6 Sit to Lying (QC): 6 Lying-Sitting on Side/Bed(QC): 6 Sit to Stand (QC): 6 Chair/Igl-th-Lprph Xfer(QC): 6 Toilet Transfer (QC): 6 Car Transfer (QC): 6 Does the Patient Walk: Yes Walk 10 feet (QC): 6 Walk 50ft with 2 Turns (QC): 6 Walk 150 ft (QC): 6 Walking 10ft on Uneven Surface: 6 1 Step (curb) (QC): 6 4 Steps (QC): 3 12 Steps (QC): 88 Picking up an Object (QC): 88 Wheel 50 feet with 2 turns (QC: 9 Wheel 150 feet: 9 PT Plan Treatment/Plan Treatment Plan: Continue Plan of Care Treatment Plan: Bed Mobility, Education, Functional Activity Zo[place], Functional Strength, Group Therapy, Gait, Safety, Therapeutic Exercise, Transfers Treatment Duration: Jul 19, 2020 Frequency: At least 5 of 7 days/Wk (IRF) Estimated Hrs Per Day: 1.5 hours per day Patient and/or Family Agrees t: Yes Safety Risks/Education Patient Education: Gait Training, Correct Positioning, Safety Issues Teaching Recipient: Patient Teaching Methods: Demonstration, Discussion Response to Teaching: Verbalize Understanding, Return Demonstration, Reinforcement Needed Time/GCodes Time In: 1100 Time Out: 1125 Total Billed Treatment Time: 25 Total Billed Treatment 1,EX15m,GT10m MICHELLE ROSADO QUOTER Jul 08, 2020 12:32
[2020-07-08 16:25] VITALS: BP 119/80
[2020-07-08] MEDS: CYCLOBENZAPRINE 10 MG (FLEXERIL) TAB PO PRN (21:53)
[2020-07-08] MEDS: LORATADINE (CLARITIN) 10 MG TAB PO SCH (21:56)
[2020-07-09] MEDS: HYDROmorphone (DILAUDID) 2 MG TAB PO PRN ×4 (06:39→22:11)
[2020-07-09] MEDS: ACETAMINOPHEN 500 MG TAB (TYLENOL) PO SCH ×3 (06:39→23:53)
[2020-07-09] MEDS: CEPHALEXIN 250 MG (KEFLEX) CAP PO SCH ×3 (06:39→21:39)
[2020-07-09] MEDS: LEVOTHYROXINE 75 MCG (LEVOTHROID) TABLET PO SCH (06:39)
[2020-07-09] MEDS: inSUlin ASPART (NovoLOG) 1 UNIT/0.01 ML (CHARGE PER UNIT) SC SCH ×5 (06:43→21:45)
[2020-07-09 06:45] VITALS: BP 131/58
[2020-07-09] MEDS: ASPIRIN E.C. 81 MG (ECOTRIN) TAB PO SCH ×2 (08:57→21:39)
[2020-07-09] MEDS: FLUoxetine HCL 20 MG (PROzac) CAP PO SCH (08:58)
[2020-07-09] MEDS: MULTIVIT W/MINERALS TAB (THERAGRAN M) PO SCH (08:58)
[2020-07-09] MEDS: CYANOCOBALAMIN 1,000 MCG (VITAMIN B-12) TABLET PO SCH (08:58)
[2020-07-09] MEDS: NAPROXEN 250 MG (NAPROSYN) TABLET PO SCH ×2 (08:58→21:39)
[2020-07-09] MEDS: CALCIUM CARBONATE 500 MG (TUMS) TAB.CHEW PO SCH (08:58)
[2020-07-09] MEDS: FOLIC ACID 1 MG TAB PO SCH (08:58)
[2020-07-09] MEDS: LACTOBACILLUS ACIDOPHILUS (PROBIOTIC) CAPSULE PO SCH (08:58)
[2020-07-09] MEDS: PANTOPRAZOLE 20 MG TABLET (PROTONIX) PO SCH (08:58)
[2020-07-09] MEDS: COLESTIPOL 1 GM (COLESTID) TAB PO SCH ×2 (08:59→21:38)
[2020-07-09] MEDS: SENNA W/DOCUSATE (SENOKOT S) TABLET PO SCH ×2 (09:00→21:54)
[2020-07-09] MEDS: DOCUSATE SODIUM 100 MG (COLACE) CAP PO SCH ×2 (09:00→21:54)
[2020-07-09] MEDS: polyethylene glycoL POWDER 17 GM (MIRALAX) PACK PO SCH ×2 (09:00→19:38)
--- NOTE | 2020-07-09 10:55 | Progress Note ---
Subjective Date Seen by a Provider: Jul 09, 2020 Time Seen by a Provider: 09:25 Subjective/Events-last exam Patient reports right leg tenderness of the lateral incision. She reports that she feels like she has been smelling a foul smell from the incision. Still reports that it is drainage clear yellow drainage. Objective Exam Vital Signs Date Time Temp Pulse Resp B/P (MAP) Pulse Ox O2 Delivery O2 Flow Rate FiO2 07/09/20 09:00 Room Air 07/08/20 20:12 Room Air 07/08/20 16:25 36.4 76 16 119/80 (93) 99 I & O 07/09/20 07:00 Intake Total 2480 ml Balance 2480 ml Capillary Refill : Less Than 3 Seconds General Appearance: No Apparent Distress, WD/WN Neck: Normal Inspection, Supple Respiratory: Normal Breath Sounds, No Accessory Muscle Use, No Respiratory Distress Cardiovascular: Regular Rate, Rhythm, No Edema Gastrointestinal: normal bowel sounds, non tender, soft Extremity: Other (right leg incisions C/D/I except for the lateral incision which does have some mild serous drainge noted. No foul smell noted. There is some tenderness of the incision. Mild localized erythema noted around incisions. No fluctuance noted. ) Neurologic/Psychiatric: Alert, Oriented x3 Skin: Normal Color, Warm/Dry Results Lab Laboratory Tests 07/08/20 11:03: Glucometer 151H 07/08/20 15:50: Glucometer 151H 07/08/20 21:11: Glucometer 227H 07/09/20 06:35: Glucometer 140H Assessment/Plan Assessment/Plan Assess & Plan/Chief Complaint s/p right femur ORIF with revision and large lateral LE closed wound with provena wound vac. cont all currrent therpies. cont keflex and BID dressing change. SHANELLE MITTAL APRN Jul 09, 2020 10:54
--- NOTE | 2020-07-09 11:48 | PM&R Progress Note ---
Subjective HPI/CC On Admission Date Seen by Provider: Jul 09, 2020 Time Seen by Provider: 12:00 Subjective/Events-last exam 07/09/20: Patient doing well No change in pain Checked meds and labs DC planned for tomorrow 07/08/20: Patient doing well Sugars improved No pain reported DC planning 07/07/20: Monitor closely Sugars are reviewed Pain is good DC planned for Friday07/06/20: No major issues DC planned for Friday Wound vac DC. Reviewed sugars 07/05/20: Pt doing very well Blood sugars reviewed Pain is controlled Wound-vac will be changed to portable if okay with Dr. Sosa 07/04/20: Doing pretty well Blood sugars stable Wound vac in place No significant new issues 07/03/20: Pt very anxious Blood sugar good at 149 Denies any significant new issues Pain is controlled Participating in therapy Wound-vac changed per protocol 07/02/20: In much better mood today Pain is controlled Toradol only given once BM+ Sugars 150's improved no hypoglycemia 07/01/20: Patient having a lot of pain currently so we gave pain meds and Xanax and Toradol was ordered Venofer fell and spilled on floor Sugars are improved Monitoring closely 06/30/20: Decreasing Levemir and OHA Hypoglycemia noted Accuchecks prn ordered Monitoring closely Wound vac changed to ours and doing well 06/29/20: Wound vac management graciously accepted by Dr Sosa Midline will be placed for additional iron infusions Vit B12 maintained also Hgb stable at 8.6 Pain controlled Sugar low this am so will monitor that closely Review of Systems General: Fatigue, Malaise Objective Exam Vital Signs Vital Signs Date Time Temp Pulse Resp B/P (MAP) Pulse Ox O2 Delivery O2 Flow Rate FiO2 07/09/20 09:00 Room Air 07/08/20 16:25 36.4 76 16 119/80 (93) 99 Capillary Refill : Less Than 3 Seconds General Appearance: No Apparent Distress, WD/WN HEENT: PERRL/EOMI, Normal ENT Inspection, Pharynx Normal Neck: Normal Inspection, Supple Respiratory: Normal Breath Sounds, No Accessory Muscle Use, No Respiratory Distress Cardiovascular: Regular Rate, Rhythm, No Edema Gastrointestinal: Normal Bowel Sounds, No Organomegaly, No Pulsatile Mass, Non Tender, Soft Back: Normal Inspection, No CVA Tenderness, No Vertebral Tenderness Extremity: Other (right leg incisions C/D/I except for the lateral incision which does have some mild serous drainge noted. No foul smell noted. There is some tenderness of the incision. Mild localized erythema noted around incisions. No fluctuance noted. ) Neurologic/Psychiatric: Alert, Oriented x3 Skin: Normal Color, Warm/Dry Lymphatic: No Adenopathy Results/Procedures Lab Patient resulted labs reviewed. [facility] Transfers Therapy Code Descriptions/Definitions Functional [place] Measure: 0=Not Assessed/NA 4=Minimal Assistance 1=Total Assistance 5=Supervision or Setup 2=Maximal Assistance 6=Modified [place] 3=Moderate Assistance 7=Complete IndependenceSCALE: Activities may be completed with or without assistive devices. 5-Btutjzbcba-ajmebfr completes the activity by him/herself with no assistance from a helper. 5-Set-up or Clean-up Assistance-helper sets up or cleans up; patient completes activity. [place] assists only prior to or following the activity. 4-Supervision or Touching Assistance-helper provides verbal cues and/or touching/steadying and/or contact guard assistance as patient completes activity. Assistance may be provided throughout the activity or intermittently. 3-Partial/Moderate Assistance-helper does LESS THAN HALF the effort. [place] lifts, holds or supports trunk or limbs, but provides less than half the effort. 2-Substantial/Maximal Assistance-helper does MORE THAN HALF the effort. [place] lifts or holds trunk or limbs and provides more than half the effort. 7-Kagamqbaj-vjyvvs does ALL the effort. Patient does none of the effort to complete the activity. Or, the assistance of 2 or more helpers is required for the patient to complete the activity. If activity was not attempted, code reason: 7-Patient Refused. 9-Not Applicable-not attempted and the patient did not perform the activity before the current illness, exacerbation or injury. 10-Not Attempted due to Environmental Limitations-(lack of equipment, weather restraints, etc.). 88-Not Attempted due to Medical Conditions or Safety Concerns. Roll Left to Right (QC): 6 Sit to Lying (QC): 6 Sit to Stand (QC): 6 Chair/Aum-kp-Zyzqg Xfer(QC): 6 Car Transfer (QC): 6 Gait Training Does the Patient Walk?: Yes Distance: 150' x2 Walk 10 feet (QC): 5 Walk 50 ft with 2 Turns(QC): 5 Walk 150 ft (QC): 5 Walking 10ft/uneven surface-QC: 4 Gait Persons Needed: 1 Gait Assistive Device: Walker Platform Wheelchair Training Does the Pt Use a Wheelchair?: Yes Wheel 50 ft with 2 turns (QC): 6 Wheel 150 ft (QC): 6 Type of Wheelchair: Manual Stair Training 1 Step (curb) (QC): 88 4 Steps (QC): 88 12 Steps (QC): 88 Balance Picking up an Object (QC): 88 ADL-Treatment Eating (QC): 6 Oral Hygiene (QC): 6 Shower/Bathe Self (QC): 6 Upper Body Dressing (QC): 6 Lower Body Dressing (QC): 6 On/Off Footwear (QC): 6 Toileting Hygiene (QC): 6 Toilet Transfer (QC): 6 Assessment/Plan Assessment and Plan Assess & Plan/Chief Complaint Assessment: s/p right distal hip fracture bucky breakage s/p revision 06/23/[address] [place] [address] Randhawa with removal of deep implant and replacement Morbid obesity BMI 47 RAY on CPAP Night time hypoxia DM with variable sugars Post op anemia due to acute blood loss HTN GERD Plan: IRF protocol Pain control Monitor hgb Iron infusions? 06/29/20: Midline Venofer Dr Sosa for wound vac management and is appreciated Pain control Monitor hypoglycemia 06/30/20: Decrease insulin and OHA Monitor pain Fall risk Wound vac 07/01/20: Pain control Added Toradol Monitor closely 07/02/20: Monitor pain Monitor sugars 07/03/20: Monitor sugars closely Wound vac 07/04/20: Monitor pain Wound vac per Dr Sosa Minimize insulin 07/05/20: Monitor sugar Wound vac Glucerna 07/06/20: Monitor sugars Wound vac DC Improved status 07/07/20: Monitor closely Sugars reviewed Pain meds 07/08/20: DC planning Monitor sugar 07/09/20: Monitor closely Monitor sugar (1) History of revision of total replacement of right hip joint (2) Diabetes (3) Obesity, morbid, BMI 50 or higher (4) RAY on CPAP RAHUL BRIDGES DO Jul 09, 2020 11:48
[2020-07-09] MEDS: CYCLOBENZAPRINE 10 MG (FLEXERIL) TAB PO PRN (21:38)
[2020-07-09] MEDS: LORATADINE (CLARITIN) 10 MG TAB PO SCH (21:39)
[2020-07-10] MEDS: HYDROmorphone (DILAUDID) 2 MG TAB PO PRN ×2 (04:11→10:18)
[2020-07-10] MEDS: inSUlin ASPART (NovoLOG) 1 UNIT/0.01 ML (CHARGE PER UNIT) SC SCH ×2 (05:54→11:59)
[2020-07-10 05:58] VITALS: BP 109/55
[2020-07-10] MEDS: ACETAMINOPHEN 500 MG TAB (TYLENOL) PO SCH (06:16)
[2020-07-10] MEDS: CYCLOBENZAPRINE 10 MG (FLEXERIL) TAB PO PRN (06:16)
[2020-07-10] MEDS: LEVOTHYROXINE 75 MCG (LEVOTHROID) TABLET PO SCH (06:16)
[2020-07-10] MEDS: CEPHALEXIN 250 MG (KEFLEX) CAP PO SCH (06:16)
[2020-07-10] MEDS ORDERED: NAPR250T6 PO (06:52)
[2020-07-10] MEDS ORDERED: CYCL10TA9 PO (06:52)
[2020-07-10] MEDS ORDERED: CEPH250C PO (06:52)
[2020-07-10] MEDS ORDERED: HYDR2TAB6 PO (06:52)
[2020-07-10] MEDS ORDERED: INSU100V5 SQ (06:52)
[2020-07-10] MEDS ORDERED: ASPI-1238 PO (06:52)
[2020-07-10] MEDS ORDERED: ALPR.25T PO (06:52)
[2020-07-10] MEDS ORDERED: FOLI1TAB33 PO (06:52)
--- NOTE | 2020-07-10 06:54 | D/C HH Face to Face Order ---
D/C Face to Face Orders Reconcile Patient Problems Problems Reviewed?: Yes Instructions for Patient Home Health Patient Instructions/FollowUp: [facility] 1 week Physician to follow Patient: [facility] Discharge Diet for Home: ADA Diet Patient Problems: Right femur fracture revision Patient Data-Allergies,Ht & Wt Patient Allergies: Coded Allergies: tramadol (Unverified Allergy, Unknown, Nausea, 12/24/19) dizzy, nausea, inability to think hydrocodone (Unverified Adverse Reaction, Unknown, Nausea, 12/24/19) dizzy, nausea, inability to think oxycodone (Unverified Adverse Reaction, Unknown, Nausea, 12/24/19) dizzy, nausea, inabiity to think Home Health Need/Face to Face Date of Face to Face: Jul 10, 2020 Clinical Findings: Generalized weakness and fatigue, Muscle weakness, Non or partial weight bearing, Pain with ambulation, Unsteady gait I have seen Pt txox-iy-qowd: Yes Discharged To: Home Diagnosis/Conditions: Revision right femur fracture Patient is Homebound due to: [place] fall risk due to instabilty, Muscle weakness, Non-weight bearing, Pain w/ambulation Homebound Status Due to the above stated illness, injury or surgical procedure (medical condition or diagnosis) and associated clinical findings, the patient is homebound because of his/her inability to leave home except with aid of a supportive device and/or person AND leaving the home requires a considerable and taxing effort or is medically contraindicated. Pt req the following assistanc: Walker, Wheelchair Home Health Nursing Orders Home Health Services Order: Nursing Services, [facility]-Evaluate & Treat, Physical Therapy-Evaluate & Treat Home Health Infusion Therapy Line Start Date: Jun 29, 2020 Certify Stmt I certify that this patient is under my care and that I, a nurse practitioner or a physician; a medical clerical assistant working with me, had a face to face encounter that - meets the physician face to face encounter requirements with this patient as dated. RAHUL BRIDGES DO Jul 10, 2020 06:54
--- NOTE | 2020-07-10 06:55 | Discharge Summary ---
Diagnosis/Chief Complaint Date of Admission Jun 28, 2020 at 15:06 Date of Discharge Discharge Date: Jul 10, 2020 Discharge Diagnosis Assessment: s/p right distal hip fracture bucky breakage s/p revision 06/23/[address] [facility] [address] Randhawa with removal of deep implant and replacement Morbid obesity BMI 47 RAY on CPAP Night time hypoxia DM with variable sugars Post op anemia due to acute blood loss HTN GERD Incisional cellulitis placed on Keflex by Dr Sosa Plan: IRF protocol Pain control Monitor hgb Iron infusions? 06/29/20: Midline Venofer Dr Sosa for wound vac management and is appreciated Pain control Monitor hypoglycemia 06/30/20: Decrease insulin and OHA Monitor pain Fall risk Wound vac 07/01/20: Pain control Added Toradol Monitor closely 07/02/20: Monitor pain Monitor sugars 07/03/20: Monitor sugars closely Wound vac 07/04/20: Monitor pain Wound vac per Dr Sosa Minimize insulin 07/05/20: Monitor sugar Wound vac Glucerna 07/06/20: Monitor sugars Wound vac DC Improved status 07/07/20: Monitor closely Sugars reviewed Pain meds 07/08/20: DC planning Monitor sugar (1) History of revision of total replacement of right hip joint (2) Diabetes (3) Obesity, morbid, BMI 50 or higher (4) RAY on CPAP Discharge Summary Discharge Physical Examination Allergies: Coded Allergies: tramadol (Unverified Allergy, Unknown, Nausea, 12/24/19) dizzy, nausea, inability to think hydrocodone (Unverified Adverse Reaction, Unknown, Nausea, 12/24/19) dizzy, nausea, inability to think oxycodone (Unverified Adverse Reaction, Unknown, Nausea, 12/24/19) dizzy, nausea, inabiity to think Vitals & I&Os Vital Signs Date Time Temp Pulse Resp B/P (MAP) Pulse Ox O2 Delivery O2 Flow Rate FiO2 07/10/20 09:00 Room Air 07/10/20 05:58 36.4 73 16 109/55 (73) 96 General Appearance: Alert, Oriented X3, Cooperative Respiratory: Clear to Auscultation Cardiovascular: Regular Rate Psych/Mental Status: Mental Status NL Hospital Course Was the Problem List Reviewed?: Yes Standard course while in IRF after transferring from [facility] after revision of right femur fracture when bucky broke. Patient was placed on wound vac and Dr Sosa managed that. Incisional cellulitis managed with Keflex addition by Dr Sosa after wound vac DC after 7 days as per protocol. Pain was well controlled with Dilaudid and sugars improved after hypoglycemia episodes resolved when stopped OHA. Overall patient did very well and tolerated IV iron infusions and labs remained stable. BM regimen maintained and she was ready for DC home. Labs (last 24 hrs) Laboratory Tests 06/28/20 16:07: Glucometer 104 06/28/20 20:24: Glucometer 137H 06/29/20 05:10: White Blood Count 6.1, Red Blood Count 2.79L, Hemoglobin 8.6L, Hematocrit 26L, Mean Corpuscular Volume 93, Mean Corpuscular Hemoglobin 31, Mean Corpuscular Hemoglobin Concent 33, Red Cell Distribution Width 15.1H, Platelet Count 145, Mean Platelet Volume 10.4, Immature Granulocyte % (Auto) 4, Neutrophils (%) (Auto) 63, Lymphocytes (%) (Auto) 23, Monocytes (%) (Auto) 7, Eosinophils (%) (Auto) 3, Basophils (%) (Auto) 1, Neutrophils # (Auto) 3.9, Lymphocytes # (Auto) 1.4, Monocytes # (Auto) 0.4, Eosinophils # (Auto) 0.2, Basophils # (Auto) 0.0, Immature Granulocyte # (Auto) 0.2H, Sodium Level 140, Potassium Level 4.0, Chloride Level 107, Carbon Dioxide Level 24, Anion Gap 9, Blood Urea Nitrogen 7, Creatinine 0.60, Estimat Glomerular Filtration Rate > 60, BUN/Creatinine Ratio 12, Glucose Level 149H, Calcium Level 8.8, Corrected Calcium 9.8, Iron Level 62, Total Bilirubin 0.4, Aspartate Amino Transf (AST/SGOT) 22, Alanine Aminotransferase (ALT/SGPT) 16, Alkaline Phosphatase 79, Total Protein 5.3L, Albumin 2.7L 06/29/20 06:17: Glucometer 142H 06/29/20 10:52: Glucometer 67L 06/29/20 14:42: Glucometer 66L 06/29/20 20:16: Glucometer 111H 06/30/20 05:49: Glucometer 114H 06/30/20 10:01: Glucometer 121H 06/30/20 11:12: Glucometer 70 06/30/20 16:19: Glucometer 132H 06/30/20 20:53: Glucometer 130H 07/01/20 06:05: Glucometer 123H 07/01/20 09:53: Glucometer 150H 07/01/20 15:46: Glucometer 181H 07/01/20 20:22: Glucometer 158H 07/02/20 05:48: Glucometer 131H 07/02/20 10:55: Glucometer 131H 07/02/20 15:18: Glucometer 160H 07/02/20 20:30: Glucometer 197H 07/03/20 05:52: Glucometer 144H 07/03/20 10:20: Glucometer 171H 07/03/20 11:10: Glucometer 147H 07/03/20 16:27: Glucometer 173H 07/03/20 20:45: Glucometer 169H 07/04/20 06:09: Glucometer 120H 07/04/20 11:03: Glucometer 148H 07/04/20 11:06: Glucometer 152H 07/04/20 16:09: Glucometer 176H 07/04/20 21:16: Glucometer 162H 07/05/20 06:03: Glucometer 162H 07/05/20 11:42: Glucometer 123H 07/05/20 16:44: Glucometer 179H 07/05/20 20:12: Glucometer 176H 07/06/20 06:16: Glucometer 146H 07/06/20 11:43: Glucometer 151H 07/06/20 16:22: Glucometer 175H 07/06/20 20:49: Glucometer 148H 07/07/20 05:30: Glucometer 154H 07/07/20 11:10: Glucometer 135H 07/07/20 16:55: Glucometer 167H 07/07/20 20:18: Glucometer 168H 07/08/20 05:39: Glucometer 140H 07/08/20 11:03: Glucometer 151H 07/08/20 15:50: Glucometer 151H 07/08/20 21:11: Glucometer 227H 07/09/20 06:35: Glucometer 140H 07/09/20 11:10: Glucometer 155H 07/09/20 16:11: Glucometer 192H 07/09/20 20:13: Glucometer 187H 07/10/20 05:46: Glucometer 147H 07/10/20 07:45: White Blood Count 4.6, Red Blood Count 3.93, Hemoglobin 11.8, Hematocrit 37, Mean Corpuscular Volume 93, Mean Corpuscular Hemoglobin 30, Mean Corpuscular Hemoglobin Concent 32, Red Cell Distribution Width 16.1H, Platelet Count 234, Mean Platelet Volume 8.7L, Immature Granulocyte % (Auto) 1, Neutrophils (%) (Auto) 57, Lymphocytes (%) (Auto) 28, Monocytes (%) (Auto) 9, Eosinophils (%) (Auto) 5, Basophils (%) (Auto) 0, Neutrophils # (Auto) 2.6, Lymphocytes # (Auto) 1.3, Monocytes # (Auto) 0.4, Eosinophils # (Auto) 0.2, Basophils # (Auto) 0.0, Immature Granulocyte # (Auto) 0.0, Sodium Level 141, Potassium Level 4.0, Chloride Level 108H, Carbon Dioxide Level 22, Anion Gap 11, Blood Urea Nitrogen 9, Creatinine 0.70, Estimat Glomerular Filtration Rate > 60, BUN/Creatinine Ratio 13, Glucose Level 167H, Calcium Level 10.0, Corrected Calcium 10.2H, Total Bilirubin 0.4, Aspartate Amino Transf (AST/SGOT) 18, Alanine Aminotransferase (ALT/SGPT) 16, Alkaline Phosphatase 161H, Total Protein 6.9, Albumin 3.7 07/10/20 11:11: Glucometer 203H Pending Labs Laboratory Tests 06/28/20 16:07: Glucometer 104 06/28/20 20:24: Glucometer 137 06/29/20 05:10: White Blood Count 6.1, Red Blood Count 2.79, Hemoglobin 8.6, Hematocrit 26, Mean Corpuscular Volume 93, Mean Corpuscular Hemoglobin 31, Mean Corpuscular Hemoglobin Concent 33, Red Cell Distribution Width 15.1, Platelet Count 145, Mean Platelet Volume 10.4, Immature Granulocyte % (Auto) 4, Neutrophils (%) (Auto) 63, Lymphocytes (%) (Auto) 23, Monocytes (%) (Auto) 7, Eosinophils (%) (Auto) 3, Basophils (%) (Auto) 1, Neutrophils # (Auto) 3.9, Lymphocytes # (Auto) 1.4, Monocytes # (Auto) 0.4, Eosinophils # (Auto) 0.2, Basophils # (Auto) 0.0, Immature Granulocyte # (Auto) 0.2, Sodium Level 140, Potassium Level 4.0, Chloride Level 107, Carbon Dioxide Level 24, Anion Gap 9, Blood Urea Nitrogen 7, Creatinine 0.60, Estimat Glomerular Filtration Rate > 60, BUN/Creatinine Ratio 12, Glucose Level 149, Calcium Level 8.8, Corrected Calcium 9.8, Iron Level 62, Total Bilirubin 0.4, Aspartate Amino Transf (AST/SGOT) 22, Alanine Aminotransferase (ALT/SGPT) 16, Alkaline Phosphatase 79, Total Protein 5.3, Albumin 2.7 06/29/20 06:17: Glucometer 142 06/29/20 10:52: Glucometer 67 06/29/20 14:42: Glucometer 66 06/29/20 20:16: Glucometer 111 06/30/20 05:49: Glucometer 114 06/30/20 10:01: Glucometer 121 06/30/20 11:12: Glucometer 70 06/30/20 16:19: Glucometer 132 06/30/20 20:53: Glucometer 130 07/01/20 06:05: Glucometer 123 07/01/20 09:53: Glucometer 150 07/01/20 15:46: Glucometer 181 07/01/20 20:22: Glucometer 158 07/02/20 05:48: Glucometer 131 07/02/20 10:55: Glucometer 131 07/02/20 15:18: Glucometer 160 07/02/20 20:30: Glucometer 197 07/03/20 05:52: Glucometer 144 07/03/20 10:20: Glucometer 171 07/03/20 11:10: Glucometer 147 07/03/20 16:27: Glucometer 173 07/03/20 20:45: Glucometer 169 07/04/20 06:09: Glucometer 120 07/04/20 11:03: Glucometer 148 07/04/20 11:06: Glucometer 152 07/04/20 16:09: Glucometer 176 07/04/20 21:16: Glucometer 162 07/05/20 06:03: Glucometer 162 07/05/20 11:42: Glucometer 123 07/05/20 16:44: Glucometer 179 07/05/20 20:12: Glucometer 176 07/06/20 06:16: Glucometer 146 07/06/20 11:43: Glucometer 151 07/06/20 16:22: Glucometer 175 07/06/20 20:49: Glucometer 148 07/07/20 05:30: Glucometer 154 07/07/20 11:10: Glucometer 135 07/07/20 16:55: Glucometer 167 07/07/20 20:18: Glucometer 168 07/08/20 05:39: Glucometer 140 07/08/20 11:03: Glucometer 151 07/08/20 15:50: Glucometer 151 07/08/20 21:11: Glucometer 227 07/09/20 06:35: Glucometer 140 07/09/20 11:10: Glucometer 155 07/09/20 16:11: Glucometer 192 07/09/20 20:13: Glucometer 187 07/10/20 05:46: Glucometer 147 07/10/20 07:45: White Blood Count 4.6, Red Blood Count 3.93, Hemoglobin 11.8, Hematocrit 37, Mean Corpuscular Volume 93, Mean Corpuscular Hemoglobin 30, Mean Corpuscular Hemoglobin Concent 32, Red Cell Distribution Width 16.1, Platelet Count 234, Mean Platelet Volume 8.7, Immature Granulocyte % (Auto) 1, Neutrophils (%) (Auto) 57, Lymphocytes (%) (Auto) 28, Monocytes (%) (Auto) 9, Eosinophils (%) (Auto) 5, Basophils (%) (Auto) 0, Neutrophils # (Auto) 2.6, Lymphocytes # (Auto) 1.3, Monocytes # (Auto) 0.4, Eosinophils # (Auto) 0.2, Basophils # (Auto) 0.0, Immature Granulocyte # (Auto) 0.0, Sodium Level 141, Potassium Level 4.0, C hloride Level 108, Carbon Dioxide Level 22, Anion Gap 11, Blood Urea Nitrogen 9, Creatinine 0.70, Estimat Glomerular Filtration Rate > 60, BUN/Creatinine Ratio 13, Glucose Level 167, Calcium Level 10.0, Corrected Calcium 10.2, Total Bilirubin 0.4, Aspartate Amino Transf (AST/SGOT) 18, Alanine Aminotransferase (ALT/SGPT) 16, Alkaline Phosphatase 161, Total Protein 6.9, Albumin 3.7 07/10/20 11:11: Glucometer 203 Discharge Home Medications: Active Scripts Active Dilaudid (Hydromorphone HCl) 2 Mg Tablet 1 Mg PO Q4H PRN Folic Acid 1 Mg Tablet 1 Mg PO DAILY Levemir (Insulin Determir) 1,000 Units/10 Ml Soln 5 Unit SQ BID 7 Days Xanax Tablet (Alprazolam) 0.25 Mg Tab 0.25 Mg PO Q8H PRN Naproxen 250 Mg Tablet 500 Mg PO BID Aspirin EC (Aspirin) 81 Mg Tablet.dr 81 Mg PO BID Cyclobenzaprine HCl 10 Mg Tablet 10 Mg PO Q8H PRN Cephalexin 250 Mg Capsule 500 Mg PO TID Reported Eliquis (Apixaban) 2.5 Mg Tablet 2.5 Mg PO BID Benadryl Allergy (Diphenhydramine HCl) 25 Mg Tablet 25-50 Mg PO HS PRN Tylenol (Acetaminophen) 325 Mg Capsule 325-650 Mg PO Q8H PRN Cyanocobalamin Injection (Cyanocobalamin) 1,000 Mcg/Ml Inj 1,000 Mcg IM MONTHLY Vitamin D2 (Ergocalciferol (Vitamin D2)) 1,250 Mcg Capsule 1,250 Mcg PO TU,FRI Probiotic (L.acidoph & Paracasei,B.lactis) 1 Each Capsule 1 Each PO DAILY Fluoxetine HCl 20 Mg Capsule 20 Mg PO DAILY Trulicity (Dulaglutide) 1.5 Mg/0.5 Ml Pen.injctr 1.5 Mg SQ WED Buspirone HCl 10 Mg Tablet 10 Mg PO TID PRN Multivitamin 1 Each Tablet 1 Each PO DAILY Vitamin B-12 (Cyanocobalamin (Vitamin B-12)) 1,000 Mcg Tablet 1,000 Mcg PO DAILY Calcium Carbonate 500 Mg Tablet 500 Mg PO DAILY Black Elderberry 575 mg Cap (Elderberry Fruit and Flower) 1 Each Capsule 1 Each PO DAILY Omeprazole 20 Mg Capsule.dr 20 Mg PO BID Loratadine 10 Mg Tablet 10 Mg PO HS Levothyroxine Sodium 75 Mcg Tablet 75 Mcg PO DAILY Colestipol HCl 1 Gm Tablet 1 Gm PO BID Instructions to patient/family Please see electronic discharge instructions given to patient. Diagnosis/Problems Diagnosis/Problems (1) History of revision of total replacement of right hip joint (2) Diabetes (3) Obesity, morbid, BMI 50 or higher (4) RAY on CPAP RAHUL BRIDGES DO Jul 10, 2020 06:55
--- NOTE | 2020-07-10 07:32 | Occupational Ther Daily Note ---
OT Current Status-Daily Note Subjective Pt in shower. Agrees to therapy. No c/o pain. Pt to discharge today. Mental Status/Objective Patient Orientation: Person, Place, Time, Situation Attachments: Other-See Comments (knee immobilizer) ADL-Treatment Per previous therapy sessions and pt report. Pt is independent with showering. Independent with dressing. Independent with oral care sitting at sink. Independent with w/c or platform FWW with toileting and toilet transfer. Independent with eating. After session, pt sitting in w/c eating breakfast. Call light/phone in reach. All needs met in room. Therapy Code Descriptions/Definitions Functional [place] Measure: 0=Not Assessed/NA 4=Minimal Assistance 1=Total Assistance 5=Supervision or Setup 2=Maximal Assistance 6=Modified [place] 3=Moderate Assistance 7=Complete IndependenceSCALE: Activities may be completed with or without assistive devices. 1-Trojiubmjb-jyyswmw completes the activity by him/herself with no assistance from a helper. 5-Set-up or Clean-up Assistance-helper sets up or cleans up; patient completes activity. [place] assists only prior to or following the activity. 4-Supervision or Touching Assistance-helper provides verbal cues and/or touching/steadying and/or contact guard assistance as patient completes activity. Assistance may be provided throughout the activity or intermittently. 3-Partial/Moderate Assistance-helper does LESS THAN HALF the effort. [place] lifts, holds or supports trunk or limbs, but provides less than half the effort. 2-Substantial/Maximal Assistance-helper does MORE THAN HALF the effort. [place] lifts or holds trunk or limbs and provides more than half the effort. 6-Bqgdegmwq-dpghdy does ALL the effort. Patient does none of the effort to complete the activity. Or, the assistance of 2 or more helpers is required for the patient to complete the activity. If activity was not attempted, code reason: 7-Patient Refused. 9-Not Applicable-not attempted and the patient did not perform the activity before the current illness, exacerbation or injury. 10-Not Attempted due to Environmental Limitations-(lack of equipment, weather restraints, etc.). 88-Not Attempted due to Medical Conditions or Safety Concerns. Eating (QC): 6 Oral Hygiene (QC): 6 Shower/Bathe Self (QC): 6 Upper Body Dressing (QC): 6 Lower Body Dressing (QC): 6 On/Off Footwear: 6 Toileting Hygiene (QC): 6 Toilet Transfer (QC): 6 Pt either already has all equipment needed or has been ordered and is at her home. OT Short Term Goals Short Term Goals Time Frame: Jul 05, 2020 Oral hygiene: 5 Toileting hygiene: 5 Shower/bathe self: 5 Lower body dressin OT Assault Boat Coxswain Goals Assault Boat Coxswain Goals Time Frame: Jul 14, 2020 Eating (QC): 6 (met) Oral Hygiene (QC): 6 (met) Toileting Hygiene (QC): 6 (met) Shower/Bathe Self (QC): 6 (met) Upper Body Dressing (QC): 6 (met) Lower Body Dressing (QC): 6 (met) On/Off Footwear (QC): 6 (met) Additional Goals: 1-Demonstrate ADL Tasks, 2-Verbalize Understanding, 3- ImproveStrength/Zoë 1=Demonstrate adherence to instructed precautions during ADL tasks. 2=Patient will verbalize/demonstrate understanding of assistive devices/modifications for ADL. 3=Patient will improve strength/tolerance for activity to enable patient to perform ADL's. OT Education/Plan Discharge Recommendations Plan/Recommendations: Discharge/Goals Met (discharging today and has met all goals) Equpiment Recommendations-D/C: Extended Bath Bench, Bedside Commode, Other, See Comments (rigid leg yarn handler) Treatment Plan/Plan of Care Patient would benefit from OT for education, treatment and training to promote independence in ADL's, mobility, safety and/or upper extremity function for ADL's. Plan of Care: ADL Retraining, Functional Mobility, Group Exercise/Act as Ind, UE Funct Exercise/Act Treatment Duration: Jul 14, 2020 Frequency: At least 5 of 7 days/Wk (IRF) Estimated Hrs Per Day: 1.5 hours per day Agreement: Yes Rehab Potential: Fair Time/GCodes Start Time: 07:00 Stop Time: 07:30 Total Time Billed (hr/min): 30 Billed Treatment Time 1 visit-ADL 2 (30 min) AGUILAR MAYFIELD Jul 10, 2020 07:32
[2020-07-10 07:51] LABS: BASOPHILS % (AUTO) 0 % (0-10); EOSINOPHILS # (AUTO) 0.2 10^3/uL (0.0-0.3); EOSINOPHILS % (AUTO) 5 % (0-10); HEMATOCRIT 37 % (35-52); HEMOGLOBIN 11.8 g/dL (11.5-16.0); LYMPHOCYTES # (AUTO) 1.3 10^3/uL (1.0-4.0); LYMPHOCYTES % (AUTO) 28 % (12-44); MEAN CORPUSCULAR HEMOGLOBIN 30 pg (25-34); MEAN CORPUSCULAR HGB CONC 32 g/dL (32-36); MEAN CORPUSCULAR VOLUME 93 fL (80-99); MEAN PLATELET VOLUME 8.7 fL (9.0-12.2); MONOCYTES # (AUTO) 0.4 10^3/uL (0.0-1.0); MONOCYTES % (AUTO) 9 % (0-12); NEUTROPHILS # (AUTO) 2.6 10^3/uL (1.8-7.8); NEUTROPHILS % (AUTO) 57 % (42-75); PLATELET COUNT 234 10^3/uL (130-400); WHITE BLOOD COUNT 4.6 10^3/uL (4.3-11.0)
[2020-07-10 08:10] LABS: ALANINE AMINOTRANSFERASE 16 U/L (0-55); ALBUMIN 3.7 GM/DL (3.2-4.5); ALKALINE PHOSPHATASE 161 U/L (40-136); BILIRUBIN,TOTAL 0.4 MG/DL (0.1-1.0); BUN/CREATININE RATIO 13; CARBON DIOXIDE 22 MMOL/L (21-32); CHLORIDE 108 MMOL/L (98-107); GFR ESTIMATED > 60; GLUCOSE 167 MG/DL (70-105); SODIUM 141 MMOL/L (135-145); TOTAL PROTEIN 6.9 GM/DL (6.4-8.2)
[2020-07-10] MEDS: CALCIUM CARBONATE 500 MG (TUMS) TAB.CHEW PO SCH (08:36)
[2020-07-10] MEDS: LACTOBACILLUS ACIDOPHILUS (PROBIOTIC) CAPSULE PO SCH (08:36)
[2020-07-10] MEDS: ASPIRIN E.C. 81 MG (ECOTRIN) TAB PO SCH (08:36)
[2020-07-10] MEDS: PANTOPRAZOLE 20 MG TABLET (PROTONIX) PO SCH (08:36)
[2020-07-10] MEDS: FOLIC ACID 1 MG TAB PO SCH (08:36)
[2020-07-10] MEDS: FLUoxetine HCL 20 MG (PROzac) CAP PO SCH (08:36)
[2020-07-10] MEDS: NAPROXEN 250 MG (NAPROSYN) TABLET PO SCH (08:36)
[2020-07-10] MEDS: MULTIVIT W/MINERALS TAB (THERAGRAN M) PO SCH (08:36)
[2020-07-10] MEDS: COLESTIPOL 1 GM (COLESTID) TAB PO SCH (08:36)
[2020-07-10] MEDS: CYANOCOBALAMIN 1,000 MCG (VITAMIN B-12) TABLET PO SCH (08:37)
[2020-07-10] MEDS: polyethylene glycoL POWDER 17 GM (MIRALAX) PACK PO SCH (08:45)
[2020-07-10] MEDS: DOCUSATE SODIUM 100 MG (COLACE) CAP PO SCH (08:45)
[2020-07-10] MEDS: SENNA W/DOCUSATE (SENOKOT S) TABLET PO SCH (08:46)
--- NOTE | 2020-07-10 09:49 | Physical Therapy Daily Note ---
PT Daily Note-Current Subjective Pt is in the wheelchair on arrival. No complaints. Mental Status Patient Orientation: Person, Place, Time, Situation Transfers SCALE: Activities may be completed with or without assistive devices. 3-Dqvoolfhpx-midigoa completes the activity by him/herself with no assistance from a helper. 5-Set-up or Clean-up Assistance-helper sets up or cleans up; patient completes activity. [place] assists only prior to or following the activity. 4-Supervision or Touching Assistance-helper provides verbal cues and/or touching/steadying and/or contact guard assistance as patient completes activity. Assistance may be provided throughout the activity or intermittently. 3-Partial/Moderate Assistance-helper does LESS THAN HALF the effort. [place] lifts, holds or supports trunk or limbs, but provides less than half the effort. 2-Substantial/Maximal Assistance-helper does MORE THAN HALF the effort. [place] lifts or holds trunk or limbs and provides more than half the effort. 4-Judhydszr-mguwos does ALL the effort. Patient does none of the effort to complete the activity. Or, the assistance of 2 or more helpers is required for the patient to complete the activity. If activity was not attempted, code reason: 7-Patient Refused. 9-Not Applicable-not attempted and the patient did not perform the activity before the current illness, exacerbation or injury. 10-Not Attempted due to Environmental Limitations-(lack of equipment, weather restraints, etc.). 88-Not Attempted due to Medical Conditions or Safety Concerns. Roll Left & Right (QC): 6 Sit to Lying (QC): 6 Lying to Sitting/Side of Bed(Q: 6 Sit to Stand (QC): 6 Chair/Fwy-tz-Sjwqg Xfer(QC): 6 Toilet Transfer (QC): 6 Car Transfer (QC): 6 Weight Bearing Right Lower Extremity: Right Touch Toe Bearing right knee immobilizer on with activity, she can have it off when in bed or in recliner with legs elevated Gait Training Does the Patient Walk?: Yes Distance: 150ft x3 Walk 10 feet (QC): 6 Walk 50 ft with 2 Turns(QC): 6 Walk 150 ft (QC): 6 Walking 10ft/uneven surface-QC: 6 Gait Persons Needed: 1 Gait Assistive Device: Walker Platform Wheelchair Training Does the Pt Use a Wheelchair?: Yes Wheel 50 ft with 2 turns (QC): 6 Wheel 150 ft (QC): 6 Type of Wheelchair: Manual Stair Training 1 Step (curb) (QC): 7 4 Steps (QC): 7 12 Steps (QC): 7 Pt did not think it was possible to ascend/descend steps due to the long leg immobilizer. I demonstrated how it could be done, but she continued to refuse to attempt steps. She has a new ramp at the home where she will be going. Balance Picking up an Object (QC): 6 Assessment Current Status: Good Progress Pt is independent with all mobility. She was unwilling to attempt the curb step or stairs. Pt to go home with a platform walker and wheelchair. PT Short Term Goals Short Term Goals Time Frame: Jul 05, 2020 Roll Left & Right: 6 Sit to lyin Lying to sitting on side of be: 6 Sit to stand: 6 Chair/dle-yu-ctysg transfer: 5 Walk 10 feet: 5 Walk 50 feet with two turns: 5 Walk 150 feet: 5 PT Investigator Cash Shortage Goals Investigator Cash Shortage Goals PT Snf Goals Time Frame: Jul 19, 2020 Roll Left & Right (QC): 6 Sit to Lying (QC): 6 Lying-Sitting on Side/Bed(QC): 6 Sit to Stand (QC): 6 Chair/Bvg-qg-Txvhn Xfer(QC): 6 Toilet Transfer (QC): 6 Car Transfer (QC): 6 Does the Patient Walk: Yes Walk 10 feet (QC): 6 Walk 50ft with 2 Turns (QC): 6 Walk 150 ft (QC): 6 Walking 10ft on Uneven Surface: 6 1 Step (curb) (QC): 6 4 Steps (QC): 3 12 Steps (QC): 88 Picking up an Object (QC): 88 Wheel 50 feet with 2 turns (QC: 9 Wheel 150 feet: 9 PT Plan Treatment/Plan Treatment Plan: Continue Plan of Care Treatment Plan: Bed Mobility, Education, Functional Activity Zoë, Functional Strength, Group Therapy, Gait, Safety, Therapeutic Exercise, Transfers Treatment Duration: Jul 19, 2020 Frequency: At least 5 of 7 days/Wk (IRF) Estimated Hrs Per Day: 1.5 hours per day Patient and/or Family Agrees t: Yes Discharge Recommendations Plan Pt going to family member's home with a newly installed ramp. She will use a manual wheelchair and platform walker, respectively, for community and in home ambulation. Therapy Discharge Recommendati: Home & Family Equpiment Recommendations-D/C: Manual Wheelchair, Other, Please Explain Discharge Status/Home Program Pt has a dual platform walker, and her insurance has purchased a wheelchair. Time/GCodes Time In: 904 Time Out: 927 Total Billed Treatment Time: 23 Total Billed Treatment 1, gt 15, fa 10 KELLY RHODES PT Jul 10, 2020 09:49
--- NOTE | 2020-07-10 10:28 | Therapy Team Discharge Summary ---
Therapy Discharge Summary Discharge Recommendations Date of Discharge Physical Therapy Patient came to rehab with ORIF R femur with IMN. Upon evaluation patient performed bed mobility with independence, supine <-> sit min assist, sit <-> stand CGA, transfers CGA, car transfer CGA, ambulated 60' with a bilateral mehrdad tform walker with CGA (including 50' with at least 2 turns of 90 degrees and 10' over an uneven surface). Patient has been performing bed mobility and transfer training, balance and endurance training, functional strengthening, gait training, and education, to improve functional mobility and independence at home. Patient has made good progress and has met all of her medical terminologist goals. Now, patient performs bed mobility and transfers with independence, car transfer independent, ambulates 150' with a bilateral platform walker with independence (including 50' with at least 2 turns of 90 degrees and 10' over an uneven surface), and can propel a manual wheelchair with independence, and can cloth picker an object from the floor with independence. Patient is discharging from this facility today and will be discharged from PT at this time. Occupational Therapy Decreased UE Strength PT Revenue Agent Goals Custodial Goals PT Custodial Goals Time Frame: Jul 19, 2020 Roll Left to Right (QC): 6 Sit to Lying (QC): 6 Lying-Sitting on Side/Bed(QC): 6 Sit to Stand (QC): 6 Chair/Sid-zo-Tyyuo Xfer(QC): 6 Car Transfer (QC): 6 Does the Patient Walk: Yes Walk 10 feet (QC): 6 Walk 10ft-Uneven Surface(QC): 6 Walk 50ft with 2 Turns (QC): 6 Walk 150 ft (QC): 6 Wheel 50 feet with 2 turns (QC: 9 1 Step (curb) (QC): 6 4 Steps (QC): 3 12 Steps (QC): 88 Picking up an Object (QC): 88 OT Custodial Goals Custodial Goals Time Frame: Jul 14, 2020 Eating (QC): 6 (met) Oral Hygiene (QC): 6 (met) Shower/Bathe Self (QC): 6 (met) Upper Body Dressing (QC): 6 (met) Lower Body Dressing (QC): 6 (met) On/Off Footwear (QC): 6 (met) Toileting Hygiene (QC): 6 (met) Toilet/Commode Transfer (QC): 6 Additional Goals: 1-Demonstrate ADL Tasks, 2-Verbalize Understanding, 3- ImproveStrength/Zoë 1=Demonstrate adherence to instructed precautions during ADL tasks. 2=Patient will verbalize/demonstrate understanding of assistive devices/modifications for ADL. 3=Patient will improve strength/tolerance for activity to enable patient to perform ADL's. LORI CHAMBERLAIN PT Jul 10, 2020 10:27
[2020-07-10] MEDS ORDERED: HYDR2TAB30 PO (11:24)
--- NOTE | 2020-07-10 11:41 | Therapy Team Discharge Summary ---
Therapy Discharge Summary Discharge Recommendations Date of Discharge Occupational Therapy Pt admitted to ARU s/p ORIF R femur with IMN. At [facility], pt was independent with all ADLS and functional mobility using bilateral canes. Upon initial evaluation, pt was independent with eating and oral care, min a showering, set up upper body dressing, min A lower body dressing, min A footwear, and CGA toileting. OT txs with focus on increasing safety and independence with ADLs and functional mobility, as well as increasing BUE strength and activity tolerance. Pt made good progress towards goals, meeting all goals at independent level. Pt to discharge from facility on this date, d/c from OT. Decreased UE Strength PT [employer] Goals [facility] Goals PT [facility] Goals Time Frame: Jul 19, 2020 Roll Left to Right (QC): 6 Sit to Lying (QC): 6 Lying-Sitting on Side/Bed(QC): 6 Sit to Stand (QC): 6 Chair/Fpo-zs-Bhpve Xfer(QC): 6 Car Transfer (QC): 6 Does the Patient Walk: Yes Walk 10 feet (QC): 6 Walk 10ft-Uneven Surface(QC): 6 Walk 50ft with 2 Turns (QC): 6 Walk 150 ft (QC): 6 Wheel 50 feet with 2 turns (QC: 9 1 Step (curb) (QC): 6 4 Steps (QC): 3 12 Steps (QC): 88 Picking up an Object (QC): 88 OT [employer] Goals [employer] Goals Time Frame: Jul 14, 2020 Eating (QC): 6 (met) Oral Hygiene (QC): 6 (met) Shower/Bathe Self (QC): 6 (met) Upper Body Dressing (QC): 6 (met) Lower Body Dressing (QC): 6 (met) On/Off Footwear (QC): 6 (met) Toileting Hygiene (QC): 6 (met) Toilet/Commode Transfer (QC): 6 (met) Additional Goals: 1-Demonstrate ADL Tasks, 2-Verbalize Understanding, 3-ImproveStrength/Zoë 1=Demonstrate adherence to instructed precautions during ADL tasks. 2=Patient will verbalize/demonstrate understanding of assistive devices/modifications for ADL. 3=Patient will improve strength/tolerance for activity to enable patient to perform ADL's. LETY MACARIO OT Jul 10, 2020 11:41
== END 2020-07-10 12:30 | disposition home health service (06) | DRG 949 ==
PROVIDERS: ADMIT Internal Medicine; ATTEND Internal Medicine
DX: T84.11 Breakdown (mechanical) of internal fixation device of bones of limb (principal); Z68.42 Body mass index [BMI] 45.0-49.9, adult; D62 Acute posthemorrhagic anemia; T81.41XA Infection following a procedure, superficial incisional surgical site, initial encounter; L03.115 Cellulitis of right lower limb; E11.40 Type 2 diabetes mellitus with diabetic neuropathy, unspecified; E11.649 Type 2 diabetes mellitus with hypoglycemia without coma; E66.01 Morbid (severe) obesity due to excess calories; G47.33 Obstructive sleep apnea (adult) (pediatric); E78.00 Pure hypercholesterolemia, unspecified; I10 Essential (primary) hypertension; K21.9 Gastro-esophageal reflux disease without esophagitis; M19.91 Primary osteoarthritis, unspecified site; Z79.4 Long term (current) use of insulin; Z96.641 Presence of right artificial hip joint; Z79.1 Long term (current) use of non-steroidal anti-inflammatories (NSAID); Z79.82 Long term (current) use of aspirin; Z88.6 Allergy status to analgesic agent
CPT/HCPCS: 36415; 76937; 80053; 82962; 83540; 85025

== ENCOUNTER → 2020-08-01 | Outpatient (CLI) | payer OTHER ==
[~2020-08-01] MED LIST changes: +ACET-2267 PO; +ACET-2650 PO; +ACET325C7 PO; +ALPR.25T PO; +ASPI-1238 PO; +CALC500T64 PO; +CEPH250C PO; +CNC1KV IM; +CYAN-41 PO; +CYCL10TA9 PO; +DIPH25TA65 PO; +DULA1.5P2 SQ; +ERGO50006 PO; +FLUO20CA46 PO; +FOLI1TAB33 PO; +GLIP-30 PO; +HYDR2TAB30 PO; +HYDR2TAB6 PO; +INSU100V5 SQ; +L.AC1CAP6 PO; +MELO15TA39 PO; +NAPR-1088 PO; +NAPR-915 PO
--- NOTE | 2020-08-01 13:21 | Diagnostic Imaging Report ---
INDICATION: Diarrhea. COMPARISON: None available. TECHNIQUE: 3 radiographs of abdomen dated 08/01/2020 FINDINGS: Surgical clips within the right upper quadrant abdomen. Gas is noted throughout the colon, including extending the pelvis. A few loops of small bowel within the right abdomen appear to be mildly dilated measuring just over 3 cm in size. No differential air-fluid levels. No free air. No suspicious calcifications. Postsurgical changes partially visualized within the right femur. No acute osseous abnormality. IMPRESSION: Mildly dilated loops of small bowel within the right abdomen. This may relate to developing bowel obstruction or focal ileus. Recommend clinical correlation. If there is clinical concern for underlying bowel obstruction, then a CT of the abdomen and pelvis would be recommended. Dictated by: Dictated on workstation # [id number]
== END ==
LOC: RAD FS 12:33
PROVIDERS: ATTEND Nurse Practitioner Family
DX: R19.7 Diarrhea, unspecified (principal); R11.2 Nausea with vomiting, unspecified; R50.9 Fever, unspecified; R10.84 Generalized abdominal pain; Z92.29 Personal history of other drug therapy
CPT/HCPCS: 74018

== ENCOUNTER → 2020-08-04 | Outpatient (CLI) | payer OTHER ==
[~2020-08-04] MED LIST changes: +CATHETER FLUSH 10 ML SYR IV PRN; +HOLD METFORMIN - RECEIVED CONTRAST 20 ML VIAL IV SCH; +IOHEXOL 350 MG/ML 100 ML (OMNIPAQUE 350) VIAL IV ONE; +NS 100 ML (IVPB) BAG IV ONE
--- NOTE | 2020-08-04 10:42 | Diagnostic Imaging Report ---
INDICATION: Diarrhea, nausea and vomiting. TECHNIQUE: Multiple contiguous axial images were obtained through the abdomen and pelvis after administration of intravenous contrast. Auto Exposure Controls were utilized during the CT exam to meet ALARA standards for radiation dose reduction. All CT scans use one or more of the following dose optimizing techniques: automated exposure control, MA and/or KvP adjustment based on patient size and exam type or iterative reconstruction. There is no prior CT for comparison The visualized portions of the lung bases are clear. There were no pleural fluid collections. There is no free intraperitoneal air. The liver shows no focal lesions. Patient has had previous cholecystectomy. Spleen is mildly enlarged measuring 14 cm in greatest diameter. The adrenals and pancreas and kidneys appear normal. There is no retroperitoneal mass or adenopathy. There is no ascites or abnormal fluid question. Visualized bowel loops show no sign of obstruction. There is a ventral hernia in the midline in the pelvis containing fat. IMPRESSION: No abdominal mass or abnormal fluid collection. Evidence of previous cholecystectomy. There is mild splenomegaly. There is a ventral hernia in the midline in the upper pelvis with hernia defect measuring about 4.8 cm. The hernia contains fat but no loops of bowel. There is no sign of bowel obstruction or focal bowel wall thickening. Dictated by: Dictated on workstation # [id number]
== END ==
LOC: RAD FS 09:00
PROVIDERS: ATTEND Nurse Practitioner Family
DX: K43.9 Ventral hernia without obstruction or gangrene (principal); R16.1 Splenomegaly, not elsewhere classified; R19.7 Diarrhea, unspecified; R11.2 Nausea with vomiting, unspecified
CPT/HCPCS: 74177

== ENCOUNTER 2021-01-03 09:25 | Outpatient (CLI) | payer OTHER ==
[~2021-01-03] VITALS: Ht 165.1 cm; Wt 132.8 kg
[2021-01-03 09:14] VITALS: BP 144/53
[~2021-01-03 09:25] MED LIST changes: -CATHETER FLUSH 10 ML SYR IV PRN; +ERGO1250 PO; -ERGO50006 PO; -HOLD METFORMIN - RECEIVED CONTRAST 20 ML VIAL IV SCH; -IOHEXOL 350 MG/ML 100 ML (OMNIPAQUE 350) VIAL IV ONE; -NS 100 ML (IVPB) BAG IV ONE
[2021-01-03] MEDS ORDERED: EPINEPHrine INJECTION 1 MG/ML AMP IM PRN (10:00)
[2021-01-03] MEDS ORDERED: diphenhydrAMINE 50 MG/ML INJ (BENADRYL) IV PRN (10:00)
[2021-01-03] MEDS ORDERED: CASIRIVIMAB/IMDEVIMAB 1,200 MG in NS (IVPB) 250 ML IV ONE (10:00)
[2021-01-03 10:58] VITALS: BP 114/64
== END 2021-01-03 12:00 | disposition home or self-care (01) ==
LOC: INFUSION 09:25
PROVIDERS: ATTEND Nurse Practitioner Family
DX: Z23 Encounter for immunization (principal); U07.1 COVID-19

== ENCOUNTER → 2021-04-17 | Outpatient (CLI) | payer OTHER ==
[~2021-04-17] MED LIST changes: +CYCL10TA25 PO; -CYCL10TA9 PO; -FLUO20CA46 PO; +FLUO20CA48 PO
--- NOTE | 2021-04-17 16:04 | Diagnostic Imaging Report ---
INDICATION: 46-year-old female, fracture history concerning for osteoporosis. COMPARISON: None. FINDINGS: AP Spine L1-L4: [BMD (g/cm2): 1.094] [T-Score: -0.9] [Z-Score: -1.8] [BMD Previous: na] [BMD % Change: na] LT Hip Neck: [BMD (g/cm2): 0.831] [T-Score: -1.5] [Z-Score: -1.5] LT Hip Total: [BMD (g/cm2):1.008] [T-Score:0.0] [Z-Score: -0.4] [BMD Previous: na] [BMD % Change: na] RT Hip Neck: [BMD (g/cm2):na] [T-Score:na] [Z-Score:nan] RT Hip Total: [BMD (g/cm2):na] [T-score:na] [Z-Score:na] [BMD Previous:na] [BMD % Change:na] *Indicates significant change from prior examination based on 95% confidence level. World Health Organization criteria for BMD interpretation classify patients as Normal (T-score at or above -1.0), Osteopenic (T-score between -1.0 and -2.5) or Osteoporotic (T-score at or below -2.5). LIMITATIONS AND MODIFICATION: None. IMPRESSION: The lowest Z score measures -1.8. The patient is at risk for low bone mineral density/content for chronologic age. Dictated by: Dictated on workstation # [id number]
== END ==
LOC: RAD 11:00
PROVIDERS: ATTEND Internal Medicine Endocrinology, Diabetes & Metabolism
DX: Z78.0 Asymptomatic menopausal state (principal); Z87.81 Personal history of (healed) traumatic fracture
CPT/HCPCS: 77080

== ENCOUNTER → 2021-05-01 | Outpatient (CLI) | payer OTHER ==
--- NOTE | 2021-05-01 12:40 | Diagnostic Imaging Report ---
Indication: Short of breath EXAMINATION: PA and lateral views of the chest. FINDINGS: The heart size and vascularity are normal. Lungs are clear. There is no effusion. There is no acute bony abnormality. IMPRESSION: No acute abnormality is seen. Dictated by: Dictated on workstation # [id number]
== END ==
LOC: RAD FS 11:24
PROVIDERS: ATTEND Nurse Practitioner Family
DX: R06.02 Shortness of breath (principal)
CPT/HCPCS: 71046